=== PATIENT | female | born 1950 | race Caucasian/White ===

== ENCOUNTER 2020-12-19 20:32 | Inpatient (IN) ==
[2020-12-19] MEDS ORDERED: fentaNYL 100 MCG/2 ML VIAL IV PRN (20:38)
[2020-12-19] MEDS ORDERED: ONDANSETRON 4 MG/2 ML VIAL IV ONE (20:38)
--- NOTE | 2020-12-19 20:38 | Emergency Department Note ---
Altered Mental Status HPI General Chief Complaint: Altered Mental Status Stated Complaint: Headache confusion Time Seen by Provider: 12/19/20 20:37 Source: family Mode of arrival: wheelchair Limitations: altered mental status History of Present Illness HPI Narrative: Narrative: The patient is a 70-year-old female brought in by her with a chief complaint of headache and confusion. The patient and the patient's reports she has had a headache off and on for about 10 days now and the reports tonight that she became slightly confused and was complaining of headache. states that she also had her Covid vaccine yesterday.The patient was seen earlier today and was diagnosed with sinusitis and cycling. Related Data Home Medications Medication Instructions Recorded Confirmed albuterol sulfate 90 mcg/actuation See Rx Instructions INHALATION 02/02/20 12/19/20 aerosol inhaler .COMPLEX aspirin 81 mg tablet,delayed See Rx Instructions PO .COMPLEX 02/02/20 12/19/20 release Previous Rx's Medication Instructions Recorded escitalopram oxalate 20 mg tablet 20 mg PO QDAY #90 tab 11/06/19 spironolactone 25 mg tablet See Rx Instructions .ROUTE 11/06/19 .COMPLEX #90 tablet potassium chloride 10 mEq 20 meq PO QDAY #180 tab 05/31/20 tablet,extended release atorvastatin 40 mg tablet 40 mg PO QHS #90 tab 08/05/20 hydrocodone 10 mg-acetaminophen 1 tab PO Q6H PRN #120 tab 12/05/20 325 mg tablet doxycycline hyclate 100 mg capsule 100 mg PO BID 10 Days #20 cap 12/19/20 Allergies Allergy/AdvReac Type Severity Reaction Status Date / Time Penicillins Allergy Severe Rash and Verified 12/19/20 17:47 Psorasis JC Inhibitors Allergy Intermediate Respiratory Verified 12/19/20 17:47 problems, e.g. wheezing olmesartan [From Benicar] Allergy Intermediate Heartburn Verified 12/19/20 17:47 Fentanyl Patch Allergy Intermediate Nausea and Uncoded 02/28/20 09:35 vomiting Review of Systems ROS ROS Narrative: Narrative: Limitations: ROS unobtainable due to patients medical condition [facility] Narrative Patient History Narrative: Narrative: Medical/Surgical/Family History All Active Problems Hyperammonemia (Acute) AMS (altered mental status) (Acute) BLACK (acute kidney injury) (Acute) CHF (congestive heart failure) (Acute) Sinus congestion (Acute) Headache (Acute) Acute ethmoidal sinusitis (Acute) Lymphadenopathy (Acute) Osteoporosis (Acute) Radiculopathy of lumbar region (Chronic) Degenerative joint disease (Chronic) Myofascial pain (Chronic) Chronic, continuous use of opioids (Chronic) Status post replacement of right shoulder joint (Chronic ~2004) History of hysterectomy (Chronic) History of colonoscopy (Chronic 10/01/20) Dizziness (Chronic) Orthostatic hypotension (Chronic) Gouty arthritis of left great toe (Chronic) Psoriatic arthritis (Chronic) Migraines (Chronic) Degeneration of cervical intervertebral disc (Chronic) Hypertriglyceridemia (Chronic) Degenerative disc disease (Chronic) COPD (chronic obstructive pulmonary disease) (Chronic) Depression (Chronic) Abdominal aortic aneurysm (Chronic) Other half-way (current) drug therapy (Chronic) Low back pain syndrome (Chronic) CAD (coronary artery disease) (Chronic) URI (upper respiratory infection) (Chronic) Hypokalemia (Chronic) Intermittent chest pain (Chronic) Hypertension (Chronic) Renal insufficiency (Chronic) Contusion (Chronic) Right wrist sprain (Chronic) Medical History Abdominal aortic aneurysm Acute ethmoidal sinusitis CAD (coronary artery disease) Contusion COPD (chronic obstructive pulmonary disease) Degeneration of cervical intervertebral disc Degenerative disc disease Degenerative joint disease Depression Dizziness Gouty arthritis of left great toe Headache Hypertension Hypertriglyceridemia Hypokalemia Intermittent chest pain Low back pain syndrome Migraines Myofascial pain Orthostatic hypotension 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 Eller History of hysterectomy History of surgery TF JOSE RAUL #1 Lt L2-3 w/o sed 09/21/17 Trigger Point Injection, left Rhomboid w/o sed 07/23/2016 TF JOSE RAUL #1 L2-3, left w/o sed 07/23/2016 TPI\'s Left Rhomboid, Left PSIS 03/24/16 TF JOSE RAUL #2 Left L2-3 w/o sed 03/24/16 TF JOSE RAUL #1 Left L2-3 w/o sed 11/28/15 TF JOSE RAUL #2, Left L2-3 w/o sed 11/12/2014 TF JOSE RAUL #1 Left L2-3 w/o sed 05/29/2014 TF JOSE RAUL #1 L2-3 w/out sed 10-30-13 Lumbar Vertebroplasty L1 w/sed 10/16/2013 TF JOSE RAUL #2 L2-3 right w/out sed. 10-19-12 TF JOSE RAUL #1 Right L2-3 w/o sed 03-29-12 TF JOSE RAUL #2 Right L2-3 w/o sed 08-27-11 TF JOSE RAUL #1 L2-3, Right w/o sed 08-11-11 Status post replacement of right shoulder joint (~2004) Family History Mother Migraines Father Leukemia Heart disease Sister CVA (cerebral vascular accident) Social History Smoking Status: Current every day smoker Alcohol Intake Frequency: does not drink Substance Use: does not use Exam Narrative Narrative: Narrative: General Limitations: altered mental status General appearance: Present alert Head Head: Present atraumatic and normocephalic Eye Eye: Present normal appearance, PERRL and EOMI ENT ENT: Present normal exam, normal oropharynx and mucous membranes moist Neck Neck: Present normal inspection, full ROM and trachea midline Chest Chest: Present normal inspection and symmetric chest wall rise Respiratory Respiratory: Present normal lung sounds bilaterally Cardiovascular Cardiovascular: Present regular rate and normal rhythm Adbominal Abdominal: Present soft and normal bowel sounds; Absent tenderness, guarding, rebound and organomegaly Rectal Rectal: Present deferred Extremities Extremities: Present normal inspection and full ROM; Absent tenderness Back Back: Present normal inspection and full ROM; Absent tenderness Neurological Neurological: Present alert and CN II-XII intact Expanded Neurological Patient oriented to: Present person and place; Absent time Speech: Present fluid speech CRANIAL NERVES: EOM function (II, III, IV, ): Normal, facial sensation (V): Normal, facial palsy (VII): Normal, gag reflex (IX): Normal, spinal accessory function (XI): Normal and tongue deviation (XII): Normal CEREBELLAR FUNCTION: normal gait Motor strength - LUE: 4/5 Motor strength - RUE: 4/5 Motor strength - LLE: 4/5 Motor strength - RLE: 4/5 UPPER MOTOR NEURON EXAM: chase neglect: Normal, pronator drift: Normal, Babinski sign: Normal and sensory extinction: Normal Coma Scale Eye Opening: Spontaneous Coma Scale Motor Response: Obeys Commands Coma Scale Verbal Response: Confused Coma Scale Total: 14 Psychiatric Psychiatric: Present anxious and tearful Skin Skin: Present warm (WNL); Absent rash Course Course Course Narrative: EKG shows no STEMI CT scan of the head shows no acute abnormality. 1 view chest x-ray shows no obvious infiltrate or pneumothorax, final interpretation is per the radiolog ist.Patient's ammonia level is elevated, she was given 1 dose of lactulose, remainder of her LFTs and bilirubin are unremarkable. She does appear to have a mild acute kidney injury her BNP is mildly elevated. She has no chest pain or shortness of breath the patient was treated for her headache, she continues to be mildly confused on repeat reevaluation's. I did speak with the hospitalist, Dr. Bean, who graciously agreed to admit this patient. Vital Signs Vital signs: Vital Signs Temperature 98.1 F 12/19/20 20:33 Pulse Rate 76 12/19/20 20:33 Respiratory Rate 22 12/19/20 20:33 Blood Pressure 201/127 12/19/20 20:33 Pulse Oximetry (%) 96 12/19/20 20:33 Temperature 98.1 F 12/19/20 20:33 Pulse Rate 85 12/19/20 21:30 Respiratory Rate 24 H 12/19/20 21:30 Blood Pressure 208/115 12/19/20 21:30 Pulse Oximetry (%) 93 12/19/20 21:30 [facility] Narrative Medical decision making narrative: Narrative: 70-year-old female with headache and mild confusion negative CT scan of the head, elevated ammonia level, normal LFTs no chest pain or shortness of breath no abdominal pain, afebrile, negative Covid and influenza screening. Patient did receive her first Covid vaccine yesterday which she is experiencing today could possibly be an adverse event from her Covid vaccine. Patient will be admitted for further observation and treatment of her elevated ammonia level and MRI of the brain tomorrow. Lab Data Result diagrams: 12/19/20 20:51 12/19/20 20:51 Labs: Lab Results 12/19/20 12/19/20 12/19/20 Range/Units 20:51 20:51 20:51 WBC 9.3 (4.5-11.0) K/mcL RBC 4.35 (4.00-5.20) M/mcL Hgb 12.4 (12.0-15.0) g/dL Hct 37.6 (36.0-48.0) % MCV 86.4 (80.0-100.0) fL MCH 28.5 (26.0-34.0) pg MCHC 33.0 (31.0-36.0) g/dL RDW 13.8 (11.5-14.5) % Plt Count 266 (140-440) K/mcL MPV 8.8 (7.4-10.4) fL Neut % (Auto) 58.2 (38.0-78.0) % Lymph % (Auto) 31.9 (15.0-49.0) % Frio % (Auto) 5.4 (1.0-12.0) % Eos % (Auto) 3.7 (0.0-7.0) % Baso % (Auto) 0.8 (0.0-2.0) % Lymph # (Auto) 2.97 (1.50-4.80) K/mcL Frio # (Auto) 0.50 (0.10-0.90) K/mcL Eos # (Auto) 0.34 (0.00-0.70) K/mcL Baso # (Auto) 0.07 (0.00-0.20) K/mcL Absolute Neutrophils 5.42 (1.80-8.00) K/mcL VBG Lactic Acid 1.5 (0.5-2.0) mmol/L Sodium 134 (133-145) mmol/L Potassium 3.8 (3.3-5.1) mmol/L Chloride 97 (96-108) mmol/L Carbon Dioxide 20 L (22-30) mmol/L Anion Gap 17.0 H (8.0-16.0) BUN 17 (8-23) mg/dL Creatinine 1.2 H (0.6-1.1) mg/dL GFR Calculation 45 Glucose 133 H (70-105) mg/dL Calcium 9.8 (8.6-10.4) mg/dL Total Bilirubin 0.5 (0.1-1.0) mg/dL AST 19 (<32) U/L ALT 9 (<40) U/L Alkaline Phosphatase 78 (39-117) U/L Ammonia (11-51) umol/L Total Creatine Kinase 49 (24-170) U/L Troponin T (<0.03) ng/mL NT-Pro-B Natriuret Pep (<125.0) pg/mL Total Protein 7.4 (5.9-8.4) gm/dL Albumin 4.4 (3.2-5.2) gm/dL Globulin 3.0 (2.2-3.7) gm/dL Albumin/Globulin Ratio 1.5 (1.0-2.3) Lipase (7-60) U/L Urine Color Urine Appearance (Clear) Urine pH (5.0-9.0) Ur Specific [place] (1.000-1.035) Urine Protein (Negative) mg/dL Urine Glucose (UA) (Negative) mg/dL Urine Ketones (Negative) mg/dL Urine Occult Blood (Negative) mg/dL Urine Nitrate (Negative) Urine Bilirubin (Negative) mg/dL Urine Urobilinogen mg/dL Ur Leukocyte Esterase (Negative) /ug Urine RBC (0-3) /hpf Urine WBC (0-4) /hpf Ur Squamous Epith Cells (0-4) /hpf Urine Bacteria (0) /hpf Ur Culture Indicated? Acetaminophen ug/mL Ethyl Alcohol (<0.010) gm/dL 12/19/20 12/19/20 12/19/20 Range/Units 20:51 20:51 20:51 WBC (4.5-11.0) K/mcL RBC (4.00-5.20) M/mcL Hgb (12.0-15.0) g/dL Hct (36.0-48.0) % MCV (80.0-100.0) fL MCH (26.0-34.0) pg MCHC (31.0-36.0) g/dL RDW (11.5-14.5) % Plt Count (140-440) K/mcL MPV (7.4-10.4) fL Neut % (Auto) (38.0-78.0) % Lymph % (Auto) (15.0-49.0) % Frio % (Auto) (1.0-12.0) % Eos % (Auto) (0.0-7.0) % Baso % (Auto) (0.0-2.0) % Lymph # (Auto) (1.50-4.80) K/mcL Frio # (Auto) (0.10-0.90) K/mcL Eos # (Auto) (0.00-0.70) K/mcL Baso # (Auto) (0.00-0.20) K/mcL Absolute Neutrophils (1.80-8.00) K/mcL VBG Lactic Acid (0.5-2.0) mmol/L Sodium (133-145) mmol/L Potassium (3.3-5.1) mmol/L Chloride (96-108) mmol/L Carbon Dioxide (22-30) mmol/L Anion Gap (8.0-16.0) BUN (8-23) mg/dL Creatinine (0.6-1.1) mg/dL GFR Calculation Glucose (70-105) mg/dL Calcium (8.6-10.4) mg/dL Total Bilirubin (0.1-1.0) mg/dL AST (<32) U/L ALT (<40) U/L Alkaline Phosphatase (39-117) U/L Ammonia 88 H (11-51) umol/L Total Creatine Kinase (24-170) U/L Troponin T < 0.01 (<0.03) ng/mL NT-Pro-B Natriuret Pep (<125.0) pg/mL Total Protein (5.9-8.4) gm/dL Albumin (3.2-5.2) gm/dL Globulin (2.2-3.7) gm/dL Albumin/Globulin Ratio (1.0-2.3) Lipase (7-60) U/L Urine Color Urine Appearance (Clear) Urine pH (5.0-9.0) Ur Specific [place] (1.000-1.035) Urine Protein (Negative) mg/dL Urine Glucose (UA) (Negative) mg/dL Urine Ketones (Negative) mg/dL Urine Occult Blood (Negative) mg/dL Urine Nitrate (Negative) Urine Bilirubin (Negative) mg/dL Urine Urobilinogen mg/dL Ur Leukocyte Esterase (Negative) /ug Urine RBC (0-3) /hpf Urine WBC (0-4) /hpf Ur Squamous Epith Cells (0-4) /hpf Urine Bacteria (0) /hpf Ur Culture Indicated? Acetaminophen 9.3 ug/mL Ethyl Alcohol (<0.010) gm/dL 12/19/20 12/19/20 12/19/20 Range/Units 20:51 20:51 20:51 WBC (4.5-11.0) K/mcL RBC (4.00-5.20) M/mcL Hgb (12.0-15.0) g/dL Hct (36.0-48.0) % MCV (80.0-100.0) fL MCH (26.0-34.0) pg MCHC (31.0-36.0) g/dL RDW (11.5-14.5) % Plt Count (140-440) K/mcL MPV (7.4-10.4) fL Neut % (Auto) (38.0-78.0) % Lymph % (Auto) (15.0-49.0) % Frio % (Auto) (1.0-12.0) % Eos % (Auto) (0.0-7.0) % Baso % (Auto) (0.0-2.0) % Lymph # (Auto) (1.50-4.80) K/mcL Frio # (Auto) (0.10-0.90) K/mcL Eos # (Auto) (0.00-0.70) K/mcL Baso # (Auto) (0.00-0.20) K/mcL Absolute Neutrophils (1.80-8.00) K/mcL VBG Lactic Acid (0.5-2.0) mmol/L Sodium (133-145) mmol/L Potassium (3.3-5.1) mmol/L Chloride (96-108) mmol/L Carbon Dioxide (22-30) mmol/L Anion Gap (8.0-16.0) BUN (8-23) mg/dL Creatinine (0.6-1.1) mg/dL GFR Calculation Glucose (70-105) mg/dL Calcium (8.6-10.4) mg/dL Total Bilirubin (0.1-1.0) mg/dL AST (<32) U/L ALT (<40) U/L Alkaline Phosphatase (39-117) U/L Ammonia (11-51) umol/L Total Creatine Kinase (24-170) U/L Troponin T (<0.03) ng/mL NT-Pro-B Natriuret Pep 361.0 H (<125.0) pg/mL Total Protein (5.9-8.4) gm/dL Albumin (3.2-5.2) gm/dL Globulin (2.2-3.7) gm/dL Albumin/Globulin Ratio (1.0-2.3) Lipase 25 (7-60) U/L Urine Color Urine Appearance (Clear) Urine pH (5.0-9.0) Ur Specific [place] (1.000-1.035) Urine Protein (Negative) mg/dL Urine Glucose (UA) (Negative) mg/dL Urine Ketones (Negative) mg/dL Urine Occult Blood (Negative) mg/dL Urine Nitrate (Negative) Urine Bilirubin (Negative) mg/dL Urine Urobilinogen mg/dL Ur Leukocyte Esterase (Negative) /ug Urine RBC (0-3) /hpf Urine WBC (0-4) /hpf Ur Squamous Epith Cells (0-4) /hpf Urine Bacteria (0) /hpf Ur Culture Indicated? Acetaminophen ug/mL Ethyl Alcohol < 0.010 (<0.010) gm/dL 12/19/20 Range/Units 21:50 WBC (4.5-11.0) K/mcL RBC (4.00-5.20) M/mcL Hgb (12.0-15.0) g/dL Hct (36.0-48.0) % MCV (80.0-100.0) fL MCH (26.0-34.0) pg MCHC (31.0-36.0) g/dL RDW (11.5-14.5) % Plt Count (140-440) K/mcL MPV (7.4-10.4) fL Neut % (Auto) (38.0-78.0) % Lymph % (Auto) (15.0-49.0) % Frio % (Auto) (1.0-12.0) % Eos % (Auto) (0.0-7.0) % Baso % (Auto) (0.0-2.0) % Lymph # (Auto) (1.50-4.80) K/mcL Frio # (Auto) (0.10-0.90) K/mcL Eos # (Auto) (0.00-0.70) K/mcL Baso # (Auto) (0.00-0.20) K/mcL Absolute Neutrophils (1.80-8.00) K/mcL VBG Lactic Acid (0.5-2.0) mmol/L Sodium (133-145) mmol/L Potassium (3.3-5.1) mmol/L Chloride (96-108) mmol/L Carbon Dioxide (22-30) mmol/L Anion Gap (8.0-16.0) BUN (8-23) mg/dL Creatinine (0.6-1.1) mg/dL GFR Calculation Glucose (70-105) mg/dL Calcium (8.6-10.4) mg/dL Total Bilirubin (0.1-1.0) mg/dL AST (<32) U/L ALT (<40) U/L Alkaline Phosphatase (39-117) U/L Ammonia (11-51) umol/L Total Creatine Kinase (24-170) U/L Troponin T (<0.03) ng/mL NT-Pro-B Natriuret Pep (<125.0) pg/mL Total Protein (5.9-8.4) gm/dL Albumin (3.2-5.2) gm/dL Globulin (2.2-3.7) gm/dL Albumin/Globulin Ratio (1.0-2.3) Lipase (7-60) U/L Urine Color Yellow Urine Appearance Hazy A (Clear) Urine pH 6.0 (5.0-9.0) Ur Specific [place] 1.010 (1.000-1.035) Urine Protein Negative (Negative) mg/dL Urine Glucose (UA) Negative (Negative) mg/dL Urine Ketones 5 A (Negative) mg/dL Urine Occult Blood Negative (Negative) mg/dL Urine Nitrate Negative (Negative) Urine Bilirubin Negative (Negative) mg/dL Urine Urobilinogen Negative mg/dL Ur Leukocyte Esterase 25 A (Negative) /ug Urine RBC 1 (0-3) /hpf Urine WBC 4 (0-4) /hpf Ur Squamous Epith Cells 19 H (0-4) /hpf Urine Bacteria None (0) /hpf Ur Culture Indicated? No Acetaminophen ug/mL Ethyl Alcohol (<0.010) gm/dL ED POC Tests ED POC Tests: FITO - Influenza A Negative FITO - Influenza B Negative FITO - SARS Antigen Negative CC TIME Critical Care Time Critical Care Time: Yes Total Critical Care Time: 45 Discharge Plan Patient/Caregiver Discharge Instructions Pt seen by ENTRY LEVEL ACCOUNTING CLERK/PA only: No Clinical Impression: Hyperammonemia, BLACK (acute kidney injury) AMS (altered mental status) Qualifiers: Altered mental status type: unspecified Qualified Code(s): R41.82 - Altered mental status, unspecified CHF (congestive heart failure) Qualifiers: Heart failure type: unspecified Heart failure chronicity: unspecified Qualified Code(s): I50.9 - Heart failure, unspecified Patient Disposition: Xfer As Inpt ([facility]) Condition: Serious
[2020-12-19] MEDS ORDERED: 0.9 % SODIUM CHLORIDE 1,000 ML IV SCH (20:45)
[2020-12-19] MEDS ORDERED: LORazepam 2 MG/ML VIAL IV ONE (21:04)
[2020-12-19] MEDS ORDERED: LORazepam 2 MG/ML VIAL IV PRN (21:07)
[2020-12-19] MEDS ORDERED: LORazepam 2 MG/ML VIAL ONE (21:07)
[2020-12-19] MEDS ORDERED: 0.9 % SODIUM CHLORIDE 1,000 ML IV ONE (21:32)
[2020-12-19 21:47] LABS: Basophils # (Auto) 0.07 K/mcL (0.00-0.20); Basophils % (Auto) 0.8 % (0.0-2.0); Eosinophils # (Auto) 0.34 K/mcL (0.00-0.70); Eosinophils % (Auto) 3.7 % (0.0-7.0); Hematocrit 37.6 % (36.0-48.0); Hemoglobin 12.4 g/dL (12.0-15.0); Lymphocytes # (Auto) 2.97 K/mcL (1.50-4.80); Lymphocytes % (Auto) 31.9 % (15.0-49.0); Mean Cell Volume 86.4 fL (80.0-100.0); Mean Platelet Volume 8.8 fL (7.4-10.4); Monocytes % (Auto) 5.4 % (1.0-12.0); Neutrophils % (Auto) 58.2 % (38.0-78.0); Platelet Count 266 K/mcL (140-440); RBC 4.35 M/mcL (4.00-5.20); Red Cell Distribution Width 13.8 % (11.5-14.5); WBC 9.3 K/mcL (4.5-11.0)
[2020-12-19 22:11] LABS: ALT/SGPT 9 U/L (<40); AST/SGOT 19 U/L (<32); Albumin 4.4 gm/dL (3.2-5.2); Albumin/Globulin Ratio 1.5 (1.0-2.3); Alkaline Phosphatase 78 U/L (39-117); Bilirubin,Total 0.5 mg/dL (0.1-1.0); Blood Urea Nitrogen 17 mg/dL (8-23); Calcium 9.8 mg/dL (8.6-10.4); Carbon Dioxide 20 mmol/L (22-30); Chloride 97 mmol/L (96-108); Creatine Kinase 49 U/L (24-170); Glomerular Filtration Rate 45; Glucose 133 mg/dL (70-105)
[2020-12-19 22:16] LABS: Alcohol, Blood < 10.0 mg/dL; Alcohol,Blood < 0.010 gm/dL (<0.010)
[2020-12-19] MEDS ORDERED: LACTULOSE 20 GM/30 ML ORAL.SOL PO ONE (23:19)
[2020-12-19] MEDS ORDERED: LACTULOSE 20 GM/30 ML ORAL.SOL ONE (23:40)
[2020-12-20 00:17] LABS: Appearance,Urine HAZY (Clear); Bilirubin,Urine Negative (Negative); Color,Urine YELLOW; Culture Indicated,Urine No; Glucose,Urine (UA) Negative (Negative); Ketones,Urine 5 mg/dL (Negative); Leukocyte Esterase,Urine 25 /ug (Negative); Nitrate,Urine Negative (Negative); Protein,Urine Negative (Negative); Urine Blood Negative (Negative); Urine RBC 1 /hpf (0-3); Urine Squamous Epithelial Cell 19 /hpf (0-4); Urine WBC 4 /hpf (0-4); Urobilinogen,Urine Negative
[2020-12-20] MEDS ORDERED: ONDANSETRON 4 MG/2 ML VIAL IV PRN (00:31)
[2020-12-20 01:40] LABS: Amphetamine Screen,Urine None detected; Barbiturate Screen,Urine None detected; Benzodiazepines Screen,Urine None detected; Cannabinoid Screen,Urine Suspect Positive; Cocaine Screen,Urine None detected; Opiate Screen,Urine None detected; Oxycodone, Urine Screen None detected; Phencyclidine Screen,Urine None detected
--- NOTE | 2020-12-20 04:12 | XRay Report ---
CLINICAL INFORMATION: ams COMPARISON: 12/03/2010 FINDINGS: Heart is mildly enlarged accentuated by leftward rotation and portable technique. Mediastinum and pulmonary vessels are normal. Lungs are clear. No effusions. IMPRESSION: No acute disease. Interpreted and Authenticated by: Liam Ambrose 12/20/20
--- NOTE | 2020-12-20 04:17 | Cat Scan Report ---
CLINICAL INFORMATION: Headache and confusion COMPARISON: None. TECHNIQUE: 2.5 mm helical slices were obtained in the skull base to vertex. Following reconstruction, axial reformatted images were reviewed at bone and parenchymal windows. The exam was performed using radiation dose optimization techniques including, but not limited to, automated exposure control, adjustment of the mA and/or kV according to patient size and use of iterative reconstruction technique. FINDINGS: The ventricles, sulci, fissures, and cisterns are symmetrically enlarged compatible with mild age-related atrophy. No extra-axial fluid collections or mass appreciated. A 6 mm infarct in the right thalamus and a 10 mm remote lacunar infarct right frontal white matter are appreciated. Mild patchy chronic ischemic changes seen in the cerebral white matter are expected for age.There is no evidence of hemorrhage, mass effect, or edema. Bone windows show no osseous abnormality. IMPRESSION: Mild atrophy and patchy chronic ischemic changes in deep cerebral white matter. 6 mm remote lacunar infarct right thalamus and 10 mm remote infarct in the right deep frontal white matter. No intracerebral hemorrhage or other acute finding. Interpreted and Authenticated by: Liam Ambrose 12/20/20
[2020-12-20] MEDS ORDERED: ALBUTEROL SULFATE 200 PUFF INHALER INH PRN (07:45)
[2020-12-20] MEDS ORDERED: hydrALAZINE 20 MG/ML VIAL IV PRN (07:46)
[2020-12-20] MEDS ORDERED: SENNOSIDES 1 TABLET PO PRN (07:47)
[2020-12-20] MEDS ORDERED: ACETAMINOPHEN 325 MG TABLET PO PRN (07:47)
--- NOTE | 2020-12-20 08:00 | Internal Med History&Physical ---
HPI History of Present Illness Patient information: Note initiated : 12/20/20 at 7:54 am Service Date, if different from initiated Date: [] Patient: Nazanin Quarles 70 y/o F admitted on 12/20/20 for Headache confusion. Chief Complaint: [Headaches, confusion] History of present illness: Ms. Quarles is a 70 year old F negative past medical history as per family, presenting with altered mental status and headaches. There was no prior similar episode. Over the past 10 days, patient has been committing of intermittent headaches, described as sinus light, moderate in intensity, diffusely located in the whole head. She was also noted to be confused by her last night so she was brought to our ED for evaluation and treatment. CT of the head without contrast noting 6 mm remote lacunar infarct right thalamus and 10 mm remote infarct in the right deep frontal white matter. In addition, serum ammonia level was slightly elevated to 88. Urine drug screen positive for marijuana. Stool occult blood test positive. H&H unremarkable at 12.4 and 37.6. Review of Systems ROS unobtainable: due to mental status PFSH PFSH All Active Problems (Updated 12/20/20 @ 08:07 by Navid Bean MD) Occult blood positive stool (Acute) Acute ischemic stroke (Acute) Hyperammonemia (Acute) AMS (altered mental status) (Acute) BLACK (acute kidney injury) (Acute) CHF (congestive heart failure) (Acute) Sinus congestion (Acute) Headache (Acute) Acute ethmoidal sinusitis (Acute) Lymphadenopathy (Acute) Osteoporosis (Acute) Radiculopathy of lumbar region (Chronic) Degenerative joint disease (Chronic) Myofascial pain (Chronic) Chronic, continuous use of opioids (Chronic) Status post replacement of right shoulder joint (Chronic ~2004) History of hysterectomy (Chronic) History of colonoscopy (Chronic 10/01/20) Dizziness (Chronic) Orthostatic hypotension (Chronic) Gouty arthritis of left great toe (Chronic) Psoriatic arthritis (Chronic) Migraines (Chronic) Degeneration of cervical intervertebral disc (Chronic) Hypertriglyceridemia (Chronic) Degenerative disc disease (Chronic) COPD (chronic obstructive pulmonary disease) (Chronic) Depression (Chronic) Abdominal aortic aneurysm (Chronic) Other pound attendant (current) drug therapy (Chronic) Low back pain syndrome (Chronic) CAD (coronary artery disease) (Chronic) URI (upper respiratory infection) (Chronic) Hypokalemia (Chronic) Intermittent chest pain (Chronic) Hypertension (Chronic) Renal insufficiency (Chronic) Contusion (Chronic) Right wrist sprain (Chronic) Medical History Abdominal aortic aneurysm Acute ethmoidal sinusitis CAD (coronary artery disease) Contusion COPD (chronic obstructive pulmonary disease) Degeneration of cervical intervertebral disc Degenerative disc disease Degenerative joint disease Depression Dizziness Gouty arthritis of left great toe Headache Hypertension Hypertriglyceridemia Hypokalemia Intermittent chest pain Low back pain syndrome Migraines Myofascial pain Orthostatic hypotension Other pound attendant (current) drug therapy Psoriatic arthritis Radiculopathy of lumbar region Renal insufficiency Right wrist sprain Sinus congestion URI (upper respiratory infection) Surgical History History of colonoscopy (10/01/20) 07/04 Dr. Eller History of hysterectomy History of surgery TF JOSE RAUL #1 Lt L2-3 w/o sed 09/21/17 Trigger Point Injection, left Rhomboid w/o sed 07/23/2016 TF JOSE RAUL #1 L2-3, left w/o sed 07/23/2016 TPI\'s Left Rhomboid, Left PSIS 03/24/16 TF JOSE RAUL #2 Left L2-3 w/o sed 03/24/16 TF JOSE RAUL #1 Left L2-3 w/o sed 11/28/15 TF JOSE RAUL #2, Left L2-3 w/o sed 11/12/2014 TF JOSE RAUL #1 Left L2-3 w/o sed 05/29/2014 TF JOSE RAUL #1 L2-3 w/out sed 10-30-13 Lumbar Vertebroplasty L1 w/sed 10/16/2013 TF JOSE RAUL #2 L2-3 right w/out sed. 10-19-12 TF JOSE RAUL #1 Right L2-3 w/o sed 03-29-12 TF JOSE RAUL #2 Right L2-3 w/o sed 08-27-11 TF JOSE RAUL #1 L2-3, Right w/o sed 08-11-11 Status post replacement of right shoulder joint (~2004) Family History Mother Migraines Father Leukemia Heart disease Sister CVA (cerebral vascular accident) Social History marital status: occupational status: retired occupation: works at [email or web address] alcohol intake frequency: does not drink substance use type: does not use MEDS/ALLERGIES Home Medications and Allergies Home Medications Medication Instructions Recorded Confirmed Type escitalopram oxalate 20 mg tablet 20 mg PO QDAY #90 tab 11/06/19 12/20/20 Rx spironolactone 25 mg tablet See Rx Instructions .ROUTE 11/06/19 12/20/20 Rx .COMPLEX #90 tablet albuterol sulfate 90 mcg/actuation See Rx Instructions INHALATION 02/02/20 12/20/20 History aerosol inhaler .COMPLEX aspirin 81 mg tablet,delayed See Rx Instructions PO .COMPLEX 02/02/20 12/20/20 History release potassium chloride 10 mEq 20 meq PO QDAY #180 tab 05/31/20 12/20/20 Rx tablet,extended release atorvastatin 40 mg tablet 40 mg PO QHS #90 tab 08/05/20 12/20/20 Rx hydrocodone 10 mg-acetaminophen 1 tab PO Q6H PRN #120 tab 12/05/20 12/20/20 Rx 325 mg tablet doxycycline hyclate 100 mg capsule 100 mg PO BID 10 Days #20 cap 12/19/20 12/20/20 Rx Allergies Allergy/AdvReac Type Severity Reaction Status Date / Time Penicillins Allergy Severe Rash and Verified 12/19/20 17:47 Psorasis JC Inhibitors Allergy Intermediate Respiratory Verified 12/19/20 17:47 problems, e.g. wheezing olmesartan [From Benicar] Allergy Intermediate Heartburn Verified 12/19/20 17:47 Fentanyl Patch Allergy Intermediate Nausea and Uncoded 02/28/20 09:35 vomiting EXAM Constitutional Vitals: Temp Pulse Resp BP Pulse Ox 37.3 C H 82 14 165/97 96 12/20/20 07:19 12/20/20 07:19 12/20/20 07:19 12/20/20 07:19 12/20/20 07:19 General appearance: cooperative and no acute distress Head Head exam: Present atraumatic and normocephalic Eye Eye exam: Present EOMI and PERRL ENT ENT exam: Present mucous membranes moist, normal exam and normal external ear exam Neck Neck exam: Present normal inspection; Absent lymphadenopathy, tenderness and thyromegaly Respiratory Respiratory exam: Absent accessory muscle use, respiratory distress and wheezes Cardiovascular Cardiovascular exam: Present normal rate and rhythm; Absent JVD GI/Abdominal GI/Abdominal exam: Present normal bowel sounds and soft; Absent organomegaly and tenderness Extremities Exam Extremities exam: Present full ROM, normal capillary refill and normal inspection; Absent tenderness Neurological Exam Neurological exam: Present alert and CN II-XII intact; Absent motor sensory deficit and oriented X3 Additional comments: Alert and oriented x2 to person and time only she cannot recognize her daughter at the bedside Psychiatric Psychiatric exam: Present normal affect and normal mood; Absent anxious and depressed Skin Skin exam: Present dry and intact DATA Data Completed and Pending Labs: Labs from last 24 hours 12/19/20 12/19/20 12/19/20 21:50 21:50 20:51 WBC RBC Hgb Hct MCV MCH MCHC RDW Plt Count MPV Neut % (Auto) Lymph % (Auto) [place] % (Auto) Eos % (Auto) Baso % (Auto) Lymph # (Auto) [place] # (Auto) Eos # (Auto) Baso # (Auto) Absolute Neutrophils VBG Lactic Acid Sodium Potassium Chloride Carbon Dioxide Anion Gap BUN Creatinine GFR Calculation Glucose Calcium Total Bilirubin AST ALT Alkaline Phosphatase Ammonia Total Creatine Kinase Troponin T NT-Pro-B Natriuret Pep Total Protein Albumin Globulin Albumin/Globulin Ratio Lipase Urine Color Yellow Urine Appearance Hazy A Urine pH 6.0 Ur Specific [place] 1.010 Urine Protein Negative Urine Glucose (UA) Negative Urine Ketones 5 A Urine Occult Blood Negative Urine Nitrate Negative Urine Bilirubin Negative Urine Urobilinogen Negative Ur Leukocyte Esterase 25 A Urine RBC 1 Urine WBC 4 Ur Squamous Epith Cells 19 H Urine Bacteria None Ur Culture Indicated? No Salicylates Pending Urine Opiates Screen None detected Ur Opiates Confirm TNP Ur Oxycodone Screen None detected Urine Methadone Screen None detected Ur Methadone Confirm TNP Acetaminophen Ur Barbiturates Screen None detected Ur Barbiturate Confirm TNP Ur Phencyclidine Scrn None detected Urine PCP Confirm TNP Ur Amphetamines Screen None detected U Amphetamines Confirm TNP U Benzodiazepines Scrn None detected U Benzodiazepine Confm TNP Urine Cocaine Screen None detected Urine Cocaine Confirm TNP U Cannabinoids Confirm Pending U Marijuana (THC) Screen Suspect positive A Ethyl Alcohol 12/19/20 12/19/20 12/19/20 20:51 20:51 20:51 WBC RBC Hgb Hct MCV MCH MCHC RDW Plt Count MPV Neut % (Auto) Lymph % (Auto) [place] % (Auto) Eos % (Auto) Baso % (Auto) Lymph # (Auto) [place] # (Auto) Eos # (Auto) Baso # (Auto) Absolute Neutrophils VBG Lactic Acid Sodium Potassium Chloride Carbon Dioxide Anion Gap BUN Creatinine GFR Calculation Glucose Calcium Total Bilirubin AST ALT Alkaline Phosphatase Ammonia Total Creatine Kinase Troponin T NT-Pro-B Natriuret Pep 361.0 H Total Protein Albumin Globulin Albumin/Globulin Ratio Lipase 25 Urine Color Urine Appearance Urine pH Ur Specific [place] Urine Protein Urine Glucose (UA) Urine Ketones Urine Occult Blood Urine Nitrate Urine Bilirubin Urine Urobilinogen Ur Leukocyte Esterase Urine RBC Urine WBC Ur Squamous Epith Cells Urine Bacteria Ur Culture Indicated? Salicylates Urine Opiates Screen Ur Opiates Confirm Ur Oxycodone Screen Urine Methadone Screen Ur Methadone Confirm Acetaminophen Ur Barbiturates Screen Ur Barbiturate Confirm Ur Phencyclidine Scrn Urine PCP Confirm Ur Amphetamines Screen U Amphetamines Confirm U Benzodiazepines Scrn U Benzodiazepine Confm Urine Cocaine Screen Urine Cocaine Confirm U Cannabinoids Confirm U Marijuana (THC) Screen Ethyl Alcohol < 0.010 12/19/20 12/19/20 12/19/20 20:51 20:51 20:51 WBC RBC Hgb Hct MCV MCH MCHC RDW Plt Count MPV Neut % (Auto) Lymph % (Auto) [place] % (Auto) Eos % (Auto) Baso % (Auto) Lymph # (Auto) [place] # (Auto) Eos # (Auto) Baso # (Auto) Absolute Neutrophils VBG Lactic Acid Sodium Potassium Chloride Carbon Dioxide Anion Gap BUN Creatinine GFR Calculation Glucose Calcium Total Bilirubin AST ALT Alkaline Phosphatase Ammonia 88 H Total Creatine Kinase Troponin T < 0.01 NT-Pro-B Natriuret Pep Total Protein Albumin Globulin Albumin/Globulin Ratio Lipase Urine Color Urine Appearance Urine pH Ur Specific [place] Urine Protein Urine Glucose (UA) Urine Ketones Urine Occult Blood Urine Nitrate Urine Bilirubin Urine Urobilinogen Ur Leukocyte Esterase Urine RBC Urine WBC Ur Squamous Epith Cells Urine Bacteria Ur Culture Indicated? Salicylates Urine Opiates Screen Ur Opiates Confirm Ur Oxycodone Screen Urine Methadone Screen Ur Methadone Confirm Acetaminophen 9.3 Ur Barbiturates Screen Ur Barbiturate Confirm Ur Phencyclidine Scrn Urine PCP Confirm Ur Amphetamines Screen U Amphetamines Confirm U Benzodiazepines Scrn U Benzodiazepine Confm Urine Cocaine Screen Urine Cocaine Confirm U Cannabinoids Confirm U Marijuana (THC) Screen Ethyl Alcohol 12/19/20 12/19/20 12/19/20 20:51 20:51 20:51 WBC 9.3 RBC 4.35 Hgb 12.4 Hct 37.6 MCV 86.4 MCH 28.5 MCHC 33.0 RDW 13.8 Plt Count 266 MPV 8.8 Neut % (Auto) 58.2 Lymph % (Auto) 31.9 [place] % (Auto) 5.4 Eos % (Auto) 3.7 Baso % (Auto) 0.8 Lymph # (Auto) 2.97 [place] # (Auto) 0.50 Eos # (Auto) 0.34 Baso # (Auto) 0.07 Absolute Neutrophils 5.42 VBG Lactic Acid 1.5 Sodium 134 Potassium 3.8 Chloride 97 Carbon Dioxide 20 L Anion Gap 17.0 H BUN 17 Creatinine 1.2 H GFR Calculation 45 Glucose 133 H Calcium 9.8 Total Bilirubin 0.5 AST 19 ALT 9 Alkaline Phosphatase 78 Ammonia Total Creatine Kinase 49 Troponin T NT-Pro-B Natriuret Pep Total Protein 7.4 Albumin 4.4 Globulin 3.0 Albumin/Globulin Ratio 1.5 Lipase Urine Color Urine Appearance Urine pH Ur Specific [place] Urine Protein Urine Glucose (UA) Urine Ketones Urine Occult Blood Urine Nitrate Urine Bilirubin Urine Urobilinogen Ur Leukocyte Esterase Urine RBC Urine WBC Ur Squamous Epith Cells Urine Bacteria Ur Culture Indicated? Salicylates Urine Opiates Screen Ur Opiates Confirm Ur Oxycodone Screen Urine Methadone Screen Ur Methadone Confirm Acetaminophen Ur Barbiturates Screen Ur Barbiturate Confirm Ur Phencyclidine Scrn Urine PCP Confirm Ur Amphetamines Screen U Amphetamines Confirm U Benzodiazepines Scrn U Benzodiazepine Confm Urine Cocaine Screen Urine Cocaine Confirm U Cannabinoids Confirm U Marijuana (THC) Screen Ethyl Alcohol A/P Assessment and plan (1) Acute ischemic stroke: Status: Acute Comment: 1. Acute ischemic stroke: Admit to inpatient PCU NPO NS@100cc/hr Physical therapy Occupational therapy Speech therapy for swallowing evaluation for any potential dysphagia Permissive hypertensive for 48 hours; Hold home regimen for oral antihypertensives; Hydralazine 10mg IV q4hr PRN SBP>=220 and/or DBP>=120 CT angio head and neck 2D echocardiogram 2. Elevated ammonia level: No history of cirrhosis, cannot exclude the causal effect between this and a ltered mental status Lactulose PO BID, when cleared by speech therapy 3. Positive stool occult blood screening: Stable H/H. No hematemesis/hematochezia Protonix 40mg PO daily cbc w/ auto diff in the morning to trend H/H, transfuse pRBC if hemoglobin <7.0 or active bleeding 4. Acute kidnye injury vs chronic kidney disease: Unknown baseline serum Cr level, currently at 1.2 NS@100cc/hr Repeat CMP in the AM to trend kidney functions GI ppx: Protonix PO DVT ppx: Heparin Code status: Full Prognosis: guarded Disposition: inpatient PCU (2) Hyperammonemia: Status: Acute (3) Hypertension: Status: Chronic (4) Occult blood positive stool: Status: Acute (5) Renal insufficiency: Status: Chronic (6) BLACK (acute kidney injury): Status: Acute Time Spent With Patient Time: Total time spent is greater than 50% in coordination of care (as documented) at patient's floor/unit and/or counseling patient: QUALITY VTE Deep Vein Thrombosis/Pulmonary Embolism Present on Admission: No
[2020-12-20] MEDS ORDERED: IOPAMIDOL 100 ML BOTTLE IV ONE (08:37)
[2020-12-20] MEDS: 0.9 % SODIUM CHLORIDE 1,000 ML IV SCH ×2 (08:51→18:58)
[2020-12-20] MEDS ORDERED: DOCUSATE SODIUM 100 MG CAPSULE PO SCH (09:00)
[2020-12-20 09:20] LABS: Prothrombin Time 13.6 sec (11.9-14.5)
--- NOTE | 2020-12-20 09:24 | Cat Scan Report ---
CLINICAL INFORMATION: Headache and confusion weakness evaluate for CVA COMPARISON: None. TECHNIQUE: 80 cc of Isovue-370 were injected intravenously, and using SmartPrep to maximize arterial opacification, 0.625 mm helical slices were obtained from the thoracic aortic arch through the [place]. Following reconstruction, 2.5mm sagittal, coronal and axial reformatted images were processed and reviewed at standard and bone algorithm/window. 3-D volume rendered, CPR and MIP images were processed using a [employer] work station.The exam was performed using radiation dose optimization techniques including, but not limited to, automated exposure control, adjustment of the mA and/or kV according to patient size and use of iterative reconstruction technique. FINDINGS: .The thoracic aorta is normal diameter. There is extremely heavy fibrofatty atherosclerotic plaque. A 1.2 cm penetrating atherosclerotic ulcer is seen in the posterior wall the proximal descending thoracic aorta. Aortic branching is conventional. There is mild fibrofatty and calcific atherosclerotic plaque in both carotid bifurcations, but no stenosis. Both common, internal and external carotid, both vertebral brachiocephalic and both subclavian arteries contain plaque but no stenoses. No soft tissue abnormalities. Lung apices show mild centrilobular emphysema. IMPRESSION: 1. Mild fibrofatty calcific plaque in both carotid bifurcations, but no stenoses. All carotid, vertebral, brachiocephalic and subclavian arteries are widely patent 2. Heavy fibrofatty calcific plaque in the thoracic arch with a 1.2 cm broad-based atherosclerotic ulcer in the proximal descending thoracic aorta. This may serve as a nidus for thrombus which can undergo distal embolization. 3. Centrilobular emphysema Interpreted and Authenticated by: Liam Ambrose 12/20/20
--- NOTE | 2020-12-20 09:25 | Cat Scan Report ---
CLINICAL INFORMATION: Confusion weakness. Question CVA COMPARISON: None. TECHNIQUE: 80 cc of Isovue-370 were injected intravenously , and using SmartPrep to maximize cerebral arterial opacification, 0.625 mm helical slices were obtained from the skull base through the cerebral vertex. Following reconstruction , sagittal, coronal and axial reformatted images were processed and reviewed at multiple windows and levels. 3D volume rendered and MIP images were acquired at a independent workstation. The exam was performed using radiation dose optimization techniques including, but not limited to, automated exposure control, adjustment of the mA and/or kV according to patient size and use of iterative reconstruction technique. FINDINGS: The intracranial internal carotid, vertebral, basilar, anterior middle and posterior cerebral arteries contain scattered atherosclerotic plaque, but no significant stenosis or occlusion. The superficial and deep cerebral veins and deep venous sinuses are widely patent. IMPRESSION: Negative Interpreted and Authenticated by: Liam Ambrose 12/20/20
[2020-12-20 09:32] LABS: HDL Cholesterol 46 mg/dL (>40); LDL Cholesterol,Calculated 145 mg/dL (<100); Non-HDL Cholesterol 170 mg/dL (<130); Triglycerides 130 mg/dL (<150)
[2020-12-20 09:43] LABS: ALT/SGPT 7 U/L (<40); AST/SGOT 17 U/L (<32); Albumin 4.3 gm/dL (3.2-5.2); Albumin/Globulin Ratio 1.7 (1.0-2.3); Alkaline Phosphatase 74 U/L (39-117); Bilirubin,Total 0.4 mg/dL (0.1-1.0); Blood Urea Nitrogen 15 mg/dL (8-23); Calcium 9.5 mg/dL (8.6-10.4); Carbon Dioxide 22 mmol/L (22-30); Chloride 98 mmol/L (96-108); Globulin 2.5 gm/dL (2.2-3.7); Glomerular Filtration Rate 56; Glucose 100 mg/dL (70-105)
[2020-12-20 09:44] LABS: Estimated Average Glucose(eAG) 120 mg/dL; Hemoglobin A1C 5.8 % Hgb (4.0-6.0)
[2020-12-20] MEDS: 0.9 % SODIUM CHLORIDE 10 ML SYRINGE IV SCH ×5 (10:01→21:37)
[2020-12-20] MEDS: DOCUSATE SODIUM 100 MG CAPSULE PO SCH ×2 (10:08→21:30)
[2020-12-20] MEDS: ESCITALOPRAM 20 MG TABLET PO SCH (10:09)
[2020-12-20] MEDS: HEPARIN 5,000 UNIT/ML VIAL SQ SCH ×2 (10:36→21:30)
[2020-12-20] MEDS ORDERED: LACTULOSE 20 GM/30 ML ORAL.SOL PR ONE (10:44)
[2020-12-20] MEDS: LACTULOSE 20 GM/30 ML ORAL.SOL PO SCH ×2 (11:43→21:29)
[2020-12-20] MEDS: ONDANSETRON 4 MG/2 ML VIAL IV PRN ×2 (14:32→19:21)
[2020-12-20] MEDS: HYDROcodone/APAP 10/325MG TABLET PO PRN (18:50)
[2020-12-20] MEDS: NICOTINE 21 MG PATCH TOPICAL SCH (20:56)
[2020-12-20] MEDS ORDERED: ATORVASTATIN 40 MG TABLET PO SCH (21:00)
[2020-12-20] MEDS ORDERED: PANTOPRAZOLE 40 MG TABLET PO SCH (21:00)
[2020-12-20] MEDS ORDERED: SENNOSIDES 1 TABLET PO SCH (21:00)
[2020-12-21] MEDS: 0.9 % SODIUM CHLORIDE 1,000 ML IV SCH (05:03)
[2020-12-21] MEDS: HYDROcodone/APAP 10/325MG TABLET PO PRN (05:18)
[2020-12-21] MEDS: 0.9 % SODIUM CHLORIDE 10 ML SYRINGE IV SCH (05:45)
[2020-12-21 07:30] LABS: Basophils # (Auto) 0.07 K/mcL (0.00-0.20); Basophils % (Auto) 0.7 % (0.0-2.0); Eosinophils # (Auto) 0.23 K/mcL (0.00-0.70); Eosinophils % (Auto) 2.3 % (0.0-7.0); Hematocrit 36.2 % (36.0-48.0); Hemoglobin 11.6 g/dL (12.0-15.0); Lymphocytes # (Auto) 2.93 K/mcL (1.50-4.80); Lymphocytes % (Auto) 29.4 % (15.0-49.0); Mean Cell Volume 88.3 fL (80.0-100.0); Mean Platelet Volume 9.1 fL (7.4-10.4); Monocytes # (Auto) 0.63 K/mcL (0.10-0.90); Monocytes % (Auto) 6.3 % (1.0-12.0); Neutrophils % (Auto) 61.3 % (38.0-78.0); Platelet Count 270 K/mcL (140-440); Red Cell Distribution Width 13.7 % (11.5-14.5)
[2020-12-21 08:09] LABS: ALT/SGPT 7 U/L (<40); AST/SGOT 16 U/L (<32); Albumin 3.7 gm/dL (3.2-5.2); Albumin/Globulin Ratio 1.3 (1.0-2.3); Alkaline Phosphatase 64 U/L (39-117); Bilirubin,Total 0.5 mg/dL (0.1-1.0); Blood Urea Nitrogen 12 mg/dL (8-23); Carbon Dioxide 22 mmol/L (22-30); Chloride 103 mmol/L (96-108); Globulin 2.8 gm/dL (2.2-3.7); Glomerular Filtration Rate 64; Glucose 80 mg/dL (70-105)
[2020-12-21 08:40] LABS: ALT/SGPT 7 U/L (<40); AST/SGOT 17 U/L (<32); Albumin 3.7 gm/dL (3.2-5.2); Albumin/Globulin Ratio 1.4 (1.0-2.3); Alkaline Phosphatase 64 U/L (39-117); Bilirubin,Direct < 0.2 mg/dL (0-0.3); Bilirubin,Total 0.5 mg/dL (0.1-1.0); Blood Urea Nitrogen 12 mg/dL (8-23); Carbon Dioxide 22 mmol/L (22-30); Chloride 101 mmol/L (96-108); Globulin 2.7 gm/dL (2.2-3.7); Glomerular Filtration Rate 56; Glucose 80 mg/dL (70-105); Lactate Dehydrogenase 222 U/L (135-225); Phosphorous 2.5 mg/dL (2.5-4.5); Triglycerides 116 mg/dL (<150); Uric Acid 5.4 mg/dL (2.5-8.0)
[2020-12-21] MEDS: LACTULOSE 20 GM/30 ML ORAL.SOL PO SCH (08:50)
[2020-12-21] MEDS: ESCITALOPRAM 20 MG TABLET PO SCH (08:50)
[2020-12-21] MEDS: NICOTINE 21 MG PATCH TOPICAL SCH (08:51)
[2020-12-21] MEDS: HEPARIN 5,000 UNIT/ML VIAL SQ SCH (08:51)
[2020-12-21] MEDS: DOCUSATE SODIUM 100 MG CAPSULE PO SCH (08:51)
[2020-12-21] MEDS ORDERED: ASPIRIN 81 MG TAB.CHEW PO SCH (09:00)
--- NOTE | 2020-12-21 09:00 | Discharge Summary ---
Discharge Provider Provider Patient information: Note initiated : 12/21/20 at 8:55 am Service Date, if different from initiated Date: [] Patient: Nazanin Quarles 70 y/o F admitted on 12/20/20 for Headache confusion. Chief Complaint: [] Date of admission: 12/20/20 00:12 Discharge date: 12/21/20 Primary care physician: Ju Silva Consults: 12/20/20 07:58 Consult to Physician [CONS] Routine Comment: Consulting Provider: Navid Bean Reason For Exam: Physician to Consult Discharge Meds Discharge Medications Home Medications escitalopram oxalate 20 mg tablet 20 mg PO QDAY #90 tab 11/06/19 [Rx Confirmed 12/20/20 Last Taken Unknown] spironolactone 25 mg tablet See Rx Instructions .ROUTE .COMPLEX #90 tablet 11/06/19 [Rx Confirmed 12/20/20 Last Taken Unknown] albuterol sulfate 90 mcg/actuation aerosol inhaler See Rx Instructions INHALATION .COMPLEX 02/02/20 [History Confirmed 12/20/20 Last Taken Unknown] aspirin 81 mg tablet,delayed release See Rx Instructions PO .COMPLEX 02/02/20 [History Confirmed 12/20/20 Last Taken Unknown] atorvastatin 40 mg tablet 40 mg PO QHS #90 tab 08/05/20 [Rx Confirmed 12/20/20 Last Taken Unknown] hydrocodone 10 mg-acetaminophen 325 mg tablet 1 tab PO Q6H PRN #120 tab 12/05/20 [Rx Confirmed 12/20/20 Last Taken Unknown] lactulose 10 gm PO BID 14 Days ml 12/21/20 [Rx Last Taken Unknown] COURSE Hospital Course Hospital course: Ischemic stroke seen by CT head without contrast. 2D echocardiogram did not show any thrombus in the heart or any wall motion deficit. CT angiogram of head and neck also performed and no vascular abnormalities found. Aspirin and statin started. She was also found to have elevated serum ammonia level and lactulose was started. Physical therapy, occupational therapy, and speech therapy were consulted and evaluated patient. Patient's mental status and neurological status went back to baseline by second day hospitalization. As such, the decision was made to discharge her home with Rx Lactulose given. Aspirin and statin continued. Instruction to follow up with PCP in 2 week given to patient. Discharge diagnosis: Ischemic stroke Time Spent with Patient Time attestation: Total time spent providing and/or coordinating discharge services: Time spent: Less than 30 minutes EXAM Constitutional Vitals: Temp Pulse Resp BP Pulse Ox 37.6 C H 73 24 H 174/100 95 12/21/20 08:01 12/21/20 08:01 12/21/20 08:01 12/21/20 08:01 12/21/20 08:01 General appearance: cooperative and no acute distress Head Head exam: Present atraumatic and normocephalic Eye Eye exam: Present EOMI and PERRL ENT ENT exam: Present mucous membranes moist, normal exam and normal external ear exam Neck Neck exam: Present normal inspection; Absent lymphadenopathy, tenderness and thyromegaly Respiratory Respiratory exam: Absent accessory muscle use, respiratory distress and wheezes Cardiovascular Cardiovascular exam: Present normal rate and rhythm; Absent JVD GI/Abdominal GI/Abdominal exam: Present normal bowel sounds and soft; Absent organomegaly and tenderness Extremities Exam Extremities exam: Present full ROM, normal capillary refill and normal inspection; Absent tenderness Neurological Exam Neurological exam: Present alert, CN II-XII intact and oriented X3; Absent motor sensory deficit Psychiatric Psychiatric exam: Present normal affect and normal mood; Absent anxious and depressed Skin Skin exam: Present dry and intact Discharge Data Data Completed and Pending Labs on day of discharge: Labs from last 24 hours 12/21/20 12/21/20 12/21/20 05:30 05:30 05:30 WBC 10.0 RBC 4.10 Hgb 11.6 L Hct 36.2 MCV 88.3 MCH 28.3 MCHC 32.0 RDW 13.7 Plt Count 270 MPV 9.1 Neut % (Auto) 61.3 Lymph % (Auto) 29.4 [place] % (Auto) 6.3 Eos % (Auto) 2.3 Baso % (Auto) 0.7 Lymph # (Auto) 2.93 [place] # (Auto) 0.63 Eos # (Auto) 0.23 Baso # (Auto) 0.07 Absolute Neutrophils 6.09 PT INR Sodium 134 136 Potassium 3.5 3.4 Chloride 101 103 Carbon Dioxide 22 22 Anion Gap 11.0 11.0 BUN 12 12 Creatinine 1.0 0.9 GFR Calculation 56 64 Glucose 80 80 Hemoglobin A1c Estim Average Glucose Uric Acid 5.4 Calcium 9.0 9.0 Phosphorus 2.5 Magnesium 1.8 Total Bilirubin 0.5 0.5 Direct Bilirubin < 0.2 GGT 18 AST 17 16 ALT 7 7 Alkaline Phosphatase 64 64 Lactate Dehydrogenase 222 Total Protein 6.4 6.5 Albumin 3.7 3.7 Globulin 2.7 2.8 Albumin/Globulin Ratio 1.4 1.3 Triglycerides 116 Cholesterol LDL Cholesterol, Calc Non-HDL Cholesterol HDL Cholesterol Salicylates 12/20/20 12/20/20 12/20/20 08:07 08:07 08:06 WBC RBC Hgb Hct MCV MCH MCHC RDW Plt Count MPV Neut % (Auto) Lymph % (Auto) [place] % (Auto) Eos % (Auto) Baso % (Auto) Lymph # (Auto) [place] # (Auto) Eos # (Auto) Baso # (Auto) Absolute Neutrophils PT 13.6 INR 1.0 Sodium 133 Potassium 4.1 Chloride 98 Carbon Dioxide 22 Anion Gap 13.0 BUN 15 Creatinine 1.0 GFR Calculation 56 Glucose 100 Hemoglobin A1c 5.8 Estim Average Glucose 120 Uric Acid Calcium 9.5 Phosphorus Magnesium Total Bilirubin 0.4 Direct Bilirubin GGT AST 17 ALT 7 Alkaline Phosphatase 74 Lactate Dehydrogenase Total Protein 6.8 Albumin 4.3 Globulin 2.5 Albumin/Globulin Ratio 1.7 Triglycerides 130 Cholesterol 216 H LDL Cholesterol, Calc 145 H Non-HDL Cholesterol 170 H HDL Cholesterol 46 Salicylates 12/19/20 20:51 WBC RBC Hgb Hct MCV MCH MCHC RDW Plt Count MPV Neut % (Auto) Lymph % (Auto) [place] % (Auto) Eos % (Auto) Baso % (Auto) Lymph # (Auto) [place] # (Auto) Eos # (Auto) Baso # (Auto) Absolute Neutrophils PT INR Sodium Potassium Chloride Carbon Dioxide Anion Gap BUN Creatinine GFR Calculation Glucose Hemoglobin A1c Estim Average Glucose Uric Acid Calcium Phosphorus Magnesium Total Bilirubin Direct Bilirubin GGT AST ALT Alkaline Phosphatase Lactate Dehydrogenase Total Protein Albumin Globulin Albumin/Globulin Ratio Triglycerides Cholesterol LDL Cholesterol, Calc Non-HDL Cholesterol HDL Cholesterol Salicylates < 0.3 Preliminary micro results at discharge 12/19/20 22:45 Blood Culture - Preliminary Blood 12/19/20 22:17 Blood Culture - Preliminary Blood Discharge Plan Patient/Caregiver Discharge Instructions Activity: increase activity as tolerated Diet: Regular Diet Activity Restrictions/Additional Instructions: 2 week PCP follow up appointment Prescriptions: New lactulose 20 gram/30 mL Solution 10 gm PO BID 14 Days RF: 1 Continued escitalopram oxalate [Lexapro] 20 mg tablet 20 mg PO QDAY Qty: 90 RF: 4 spironolactone 25 mg tablet See Rx Instructions .ROUTE .COMPLEX Qty: 90 RF: 4 atorvastatin 40 mg tablet 40 mg PO QHS Qty: 90 RF: 1 hydrocodone-acetaminophen 10-325 mg tablet 1 tab PO Q6H PRN (Reason: Pain) Qty: 120 RF: 0 albuterol sulfate 90 mcg/actuation HFA aerosol inhaler See Rx Instructions INHALATION .COMPLEX RF: 0 aspirin 81 mg tablet,delayed release (DR/EC) See Rx Instructions PO .COMPLEX RF: 0 Discontinued potassium chloride 10 mEq tablet extended release 20 meq PO QDAY Qty: 180 RF: 4 doxycycline hyclate 100 mg capsule 100 mg PO BID 10 Days Qty: 20 RF: 0 Follow Up Plan Follow up with: Ju Silva ARNP [Primary Care Provider] - 12/20/20 Patient Disposition: Home, Self-Care Prognosis: Serious Rehab Potential: Good Overall status at discharge: patient is back to baseline Discharge Orders: Discharge Order (Routine); Ordered 12/21/20 Ordered By: Navid SPENCER VTE Deep Vein Thrombosis/Pulmonary Embolism Present on Admission: No
[2020-12-27 17:32] LABS: Cannabinoid Confirmation Positive
== END 2020-12-21 12:01 | disposition home or self-care (01) | DRG 65 ==
LOC: ICU 20:32 → ED 20:32 → ICU 12-20 00:10 → OBSVTOIN 12-20 00:12 → ICU 12-20 08:30
PROVIDERS: ADMIT Internal Medicine; ATTEND Internal Medicine

== ENCOUNTER 2020-12-23 10:44 | Inpatient (IN) ==
[2020-12-23] MEDS ORDERED: diphenhydrAMINE 50 MG/ML VIAL IV ONE (10:52)
[2020-12-23] MEDS ORDERED: ONDANSETRON 4 MG/2 ML VIAL IV ONE (10:52)
[2020-12-23] MEDS ORDERED: morphine 10 MG/ML VIAL IV PRN (10:52)
[2020-12-23] MEDS ORDERED: LORazepam 2 MG/ML VIAL IV ONE (10:54)
[2020-12-23] MEDS ORDERED: morphine 2 MG/ML VIAL ONE (10:59)
[2020-12-23 11:54] LABS: Basophils # (Auto) 0.06 K/mcL (0.00-0.20); Basophils % (Auto) 0.7 % (0.0-2.0); Eosinophils # (Auto) 0.06 K/mcL (0.00-0.70); Eosinophils % (Auto) 0.7 % (0.0-7.0); Hematocrit 37.5 % (36.0-48.0); Hemoglobin 12.8 g/dL (12.0-15.0); Lymphocytes # (Auto) 1.51 K/mcL (1.50-4.80); Lymphocytes % (Auto) 16.8 % (15.0-49.0); Mean Cell Volume 84.3 fL (80.0-100.0); Mean Corpuscular HGB Conc 34.1 g/dL (31.0-36.0); Mean Platelet Volume 9.1 fL (7.4-10.4); Monocytes # (Auto) 0.35 K/mcL (0.10-0.90); Monocytes % (Auto) 3.9 % (1.0-12.0); Neutrophils % (Auto) 77.9 % (38.0-78.0); Platelet Count 328 K/mcL (140-440); RBC 4.45 M/mcL (4.00-5.20); Red Cell Distribution Width 13.4 % (11.5-14.5)
--- NOTE | 2020-12-23 11:55 | Cat Scan Report ---
CLINICAL INFORMATION: Altered mental status COMPARISON: 12/19/2020 TECHNIQUE: 2.5 mm helical slices were obtained in the skull base to vertex. Following reconstruction, axial reformatted images were reviewed at bone and parenchymal windows. The exam was performed using radiation dose optimization techniques including, but not limited to, automated exposure control, adjustment of the mA and/or kV according to patient size and use of iterative reconstruction technique. FINDINGS: The ventricles, sulci, fissures, and cisterns are symmetrically enlarged compatible with mild age-related atrophy. No extra-axial fluid collections or mass appreciated. A 6 mm infarct in the right thalamus and a 10 mm remote lacunar infarct right frontal white matter are appreciated. Mild patchy chronic ischemic changes seen in the cerebral white matter are expected for age.There is no evidence of hemorrhage, mass effect, or edema. Bone windows show no osseous abnormality. IMPRESSION: Mild atrophy and patchy chronic ischemic changes in deep cerebral white matter-no change. 6 mm remote lacunar infarct right thalamus and 10 mm remote infarct in the right deep frontal white matter-no change. No intracerebral hemorrhage or other acute finding. Interpreted and Authenticated by: Liam Ambrose 12/23/20
--- NOTE | 2020-12-23 12:02 | XRay Report ---
CLINICAL INFORMATION: AMS COMPARISON: 12/19/2020 portable film two-view chest x-ray 12/03/2010 FINDINGS: Probable 6.7 cm fusiform aneurysm of the ascending thoracic aorta is seen to better advantage on today's exam. The remaining the cardiomediastinal silhouette and pulmonary vasculature are normal. COPD changes appreciated. No effusions. IMPRESSION: 6.7 cm fusiform aneurysm of the ascending thoracic aorta or, less likely, a soft tissue mass. Suggest chest CT including precontrast images Interpreted and Authenticated by: Liam Ambrose 12/23/20
[2020-12-23 12:14] LABS: ALT/SGPT 11 U/L (<40); AST/SGOT 24 U/L (<32); Albumin 4.4 gm/dL (3.2-5.2); Albumin/Globulin Ratio 1.5 (1.0-2.3); Alkaline Phosphatase 78 U/L (39-117); Bilirubin,Total 0.5 mg/dL (0.1-1.0); Blood Urea Nitrogen 13 mg/dL (8-23); Calcium 10.3 mg/dL (8.6-10.4); Carbon Dioxide 24 mmol/L (22-30); Chloride 96 mmol/L (96-108); Glomerular Filtration Rate 50; Glucose 159 mg/dL (70-105)
[2020-12-23] MEDS ORDERED: hydrALAZINE 20 MG/ML VIAL IV ONE (12:21)
--- NOTE | 2020-12-23 13:36 | Internal Med History&Physical ---
HPI History of Present Illness Patient information: Note initiated : 12/23/20 at 1:36 pm Service Date, if different from initiated Date: [] Patient: Nazanin Quarles a 70 y/o F admitted on for Headache, High Blood Pressure. Chief Complaint: Headache weakness confusion History of present illness: Ms. Quarles is a 70 year old F who was discharged 2 days ago following acute CVA on aspirin/statin. Shortly after discharge patient started experiencing throbbing headache. She became increasingly weak and this morning experienced blurred vision along with persistent frontotemporal headache. She became increasing confusion was brought into the ER for evaluation. Initial work-up was consistent with systolics over 200. Patient was started on hydralazine. With improvement in blood pressure around 170s. Subsequently hospitalist service was consulted. At the time of my evaluation patient is doing better. Able to answer most the questions. She lives with her at [facility]. She denies thunderclap headache/tearing neck pain or diaphoresis. She further denies diarrhea, dysuria but feels weak and lethargic. Reviewed CT angiogram head neck from 12/21/CT head from today. No acute process. Remote lacunar right thalamic and deep frontal white matter CVA noted. Review of systems 10 point review system was performed and is negative except for ones discussed above PFSH PFSH All Active Problems Occult blood positive stool (Acute) Acute ischemic stroke (Acute) Hyperammonemia (Acute) AMS (altered mental status) (Acute) BLACK (acute kidney injury) (Acute) CHF (congestive heart failure) (Acute) Sinus congestion (Acute) Headache (Acute) Acute ethmoidal sinusitis (Acute) Lymphadenopathy (Acute) Osteoporosis (Acute) Radiculopathy of lumbar region (Chronic) Degenerative joint disease (Chronic) Myofascial pain (Chronic) Chronic, continuous use of opioids (Chronic) Status post replacement of right shoulder joint (Chronic ~2004) History of hysterectomy (Chronic) History of colonoscopy (Chronic 10/01/20) Dizziness (Chronic) Orthostatic hypotension (Chronic) Gouty arthritis of left great toe (Chronic) Psoriatic arthritis (Chronic) Migraines (Chronic) Degeneration of cervical intervertebral disc (Chronic) Hypertriglyceridemia (Chronic) Degenerative disc disease (Chronic) COPD (chronic obstructive pulmonary disease) (Chronic) Depression (Chronic) Abdominal aortic aneurysm (Chronic) Other assisted (current) drug therapy (Chronic) Low back pain syndrome (Chronic) CAD (coronary artery disease) (Chronic) URI (upper respiratory infection) (Chronic) Hypokalemia (Chronic) Intermittent chest pain (Chronic) Hypertension (Chronic) Renal insufficiency (Chronic) Contusion (Chronic) Right wrist sprain (Chronic) Medical History Abdominal aortic aneurysm Acute ethmoidal sinusitis CAD (coronary artery disease) Contusion COPD (chronic obstructive pulmonary disease) Degeneration of cervical intervertebral disc Degenerative disc disease Degenerative joint disease Depression Dizziness Gouty arthritis of left great toe Headache Hypertension Hypertriglyceridemia Hypokalemia Intermittent chest pain Low back pain syndrome Migraines Myofascial pain Orthostatic hypotension 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 Eller History of hysterectomy History of surgery TF JOSE RAUL #1 Lt L2-3 w/o sed 09/21/17 Trigger Point Injection, left Rhomboid w/o sed 07/23/2016 TF JOSE RAUL #1 L2-3, left w/o sed 07/23/2016 TPI\'s Left Rhomboid, Left PSIS 03/24/16 TF JOSE RAUL #2 Left L2-3 w/o sed 03/24/16 TF JOSE RAUL #1 Left L2-3 w/o sed 11/28/15 TF JOSE RAUL #2, Left L2-3 w/o sed 11/12/2014 TF JOSE RAUL #1 Left L2-3 w/o sed 05/29/2014 TF JOSE RAUL #1 L2-3 w/out sed 10-30-13 Lumbar Vertebroplasty L1 w/sed 10/16/2013 TF JOSE RAUL #2 L2-3 right w/out sed. 10-19-12 TF JOSE RAUL #1 Right L2-3 w/o sed 03-29-12 TF JOSE RAUL #2 Right L2-3 w/o sed 08-27-11 TF JOSE RAUL #1 L2-3, Right w/o sed 08-11-11 Status post replacement of right shoulder joint (~2004) Family History Mother Migraines Father Leukemia Heart disease Sister CVA (cerebral vascular accident) Social History marital status: occupational status: retired occupation: works at [employer] alcohol intake frequency: does not drink substance use type: does not use MEDS/ALLERGIES Home Medications and Allergies Home Medications Medication Instructions Recorded Confirmed Type escitalopram oxalate 20 mg tablet 20 mg PO QDAY #90 tab 11/06/19 12/23/20 Rx spironolactone 25 mg tablet See Rx Instructions .ROUTE 11/06/19 12/23/20 Rx .COMPLEX #90 tablet albuterol sulfate 90 mcg/actuation See Rx Instructions INHALATION 02/02/20 12/23/20 History aerosol inhaler .COMPLEX aspirin 81 mg tablet,delayed 81 mg PO QDAY 02/02/20 12/23/20 History release atorvastatin 40 mg tablet 40 mg PO QHS #90 tab 08/05/20 12/23/20 Rx hydrocodone 10 mg-acetaminophen 1 tab PO Q6H PRN #120 tab 12/05/20 12/23/20 Rx 325 mg tablet lactulose 10 gm PO BID 14 Days ml 12/21/20 12/23/20 Rx doxycycline hyclate 100 mg PO BID 12/23/20 12/23/20 History potassium chloride 20 meq PO QAM 12/23/20 12/23/20 History Allergies Allergy/AdvReac Type Severity Reaction Status Date / Time JC Inhibitors Allergy Intermediate Respiratory Verified 12/23/20 10:49 problems, e.g. wheezing Penicillins Allergy Intermediate Rash and Verified 12/24/20 06:55 Psorasis fentanyl [From Duragesic] AdvReac Mild Nausea Verified 12/24/20 06:55 olmesartan [From Benicar] AdvReac Mild Heartburn Verified 12/24/20 06:55 EXAM Constitutional Vitals: Temp Pulse Resp BP Pulse Ox 98.2 F 90 21 158/95 96 12/23/20 10:45 12/23/20 13:17 12/23/20 13:17 12/23/20 13:10 12/23/20 13:17 Lethargic but able to open eyes to verbal commands Head normocephalic Oral cavity dry mucous membrane No ear nose discharge Eye movement symmetrical Neck supple no lymphadenopathy S1-S2 occasionally irregular Nonlabored breathing Nondistended nontender abdomen Lower extremity no cyanosis clubbing or joint swelling Dry skin no suspicious lesion Psych anxious but alert cooperative Neuro respond to commands, subtle weakness right side DATA Data Completed and Pending Labs: Labs from last 24 hours 12/23/20 12/23/20 12/23/20 11:11 11:11 11:11 WBC RBC Hgb Hct MCV MCH MCHC RDW Plt Count MPV Neut % (Auto) Lymph % (Auto) [place] % (Auto) Eos % (Auto) Baso % (Auto) Lymph # (Auto) [place] # (Auto) Eos # (Auto) Baso # (Auto) Absolute Neutrophils VBG Lactic Acid 2.2 H Sodium Potassium Chloride Carbon Dioxide Anion Gap BUN Creatinine GFR Calculation Glucose Calcium Total Bilirubin AST ALT Alkaline Phosphatase Ammonia 13 Troponin T < 0.01 Total Protein Albumin Globulin Albumin/Globulin Ratio 12/23/20 12/23/20 11:11 11:11 WBC 9.0 RBC 4.45 Hgb 12.8 Hct 37.5 MCV 84.3 MCH 28.8 MCHC 34.1 RDW 13.4 Plt Count 328 MPV 9.1 Neut % (Auto) 77.9 Lymph % (Auto) 16.8 [place] % (Auto) 3.9 Eos % (Auto) 0.7 Baso % (Auto) 0.7 Lymph # (Auto) 1.51 [place] # (Auto) 0.35 Eos # (Auto) 0.06 Baso # (Auto) 0.06 Absolute Neutrophils 7.03 VBG Lactic Acid Sodium 135 Potassium 3.9 Chloride 96 Carbon Dioxide 24 Anion Gap 15.0 BUN 13 Creatinine 1.1 GFR Calculation 50 Glucose 159 H Calcium 10.3 Total Bilirubin 0.5 AST 24 ALT 11 Alkaline Phosphatase 78 Ammonia Troponin T Total Protein 7.4 Albumin 4.4 Globulin 3.0 Albumin/Globulin Ratio 1.5 A/P Narrative A/P Narrative: * Hypertensive crisis with headache/encephalopathy-start nicardipine drip/PCU monitoring. Start spironolactone/metoprolol * Recent ischemic CVA-MRI brain today to rule out acute CVA. Echocardiogram. Continue full dose aspirin/statin * Anxiety disorder continue escitalopram * Degenerative disease continue hydrocodone * Full code * Prophylaxis Heparin Plan * Inpatient admission * MRI/echo * Nicardipine drip/metoprolol * PT OT nutrition support * Discharge planning Time Spent With Patient Time: Total time spent is greater than 50% in coordination of care (as documented) at patient's floor/unit and/or counseling patient: QUALITY Stroke Symptom Onset Unknown: Yes
--- NOTE | 2020-12-23 13:53 | Emergency Department Note ---
Neuro HPI General Chief Complaint: Stroke Symptoms Stated Complaint: headache, high blood pressure Time Seen by Provider: 12/23/20 10:50 Source: patient, family, RN notes reviewed, old records reviewed and other (Discharge summary from 12/21/2020) Mode of arrival: ambulatory Limitations: no limitations History of Present Illness HPI Narrative: Narrative: 70-year-old female brought in by complaining of altered mental. Patient complains of severe headache and difficulty managing hypertension. Patient has positive nausea no vomiting no stiff neck no chest pain positive shortness of breath positive weakness. Patient was discharged on 12/21/2020 for similar presentation. Onset (ago): day(s) Timing confirmed by: spouse Location: speech, ataxia and altered Severity: moderate Quality: weak and constant Improves with: none Worsens with: time Context: gradual onset and change in medication On Anticoagulants: No Associated symptoms: Reports confusion, headaches, loss of appetite, malaise, nausea/vomiting, shortness of breath and weakness; Denies chest pain, cough, fever/chills, vertigo, seizures and syncope Treatments Prior to Arrival: none Related Data Home Medications Medication Instructions Recorded Confirmed albuterol sulfate 90 mcg/actuation See Rx Instructions INHALATION 02/02/20 12/23/20 aerosol inhaler .COMPLEX aspirin 81 mg tablet,delayed 81 mg PO QDAY 02/02/20 12/23/20 release doxycycline hyclate 100 mg PO BID 12/23/20 12/23/20 potassium chloride 20 meq PO QAM 12/23/20 12/23/20 Previous Rx's Medication Instructions Recorded escitalopram oxalate 20 mg tablet 20 mg PO QDAY #90 tab 11/06/19 spironolactone 25 mg tablet See Rx Instructions .ROUTE 11/06/19 .COMPLEX #90 tablet atorvastatin 40 mg tablet 40 mg PO QHS #90 tab 08/05/20 hydrocodone 10 mg-acetaminophen 1 tab PO Q6H PRN #120 tab 12/05/20 325 mg tablet lactulose 10 gm PO BID 14 Days ml 12/21/20 Allergies Allergy/AdvReac Type Severity Reaction Status Date / Time Penicillins Allergy Severe Rash and Verified 12/23/20 10:49 Psorasis JC Inhibitors Allergy Intermediate Respiratory Verified 12/23/20 10:49 problems, e.g. wheezing olmesartan [From Benicar] Allergy Intermediate Heartburn Verified 12/23/20 10:49 Fentanyl Patch Allergy Intermediate Nausea and Uncoded 02/28/20 09:35 vomiting Review of Systems ROS ROS Narrative: Narrative: All systems ED: reviewed and negative except as stated. [facility] Narrative Patient History Narrative: Narrative: Medical/Surgical/Family History All Active Problems Occult blood positive stool (Acute) Acute ischemic stroke (Acute) Hyperammonemia (Acute) AMS (altered mental status) (Acute) BLACK (acute kidney injury) (Acute) CHF (congestive heart failure) (Acute) Sinus congestion (Acute) Headache (Acute) Acute ethmoidal sinusitis (Acute) Lymphadenopathy (Acute) Osteoporosis (Acute) Radiculopathy of lumbar region (Chronic) Degenerative joint disease (Chronic) Myofascial pain (Chronic) Chronic, continuous use of opioids (Chronic) Status post replacement of right shoulder joint (Chronic ~2004) History of hysterectomy (Chronic) History of colonoscopy (Chronic 10/01/20) Dizziness (Chronic) Orthostatic hypotension (Chronic) Gouty arthritis of left great toe (Chronic) Psoriatic arthritis (Chronic) Migraines (Chronic) Degeneration of cervical intervertebral disc (Chronic) Hypertriglyceridemia (Chronic) Degenerative disc disease (Chronic) COPD (chronic obstructive pulmonary disease) (Chronic) Depression (Chronic) Abdominal aortic aneurysm (Chronic) Other custodial (current) drug therapy (Chronic) Low back pain syndrome (Chronic) CAD (coronary artery disease) (Chronic) URI (upper respiratory infection) (Chronic) Hypokalemia (Chronic) Intermittent chest pain (Chronic) Hypertension (Chronic) Renal insufficiency (Chronic) Contusion (Chronic) Right wrist sprain (Chronic) Medical History Abdominal aortic aneurysm Acute ethmoidal sinusitis CAD (coronary artery disease) Contusion COPD (chronic obstructive pulmonary disease) Degeneration of cervical intervertebral disc Degenerative disc disease Degenerative joint disease Depression Dizziness Gouty arthritis of left great toe Headache Hypertension Hypertriglyceridemia Hypokalemia Intermittent chest pain Low back pain syndrome Migraines Myofascial pain Orthostatic hypotension 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 Eller History of hysterectomy History of surgery TF JOSE RAUL #1 Lt L2-3 w/o sed 09/21/17 Trigger Point Injection, left Rhomboid w/o sed 07/23/2016 TF JOSE RAUL #1 L2-3, left w/o sed 07/23/2016 TPI\'s Left Rhomboid, Left PSIS 03/24/16 TF JOSE RAUL #2 Left L2-3 w/o sed 03/24/16 TF JOSE RAUL #1 Left L2-3 w/o sed 11/28/15 TF JOSE RAUL #2, Left L2-3 w/o sed 11/12/2014 TF JOSE RAUL #1 Left L2-3 w/o sed 05/29/2014 TF JOSE RAUL #1 L2-3 w/out sed 10-30-13 Lumbar Vertebroplasty L1 w/sed 10/16/2013 TF JOSE RAUL #2 L2-3 right w/out sed. 10-19-12 TF JOSE RAUL #1 Right L2-3 w/o sed 03-29-12 TF JOSE RAUL #2 Right L2-3 w/o sed 08-27-11 TF JOSE RAUL #1 L2-3, Right w/o sed 08-11-11 Status post replacement of right shoulder joint (~2004) Family History Mother Migraines Father Leukemia Heart disease Sister CVA (cerebral vascular accident) Social History Smoking Status: Current every day smoker Alcohol Intake Frequency: does not drink Substance Use: does not use Exam Narrative Narrative: Narrative: General Limitations: no limitations General appearance: Present alert, anxious and in distress Head Head: Present atraumatic and normocephalic Eye Eye: Present normal appearance, PERRL and EOMI ENT ENT: Present normal exam and mucous membranes dry Neck Neck: Present normal inspection and full ROM Chest Chest: Present normal inspection; Absent tenderness Respiratory Respiratory: Present normal lung sounds bilaterally; Absent respiratory distress Cardiovascular Cardiovascular: Present regular rate, normal rhythm and systolic murmur Adbominal Abdominal: Present soft; Absent distention, tenderness, guarding and rebound Extremities Extremities: Present normal inspection and full ROM; Absent tenderness, pedal edema and pretibial edema Back Back: Present normal inspection; Absent CVA tenderness (R) and CVA tenderness (L) Neurological Neurological: Present alert, oriented X3, CN II-XII intact, normal gait and reflexes normal; Absent motor sensory deficit Psychiatric Psychiatric: Present depressed and anxious Skin Skin: Present warm (WNL); Absent rash Course Vital Signs Vital signs: Vital Signs Temperature 98.2 F 12/23/20 10:45 Pulse Rate 86 12/23/20 10:45 Respiratory Rate 18 12/23/20 10:45 Blood Pressure 213/165 12/23/20 10:45 Pulse Oximetry (%) 99 12/23/20 10:45 Temperature 98.2 F 12/23/20 10:45 Pulse Rate 90 12/23/20 13:17 Respiratory Rate 21 12/23/20 13:17 Blood Pressure 158/95 12/23/20 13:10 Pulse Oximetry (%) 96 12/23/20 13:17 MDM MDM Narrative Medical decision making narrative: Narrative: 70-year-old female brought in for altered mental status confusion headache and hypertension. Patient had similar presentation last week and was discharged on 12/21/2020. Patient complains of headache confusion is worried she is having another stroke. Head CT without contrast is without acute changes CBC is within normal limits and the CMP is essentially unchanged. Patient received IV fluids IV morphine and hydralazine for hypertension. Discussed patient Dr. Kam barboza who graciously agreed to admit patient for observation and blood pressure management. Diagnosis 1 is hypertensive emergency 2 is altered mental status 3 is headache Lab Data Lab results reviewed: Yes I reviewed the patient's lab results. Result diagrams: 12/23/20 11:11 12/23/20 11:11 Labs: Lab Results 12/23/20 12/23/20 12/23/20 Range/Units 11:11 11:11 11:11 WBC 9.0 (4.5-11.0) K/mcL RBC 4.45 (4.00-5.20) M/mcL Hgb 12.8 (12.0-15.0) g/dL Hct 37.5 (36.0-48.0) % MCV 84.3 (80.0-100.0) fL MCH 28.8 (26.0-34.0) pg MCHC 34.1 (31.0-36.0) g/dL RDW 13.4 (11.5-14.5) % Plt Count 328 (140-440) K/mcL MPV 9.1 (7.4-10.4) fL Neut % (Auto) 77.9 (38.0-78.0) % Lymph % (Auto) 16.8 (15.0-49.0) % [place] % (Auto) 3.9 (1.0-12.0) % Eos % (Auto) 0.7 (0.0-7.0) % Baso % (Auto) 0.7 (0.0-2.0) % Lymph # (Auto) 1.51 (1.50-4.80) K/mcL [place] # (Auto) 0.35 (0.10-0.90) K/mcL Eos # (Auto) 0.06 (0.00-0.70) K/mcL Baso # (Auto) 0.06 (0.00-0.20) K/mcL Absolute Neutrophils 7.03 (1.80-8.00) K/mcL VBG Lactic Acid 2.2 H (0.5-2.0) mmol/L Sodium 135 (133-145) mmol/L Potassium 3.9 (3.3-5.1) mmol/L Chloride 96 (96-108) mmol/L Carbon Dioxide 24 (22-30) mmol/L Anion Gap 15.0 (8.0-16.0) BUN 13 (8-23) mg/dL Creatinine 1.1 (0.6-1.1) mg/dL GFR Calculation 50 Glucose 159 H (70-105) mg/dL Calcium 10.3 (8.6-10.4) mg/dL Total Bilirubin 0.5 (0.1-1.0) mg/dL AST 24 (<32) U/L ALT 11 (<40) U/L Alkaline Phosphatase 78 (39-117) U/L Ammonia (11-51) umol/L Troponin T (<0.03) ng/mL Total Protein 7.4 (5.9-8.4) gm/dL Albumin 4.4 (3.2-5.2) gm/dL Globulin 3.0 (2.2-3.7) gm/dL Albumin/Globulin Ratio 1.5 (1.0-2.3) 12/23/20 12/23/20 Range/Units 11:11 11:11 WBC (4.5-11.0) K/mcL RBC (4.00-5.20) M/mcL Hgb (12.0-15.0) g/dL Hct (36.0-48.0) % MCV (80.0-100.0) fL MCH (26.0-34.0) pg MCHC (31.0-36.0) g/dL RDW (11.5-14.5) % Plt Count (140-440) K/mcL MPV (7.4-10.4) fL Neut % (Auto) (38.0-78.0) % Lymph % (Auto) (15.0-49.0) % [place] % (Auto) (1.0-12.0) % Eos % (Auto) (0.0-7.0) % Baso % (Auto) (0.0-2.0) % Lymph # (Auto) (1.50-4.80) K/mcL [place] # (Auto) (0.10-0.90) K/mcL Eos # (Auto) (0.00-0.70) K/mcL Baso # (Auto) (0.00-0.20) K/mcL Absolute Neutrophils (1.80-8.00) K/mcL VBG Lactic Acid (0.5-2.0) mmol/L Sodium (133-145) mmol/L Potassium (3.3-5.1) mmol/L Chloride (96-108) mmol/L Carbon Dioxide (22-30) mmol/L Anion Gap (8.0-16.0) BUN (8-23) mg/dL Creatinine (0.6-1.1) mg/dL GFR Calculation Glucose (70-105) mg/dL Calcium (8.6-10.4) mg/dL Total Bilirubin (0.1-1.0) mg/dL AST (<32) U/L ALT (<40) U/L Alkaline Phosphatase (39-117) U/L Ammonia 13 (11-51) umol/L Troponin T < 0.01 (<0.03) ng/mL Total Protein (5.9-8.4) gm/dL Albumin (3.2-5.2) gm/dL Globulin (2.2-3.7) gm/dL Albumin/Globulin Ratio (1.0-2.3) Radiology Data Radiology results reviewed: Yes I reviewed the patient's radiology results. EKG Data EKG #1: EKG attestation: Yes I reviewed and interpreted this EKG. EKG shows normal: sinus rhythm Rate: normal (76) Rhythm: NSR [place]/QRS: normal Ectopy: PVC Interpretation: nonspecific ST-T wave changes Pulse Oximetry Data Pulse Ox %: 96 Interpretation: 96% on room air within normal limits. Discharge Plan Patient/Caregiver Discharge Instructions Pt seen by NUCLEAR SUPERVISING OPERATOR/PA only: No Clinical Impression: Headache Qualifiers: Headache type: unspecified Headache chronicity pattern: unspecified pattern Intractability: not intractable Qualified Code(s): R51.9 - Headache, unspecified Hypertension Qualifiers: Hypertension type: unspecified Qualified Code(s): I10 - Essential (primary) hypertension AMS (altered mental status) Qualifiers: Altered mental status type: disorientation Qualified Code(s): R41.0 - Disorientation, unspecified Patient Disposition: Xfer As Inpt (TS) Condition: Fair Follow up with: Ju Silva ARNP [Primary Care Provider] - Prescriptions: No Action escitalopram oxalate [Lexapro] 20 mg tablet 20 mg PO QDAY Qty: 90 RF: 4 spironolactone 25 mg tablet See Rx Instructions .ROUTE .COMPLEX Qty: 90 RF: 4 atorvastatin 40 mg tablet 40 mg PO QHS Qty: 90 RF: 1 hydrocodone-acetaminophen 10-325 mg tablet 1 tab PO Q6H PRN (Reason: Pain) Qty: 120 RF: 0 albuterol sulfate 90 mcg/actuation HFA aerosol inhaler See Rx Instructions INHALATION .COMPLEX RF: 0 aspirin 81 mg tablet,delayed release (DR/EC) 81 mg PO QDAY RF: 0 lactulose 20 gram/30 mL Solution 10 gm PO BID 14 Days RF: 1 doxycycline hyclate 100 mg capsule 100 mg PO BID RF: 0 potassium chloride 10 mEq tablet extended release 20 meq PO QAM RF: 0
[2020-12-23] MEDS ORDERED: ACETAMINOPHEN 650 MG/65 ML BAG IV PRN (15:15)
[2020-12-23] MEDS ORDERED: niCARdipine 25 MG in 0.9 % SODIUM CHLORIDE 240 ML IV PRN (15:15)
[2020-12-23] MEDS ORDERED: MAGNESIUM SULFATE 2 GM/50 ML BAG IV PRN (15:15)
[2020-12-23] MEDS ORDERED: ONDANSETRON 4 MG/2 ML VIAL IV PRN (15:15)
[2020-12-23] MEDS ORDERED: ALBUTEROL SULFATE 200 PUFF INHALER INH PRN (15:15)
[2020-12-23] MEDS ORDERED: ONDANSETRON 4 MG ODT TABLET SL PRN (15:15)
[2020-12-23] MEDS ORDERED: ACETAMINOPHEN 325 MG TABLET PO PRN (15:15)
[2020-12-23] MEDS ORDERED: POLYETHYLENE GLYCOL 3350 17 GM PACKET PO PRN (15:15)
[2020-12-23] MEDS ORDERED: BISACODYL 10 MG SUPP.RECT PR PRN (15:15)
[2020-12-23] MEDS ORDERED: hydrALAZINE 20 MG/ML VIAL IV PRN (15:15)
[2020-12-23] MEDS ORDERED: NEUTRA PHOS 1 PACKET PO PRN (15:15)
[2020-12-23] MEDS ORDERED: guaiFENesin/CODEINE 10 ML UDC PO PRN (15:15)
[2020-12-23] MEDS ORDERED: POTASSIUM CHLORIDE 40 MEQ in DEXTROSE 5% IN WATER 500 ML IV PRN (15:15)
[2020-12-23] MEDS: THIAMINE 100 MG in 0.9 % SODIUM CHLORIDE 50 ML IV SCH (15:59)
[2020-12-23] MEDS: METOPROLOL TARTRATE 25 MG TABLET PO SCH ×2 (15:59→20:20)
[2020-12-23] MEDS: HYDROcodone/APAP 10/325MG TABLET PO PRN ×2 (16:04→21:42)
[2020-12-23] MEDS: 0.9 % SODIUM CHLORIDE 10 ML SYRINGE IV SCH ×2 (16:08→20:21)
--- NOTE | 2020-12-23 18:25 | Magnetic Resonance Report ---
CLINICAL INFORMATION: Confusion and headache. Hypertensive emergency COMPARISON: Head CT 12/23/2020 TECHNIQUE:Sagittal T1 FLAIR, axial T1 FLAIR, T2 FLAIR propeller, T2 propeller, gradient, diffusion, ADC and coronal T2 weighted images were acquired. FINDINGS: The ventricles, sulci, fissures and cisterns are symmetrically enlarged compatible with mild age-related. There are no extra axial fluid likely or masses appreciated. Mild chronic ischemic changes in the deep periventricular white matter typical for age. Two remote lacunar infarcts in the deep right frontal white matter are both less than 3 mm. There are no regions of restricted diffusion to suggest acute infarct. No acute hemorrhage. There are, however, scattered regions of magnetic susceptibility in subcortical white matter of the occipital and superior parietal lobe which typically indicating old hemorrhage. Signal void in intracerebral arteries is unremarkable. Opacification of the lateral recess of the right sphenoid sinus appreciated. There is also moderate opacification right posterior ethmoid air cell. IMPRESSION: 1. No acute disease 2. Scattered (8-9) small foci of magnetic susceptibility artifact in the subcortical white matter of the posterior parietal-occipital region. This represents hemosiderin indicating remote hemorrhage. Precise etiology unknown. 3. Severe right sphenoid and posterior right ethmoid sinusitis. Interpreted and Authenticated by: Liam Ambrose 12/23/20
[2020-12-23] MEDS: LACTULOSE 20 GM/30 ML ORAL.SOL PO SCH (20:20)
[2020-12-23] MEDS: DOCUSATE SODIUM 100 MG CAPSULE PO SCH (20:20)
[2020-12-23] MEDS: CYANOCOBALAMIN (VITAMIN B-12) 500 MCG TABLET PO SCH (20:20)
[2020-12-23] MEDS: HEPARIN 5,000 UNIT/ML VIAL SQ SCH (20:20)
[2020-12-23] MEDS ORDERED: SENNOSIDES/DOCUSATE SODIUM 1 TAB TABLET PO SCH (21:00)
[2020-12-23] MEDS ORDERED: MELATONIN 3 MG TABLET PO PRN (21:00)
[2020-12-23] MEDS ORDERED: ATORVASTATIN 40 MG TABLET PO SCH (21:00)
[2020-12-24] MEDS: HYDROcodone/APAP 10/325MG TABLET PO PRN ×2 (04:55→13:02)
[2020-12-24] MEDS: 0.9 % SODIUM CHLORIDE 10 ML SYRINGE IV SCH ×3 (04:56→20:44)
[2020-12-24 07:10] LABS: Basophils # (Auto) 0.08 K/mcL (0.00-0.20); Basophils % (Auto) 0.8 % (0.0-2.0); Eosinophils # (Auto) 0.34 K/mcL (0.00-0.70); Eosinophils % (Auto) 3.6 % (0.0-7.0); Hematocrit 37.7 % (36.0-48.0); Hemoglobin 12.3 g/dL (12.0-15.0); Lymphocytes # (Auto) 3.45 K/mcL (1.50-4.80); Lymphocytes % (Auto) 36.3 % (15.0-49.0); Mean Cell Volume 86.1 fL (80.0-100.0); Mean Corpuscular HGB Conc 32.6 g/dL (31.0-36.0); Monocytes # (Auto) 0.61 K/mcL (0.10-0.90); Monocytes % (Auto) 6.4 % (1.0-12.0); Neutrophils % (Auto) 52.9 % (38.0-78.0); Platelet Count 323 K/mcL (140-440); RBC 4.38 M/mcL (4.00-5.20); Red Cell Distribution Width 13.8 % (11.5-14.5); WBC 9.5 K/mcL (4.5-11.0)
[2020-12-24] MEDS: METOPROLOL TARTRATE 25 MG TABLET PO SCH ×2 (07:38→20:39)
[2020-12-24] MEDS: HEPARIN 5,000 UNIT/ML VIAL SQ SCH ×2 (07:38→20:43)
[2020-12-24] MEDS: THIAMINE 100 MG in 0.9 % SODIUM CHLORIDE 50 ML IV SCH (07:38)
[2020-12-24] MEDS: DOCUSATE SODIUM 100 MG CAPSULE PO SCH ×2 (07:38→20:38)
[2020-12-24] MEDS: CYANOCOBALAMIN (VITAMIN B-12) 500 MCG TABLET PO SCH ×2 (07:38→20:37)
[2020-12-24] MEDS: LACTULOSE 20 GM/30 ML ORAL.SOL PO SCH ×2 (07:39→20:37)
[2020-12-24] MEDS ORDERED: POTASSIUM CHLORIDE 20 MEQ TABLET PO SCH (08:00)
[2020-12-24 08:02] LABS: ALT/SGPT 19 U/L (<40); AST/SGOT 37 U/L (<32); Albumin 3.9 gm/dL (3.2-5.2); Albumin/Globulin Ratio 1.4 (1.0-2.3); Alkaline Phosphatase 67 U/L (39-117); Bilirubin,Direct < 0.2 mg/dL (0-0.3); Bilirubin,Total 0.5 mg/dL (0.1-1.0); Blood Urea Nitrogen 20 mg/dL (8-23); Calcium 9.9 mg/dL (8.6-10.4); Carbon Dioxide 25 mmol/L (22-30); Chloride 98 mmol/L (96-108); Globulin 2.8 gm/dL (2.2-3.7); Glomerular Filtration Rate 50; Glucose 94 mg/dL (70-105); Lactate Dehydrogenase 281 U/L (135-225); Phosphorous 3.3 mg/dL (2.5-4.5); Triglycerides 136 mg/dL (<150); Uric Acid 5.9 mg/dL (2.5-8.0)
[2020-12-24] MEDS ORDERED: ASPIRIN 325 MG ENTERIC COATED TABLET PO SCH (09:00)
[2020-12-24] MEDS ORDERED: SPIRONOLACTONE 25 MG TABLET PO SCH (09:00)
[2020-12-24] MEDS ORDERED: MULTIVIT,THER IRON,CA,FA & MIN 1 TABLET PO SCH (09:00)
[2020-12-24] MEDS ORDERED: ESCITALOPRAM 20 MG TABLET PO SCH (09:00)
--- NOTE | 2020-12-24 12:29 | Internal Med Progress Note ---
SUBJECTIVE Subjective Patient information: Note initiated : 12/24/20 at 12:26 pm Service Date, if different from initiated Date: [] Patient: Nazanin Quarles a 70 y/o F admitted on 12/23/20 for Headache, High Blood Pressure. Chief Complaint: [] Interval history: Ms. Quarles is a 70 year old F who was discharged 2 days ago following acute CVA on aspirin/statin. Shortly after discharge patient started experiencing throbbing headache. She became increasingly weak and this morning experienced blurred vision along with persistent frontotemporal headache. She became increasing confusion was brought into the ER for evaluation. Initial work-up was consistent with systolics over 200. Patient was started on hydralazine. With improvement in blood pressure around 170s. Subsequently hospitalist service was consulted. At the time of my evaluation patient is doing better. Able to answer most the questions. She lives with her at [place]. She denies thunderclap headache/tearing neck pain or diaphoresis. She further denies diarrhea, dysuria but feels weak and lethargic. Reviewed CT angiogram head neck from 12/21/CT head from today. No acute process. Remote lacunar right thalamic and deep frontal white matter CVA noted. 12/24-dramatic response to initiation of metoprolol with blood pressures around 120. Headache intermittent MRI shows severe sphenoid and ethmoidal sinusitis. Start antibiotic coverage. Overnight fever chills. Echocardiogram reviewed from 11/3054% EF with pulmonary pressure 35-40 Constitutional Vitals: Vital Signs Temp Pulse Resp BP Pulse Ox 97.9 F 95 H 18 124/89 91 12/24/20 08:00 12/23/20 14:51 12/24/20 08:13 12/24/20 08:09 12/24/20 08:13 Period Temp Pulse Resp BP Sys/Benson Pulse Ox Last 24 Hr 97.1 F-99.3 F 73-96 8-29 109-188/64-131 91-98 Intake and Output 12/23/20 12/24/20 12/24/20 21:59 05:59 13:59 Intake Total 411 100 251 Output Total 450 125 Balance -39 -25 251 Weight 45.813 kg 45.813 kg Patient Weight 12/25/20 05:59 Weight 45.813 kg alert and oriented Nonlabored breathing No anxiety Nondistended abdomen Intake & Output: Intake & Output 12/23/20 12/24/20 12/24/20 21:59 05:59 13:59 Intake Total 411 100 251 Output Total 450 125 Balance -39 -25 251 Weight 45.813 kg 45.813 kg Intake: IV 51 51 Vitamin B1 100 mg In Sodium 51 51 Chloride 0.9% 50 ml @ 50 mls/hr IV DAILY [facility] Rx#:[id number] Oral 360 100 200 Output: Void Amount 450 125 Other: Meal SNACK Breakfast Percent of Meal Consumed 50% 75% Urine Appearance Clear Urine Color Light Laura Urine Odor Strong OBJ DATA Labs CBC & Chem 7: 12/24/20 05:17 12/24/20 05:17 Labs: Abnormal Lab Results 12/24/20 12/23/20 12/23/20 05:17 11:11 11:11 VBG Lactic Acid 2.2 H Glucose 159 H AST 37 H Lactate Dehydrogenase 281 H Meds: Medications Acetaminophen (Acetaminophen 325 Mg Tablet) 650 mg PO Q4-6HP PRN; Protocol PRN Reason: Per Pain Protocol/Fever > 101 Last Admin: 12/24/20 07:37 Dose: 650 mg Documented by: Hydrocodone Bitart/Acetaminophen (Hydrocodone/Apap 10/325mg Tablet) 1 tab PO Q6HP PRN; Protocol PRN Reason: Pain Last Admin: 12/24/20 04:55 Dose: 1 tab Documented by: Albuterol Sulfate (Albuterol Sulfate 200 Puff Inhaler) 1 puff INH Q6HP PRN PRN Reason: Shortness Of Breath Aspirin (Aspirin 325 Mg Enteric Coated Tablet) 325 mg PO DAILY [facility] Last Admin: 12/24/20 07:38 Dose: 325 mg Documented by: Atorvastatin Calcium (Atorvastatin 40 Mg Tablet) 40 mg PO QHS [facility] Last Admin: 12/23/20 20:20 Dose: 40 mg Documented by: Bisacodyl (Bisacodyl 10 Mg Supp.Rect) 10 mg KS Q2-3DAYS PRN PRN Reason: Constipation Cyanocobalamin (Cyanocobalamin (Vitamin B-12) 500 Mcg Tablet) 1,000 mcg PO BID [facility] Stop: 12/28/20 09:01 Last Admin: 12/24/20 07:38 Dose: 1,000 mcg Documented by: Docusate Sodium (Docusate Sodium 100 Mg Capsule) 100 mg PO BID [facility] Last Admin: 12/24/20 07:38 Dose: 100 mg Documented by: Escitalopram Oxalate (Escitalopram 20 Mg Tablet) 20 mg PO QDAY [facility] Last Admin: 12/24/20 08:08 Dose: 20 mg Documented by: Guaifenesin/Codeine Phosphate (Guaifenesin/Codeine 10 Ml Udc) 10 ml PO Q4HP PRN PRN Reason: Cough Heparin Sodium (Porcine) (Heparin 5,000 Unit/Ml Vial) 5,000 unit SQ Q12 [facility] Last Admin: 12/24/20 07:38 Dose: 5,000 unit Documented by: Hydralazine HCl (Hydralazine 20 Mg/Ml Vial) 10 mg IV Q4-6HP PRN PRN Reason: Hypertension Last Admin: 12/23/20 17:15 Dose: 10 mg Documented by: Potassium Chloride 40 meq/ (Dextrose) 520 mls @ 130 mls/hr IV UD PRN PRN Reason: K+ = or < 3.5 Magnesium Sulfate (Magnesium Sulfate) 2 gm in 50 mls @ 50 mls/hr IV UD PRN PRN Reason: MG = or < 1.7 Acetaminophen (Ofirmev) 650 mg in 65 mls @ 130 mls/hr IV Q6HP PRN; Protocol PRN Reason: Per Pain Protocol/Fever > 101 Thiamine HCl 100 mg/ Sodium (Chloride) 51 mls @ 50 mls/hr IV DAILY [facility] Stop: 12/25/20 10:02 Last Infusion: 12/24/20 10:51 Dose: Infused Documented by: Nicardipine HCl 25 mg/ Sodium (Chloride) 250 mls @ 50 mls/hr IV Q5HP PRN; Protocol PRN Reason: PER PROTOCOL Iron Carb/Multivit/[place]/Folic Acid (Multivit,Ther Iron,Ca,Fa & Min 1 Tablet) 1 tab PO DAILY [facility] Last Admin: 12/24/20 07:38 Dose: 1 tab Documented by: Lactulose (Lactulose 20 Gm/30 Ml Oral.Sravanthi) 10 gm PO BID [facility] Last Admin: 12/24/20 07:39 Dose: 10 gm Documented by: Melatonin (Melatonin 3 Mg Tablet) 3 mg PO HSP PRN PRN Reason: Insomnia Metoprolol Tartrate (Metoprolol Tartrate 25 Mg Tablet) 12.5 mg PO BID [facility] Last Admin: 12/24/20 07:38 Dose: 12.5 mg Documented by: Ondansetron HCl (Ondansetron 4 Mg Odt Tablet) 4 mg SL Q4-6HP PRN; Protocol PRN Reason: Nausea And Vomiting Ondansetron HCl (Ondansetron 4 Mg/2 Ml Vial) 4 mg IV Q4-6HP PRN; Protocol PRN Reason: Nausea And Vomiting Polyethylene Glycol (Polyethylene Glycol 3350 17 Gm Packet) 17 gm PO DAILYP PRN PRN Reason: Constipation Potassium Chloride (Potassium Chloride 20 Meq Tablet) 20 meq PO QAMCC [facility] Last Admin: 12/24/20 07:38 Dose: 20 meq Documented by: Potassium/Phosphorus/Sodium (Neutra Phos 1 Packet) 2 packet PO DAILY PRN PRN Reason: PHOS <2.5 Senna/Docusate Sodium (Sennosides/Docusate Sodium 1 Tab Tablet) 1 tab PO HS [facility] Last Admin: 12/23/20 20:20 Dose: 1 tab Documented by: Sodium Chloride (0.9 % Sodium Chloride 10 Ml Syringe) 10 ml IV Q8 [facility] Last Admin: 12/24/20 04:56 Dose: 10 ml Documented by: Spironolactone (Spironolactone 25 Mg Tablet) 25 mg PO DAILY [facility] Last Admin: 12/24/20 07:38 Dose: 25 mg Documented by: A/P Narrative A/P Narrative: * Hypertensive crisis with headache/encephalopathy-clinical resolution noted. Started on metoprolol. 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 Echocardiogram EF 45 to 50%. Continue full dose aspirin/statin * Anxiety disorder continue escitalopram * Degenerative disease continue hydrocodone * Full code * Prophylaxis Heparin Plan * Continue beta-raji * Transition to medical floor * PT OT nutrition support * Discharge likely in 24 hours Time Spent With Patient Time: Total time spent is greater than 50% in coordination of care (as documented) at patient's floor/unit and/or counseling patient: QUALITY Stroke Symptom Onset Unknown: Yes
[2020-12-24] MEDS ORDERED: hydrALAZINE 20 MG/ML VIAL IV PRN (12:36)
[2020-12-24] MEDS ORDERED: NEUTRA PHOS 1 PACKET PO PRN (12:36)
[2020-12-24] MEDS ORDERED: ACETAMINOPHEN 650 MG/65 ML BAG IV PRN (12:36)
[2020-12-24] MEDS ORDERED: ACETAMINOPHEN 325 MG TABLET PO PRN (12:36)
[2020-12-24] MEDS ORDERED: MELATONIN 3 MG TABLET PO PRN (12:36)
[2020-12-24] MEDS ORDERED: ONDANSETRON 4 MG/2 ML VIAL IV PRN (12:36)
[2020-12-24] MEDS ORDERED: POLYETHYLENE GLYCOL 3350 17 GM PACKET PO PRN (12:36)
[2020-12-24] MEDS ORDERED: MAGNESIUM SULFATE 2 GM/50 ML BAG IV PRN (12:36)
[2020-12-24] MEDS ORDERED: BISACODYL 10 MG SUPP.RECT PR PRN (12:36)
[2020-12-24] MEDS ORDERED: ALBUTEROL SULFATE 200 PUFF INHALER INH PRN (12:36)
[2020-12-24] MEDS ORDERED: POTASSIUM CHLORIDE 40 MEQ in DEXTROSE 5% IN WATER 500 ML IV PRN (12:36)
[2020-12-24] MEDS ORDERED: guaiFENesin/CODEINE 10 ML UDC PO PRN (12:36)
[2020-12-24] MEDS ORDERED: ONDANSETRON 4 MG ODT TABLET SL PRN (12:36)
[2020-12-24] MEDS ORDERED: HYDROcodone/APAP 10/325MG TABLET PO ONE (13:01)
[2020-12-24] MEDS ORDERED: ONDANSETRON 4 MG/2 ML VIAL ONE (13:09)
[2020-12-24] MEDS: BUTALB/ACETAMINOPHEN/CAFFEINE 1 TABLET PO PRN (13:55)
[2020-12-24] MEDS ORDERED: PROMETHAZINE 25 MG/ML VIAL IV PRN (14:07)
[2020-12-24] MEDS ORDERED: PROMETHAZINE 25 MG/ML VIAL ONE (14:13)
[2020-12-24] MEDS: ATORVASTATIN 40 MG TABLET PO SCH (20:38)
[2020-12-24] MEDS: SENNOSIDES/DOCUSATE SODIUM 1 TAB TABLET PO SCH (20:43)
[2020-12-25] MEDS: HYDROcodone/APAP 10/325MG TABLET PO PRN (01:20)
[2020-12-25] MEDS: BUTALB/ACETAMINOPHEN/CAFFEINE 1 TABLET PO PRN ×2 (02:49→15:48)
[2020-12-25 07:11] LABS: Basophils # (Auto) 0.08 K/mcL (0.00-0.20); Basophils % (Auto) 0.7 % (0.0-2.0); Eosinophils # (Auto) 0.27 K/mcL (0.00-0.70); Eosinophils % (Auto) 2.5 % (0.0-7.0); Hematocrit 37.1 % (36.0-48.0); Hemoglobin 12.1 g/dL (12.0-15.0); Lymphocytes # (Auto) 3.16 K/mcL (1.50-4.80); Lymphocytes % (Auto) 29.3 % (15.0-49.0); Mean Cell Volume 86.5 fL (80.0-100.0); Mean Corpuscular HGB Conc 32.6 g/dL (31.0-36.0); Monocytes # (Auto) 0.66 K/mcL (0.10-0.90); Monocytes % (Auto) 6.1 % (1.0-12.0); Neutrophils % (Auto) 61.4 % (38.0-78.0); Platelet Count 348 K/mcL (140-440); RBC 4.29 M/mcL (4.00-5.20); Red Cell Distribution Width 14.1 % (11.5-14.5); WBC 10.8 K/mcL (4.5-11.0)
[2020-12-25 07:38] LABS: ALT/SGPT 29 U/L (<40); AST/SGOT 46 U/L (<32); Albumin 3.8 gm/dL (3.2-5.2); Albumin/Globulin Ratio 1.3 (1.0-2.3); Alkaline Phosphatase 65 U/L (39-117); Bilirubin,Direct < 0.2 mg/dL (0-0.3); Bilirubin,Total 0.3 mg/dL (0.1-1.0); Blood Urea Nitrogen 27 mg/dL (8-23); Calcium 9.7 mg/dL (8.6-10.4); Carbon Dioxide 25 mmol/L (22-30); Chloride 99 mmol/L (96-108); Glomerular Filtration Rate 56; Glucose 101 mg/dL (70-105); Lactate Dehydrogenase 247 U/L (135-225); Phosphorous 3.7 mg/dL (2.5-4.5); Triglycerides 129 mg/dL (<150); Uric Acid 6.5 mg/dL (2.5-8.0)
[2020-12-25] MEDS ORDERED: THIAMINE 100 MG in 0.9 % SODIUM CHLORIDE 50 ML IV SCH (09:00)
[2020-12-25] MEDS: ESCITALOPRAM 20 MG TABLET PO SCH (10:00)
[2020-12-25] MEDS: DOCUSATE SODIUM 100 MG CAPSULE PO SCH ×2 (10:00→21:52)
[2020-12-25] MEDS: CYANOCOBALAMIN (VITAMIN B-12) 500 MCG TABLET PO SCH ×2 (10:01→21:56)
[2020-12-25] MEDS: SPIRONOLACTONE 25 MG TABLET PO SCH (10:01)
[2020-12-25] MEDS: ASPIRIN 325 MG ENTERIC COATED TABLET PO SCH (10:01)
[2020-12-25] MEDS: MULTIVIT,THER IRON,CA,FA & MIN 1 TABLET PO SCH (10:01)
[2020-12-25] MEDS: 0.9 % SODIUM CHLORIDE 10 ML SYRINGE IV SCH ×3 (10:02→22:04)
[2020-12-25] MEDS: LACTULOSE 20 GM/30 ML ORAL.SOL PO SCH ×2 (10:02→21:58)
[2020-12-25] MEDS: POTASSIUM CHLORIDE 20 MEQ TABLET PO SCH (10:02)
[2020-12-25] MEDS: METOPROLOL TARTRATE 25 MG TABLET PO SCH ×2 (10:03→21:53)
[2020-12-25] MEDS: HEPARIN 5,000 UNIT/ML VIAL SQ SCH ×2 (10:03→22:01)
[2020-12-25] MEDS ORDERED: SUMAtriptan SUCCINATE 50 MG TABLET PO PRN (10:42)
--- NOTE | 2020-12-25 12:57 | Internal Med Progress Note ---
SUBJECTIVE Subjective Patient information: Note initiated : 12/25/20 at 12:55 pm Service Date, if different from initiated Date: [] Patient: Nazanin Quarles a 70 y/o F admitted on 12/23/20 for Headache, High Blood Pressure. Chief Complaint: [] Interval history: Ms. Quarles is a 70 year old F who was discharged 2 days ago following acute CVA on aspirin/statin. Shortly after discharge patient started experiencing throbbing headache. She became increasingly weak and this morning experienced blurred vision along with persistent frontotemporal headache. She became increasing confusion was brought into the ER for evaluation. Initial work-up was consistent with systolics over 200. Patient was started on hydralazine. With improvement in blood pressure around 170s. Subsequently hospitalist service was consulted. At the time of my evaluation patient is doing better. Able to answer most the questions. She lives with her at [place]. She denies thunderclap headache/tearing neck pain or diaphoresis. She further denies diarrhea, dysuria but feels weak and lethargic. Reviewed CT angiogram head neck from 12/21/CT head from today. No acute process. Remote lacunar right thalamic and deep frontal white matter CVA noted. 12/24-dramatic response to initiation of metoprolol with blood pressures around 120. Headache intermittent MRI shows severe sphenoid and ethmoidal sinusitis. Start antibiotic coverage. Overnight fever chills. Echocardiogram reviewed from 11/3054% EF with pulmonary pressure 35-40 12/25-patient doing well. Improved systolics however persistent headache with aura/photophobia and nausea. Responding well to Fioricet. Start sumatriptan likely migrainous. Stable hemodynamics. Constitutional Vitals: Vital Signs Temp Pulse Resp BP Pulse Ox 98.0 F 66 20 109/69 94 12/25/20 12:00 12/25/20 12:00 12/25/20 12:00 12/25/20 12:00 12/25/20 12:00 Period Temp Pulse Resp BP Sys/Benson Pulse Ox Last 24 Hr 98.0 F-99.2 F 58-67 14-24 109-157/69-97 94-97 Intake and Output 12/24/20 12/25/20 12/25/20 21:59 05:59 13:59 Intake Total 240 150 Output Total 250 250 100 Balance -10 -100 -100 Weight 46.539 kg alert oriented Nonlabored breathing Minimal anxiety No neuro deficits Intake & Output: Intake & Output 12/24/20 12/25/20 12/25/20 21:59 05:59 13:59 Intake Total 240 150 Output Total 250 250 100 Balance - -100 Weight 46.539 kg Intake: Oral 240 150 Output: Void Amount 250 250 100 Other: Meal Ensure Percent of Meal Consumed 100% Feeding Ability Independent Urine Appearance Clear Clear Urine Color Bright Yellow Bright Yellow Straw Urine Odor Normal # Voids 1 OBJ DATA Labs CBC & Chem 7: 12/25/20 05:22 12/25/20 05:22 Labs: Abnormal Lab Results 12/25/20 12/24/20 12/23/20 05:22 05:17 11:11 VBG Lactic Acid 2.2 H BUN 27 H Glucose AST 46 H 37 H Lactate Dehydrogenase 247 H 281 H 12/23/20 11:11 VBG Lactic Acid BUN Glucose 159 H AST Lactate Dehydrogenase Meds: Medications Acetaminophen (Acetaminophen 325 Mg Tablet) 650 mg PO Q4-6HP PRN; Protocol PRN Reason: Per Pain Protocol/Fever > 101 Last Admin: 12/25/20 10:00 Dose: 650 mg Documented by: Acetaminophen/Butalbital/Caffeine (Butalb/Acetaminophen/Caffeine 1 Tablet) 1 tab PO Q4HP PRN PRN Reason: Headache Last Admin: 12/25/20 02:49 Dose: 1 tab Documented by: Hydrocodone Bitart/Acetaminophen (Hydrocodone/Apap 10/325mg Tablet) 1 tab PO Q6HP PRN; Protocol PRN Reason: Pain Last Admin: 12/25/20 01:20 Dose: 1 tab Documented by: Albuterol Sulfate (Albuterol Sulfate 200 Puff Inhaler) 1 puff INH Q6HP PRN PRN Reason: Shortness Of Breath Aspirin (Aspirin 325 Mg Enteric Coated Tablet) 325 mg PO DAILY [facility] Last Admin: 12/25/20 10:01 Dose: 325 mg Documented by: Atorvastatin Calcium (Atorvastatin 40 Mg Tablet) 40 mg PO QHS [facility] Last Admin: 12/24/20 20:38 Dose: 40 mg Documented by: Bisacodyl (Bisacodyl 10 Mg Supp.Rect) 10 mg AL Q2-3DAYS PRN PRN Reason: Constipation Cyanocobalamin (Cyanocobalamin (Vitamin B-12) 500 Mcg Tablet) 1,000 mcg PO BID [facility] Stop: 12/28/20 09:01 Last Admin: 12/25/20 10:01 Dose: 1,000 mcg Documented by: Docusate Sodium (Docusate Sodium 100 Mg Capsule) 100 mg PO BID [facility] Last Admin: 12/25/20 10:00 Dose: 100 mg Documented by: Escitalopram Oxalate (Escitalopram 20 Mg Tablet) 20 mg PO QDAY [facility] Last Admin: 12/25/20 10:00 Dose: 20 mg Documented by: Guaifenesin/Codeine Phosphate (Guaifenesin/Codeine 10 Ml Udc) 10 ml PO Q4HP PRN PRN Reason: Cough Heparin Sodium (Porcine) (Heparin 5,000 Unit/Ml Vial) 5,000 unit SQ Q12 [facility] Last Admin: 12/25/20 10:03 Dose: 5,000 unit Documented by: Hydralazine HCl (Hydralazine 20 Mg/Ml Vial) 10 mg IV Q4-6HP PRN PRN Reason: Hypertension Acetaminophen (Ofirmev) 650 mg in 65 mls @ 130 mls/hr IV Q6HP PRN; Protocol PRN Reason: Per Pain Protocol/Fever > 101 Magnesium Sulfate (Magnesium Sulfate) 2 gm in 50 mls @ 50 mls/hr IV UD PRN PRN Reason: MG = or < 1.7 Potassium Chloride 40 meq/ (Dextrose) 520 mls @ 130 mls/hr IV UD PRN PRN Reason: K+ = or < 3.5 Iron Carb/Multivit/[employer]/Folic Acid (Multivit,Ther Iron,Ca,Fa & Min 1 Tablet) 1 tab PO DAILY [facility] Last Admin: 12/25/20 10:01 Dose: 1 tab Documented by: Lactulose (Lactulose 20 Gm/30 Ml Oral.Sravanthi) 10 gm PO BID [facility] Last Admin: 12/25/20 10:02 Dose: 10 gm Documented by: Melatonin (Melatonin 3 Mg Tablet) 3 mg PO HSP PRN PRN Reason: Insomnia Metoprolol Tartrate (Metoprolol Tartrate 25 Mg Tablet) 12.5 mg PO BID [facility] Last Admin: 12/25/20 10:03 Dose: 12.5 mg Documented by: Ondansetron HCl (Ondansetron 4 Mg Odt Tablet) 4 mg SL Q4-6HP PRN; Protocol PRN Reason: Nausea And Vomiting Ondansetron HCl (Ondansetron 4 Mg/2 Ml Vial) 4 mg IV Q4-6HP PRN; Protocol PRN Reason: Nausea And Vomiting Last Admin: 12/24/20 13:10 Dose: 4 mg Documented by: Polyethylene Glycol (Polyethylene Glycol 3350 17 Gm Packet) 17 gm PO DAILYP PRN PRN Reason: Constipation Potassium Chloride (Potassium Chloride 20 Meq Tablet) 20 meq PO QAC [facility] Last Admin: 12/25/20 10:02 Dose: 20 meq Documented by: Potassium/Phosphorus/Sodium (Neutra Phos 1 Packet) 2 packet PO DAILY PRN PRN Reason: PHOS <2.5 Promethazine HCl (Promethazine 25 Mg/Ml Vial) 0 mg IV Q4HP PRN PRN Reason: Nausea And Vomiting Senna/Docusate Sodium (Sennosides/Docusate Sodium 1 Tab Tablet) 1 tab PO HS [facility] Last Admin: 12/24/20 20:43 Dose: Not Given Documented by: Sodium Chloride (0.9 % Sodium Chloride 10 Ml Syringe) 10 ml IV Q8 [facility] Last Admin: 12/25/20 10:02 Dose: 10 ml Documented by: Spironolactone (Spironolactone 25 Mg Tablet) 25 mg PO DAILY [facility] Last Admin: 12/25/20 10:01 Dose: 25 mg Documented by: Sumatriptan Succinate (Sumatriptan Succinate 50 Mg Tablet) 50 mg PO DAILYP PRN PRN Reason: Migraine Headache Last Admin: 12/25/20 11:51 Dose: 50 mg Documented by: A/P Narrative A/P Narrative: * Hypertensive crisis with headache/encephalopathy-clinical resolution noted. Now on metoprolol with systolics at goal * Migrainous headache-continue Fioricet/sumatriptan * Recent ischemic CVA-MRI brain no evidence of acute process. Echocardiogram EF 45 to 50%. On aspirin 325/statin * Anxiety disorder continue escitalopram * Degenerative disease continue hydrocodone * Full code * Prophylaxis Heparin Plan * Continue beta-raji * Antimigraine treatment * PT OT nutrition support * Discharge once clinically stable Time Spent With Patient Time: Total time spent is greater than 50% in coordination of care (as documented) at patient's floor/unit and/or counseling patient: QUALITY Stroke Symptom Onset Unknown: Yes
[2020-12-25] MEDS: SENNOSIDES/DOCUSATE SODIUM 1 TAB TABLET PO SCH (21:52)
[2020-12-25] MEDS: ATORVASTATIN 40 MG TABLET PO SCH (21:55)
[2020-12-26] MEDS: BUTALB/ACETAMINOPHEN/CAFFEINE 1 TABLET PO PRN ×2 (01:02→08:36)
[2020-12-26 07:45] LABS: Eosinophils # (Auto) 0.41 K/mcL (0.00-0.70); Eosinophils % (Auto) 3.9 % (0.0-7.0); Hematocrit 37.3 % (36.0-48.0); Hemoglobin 12.1 g/dL (12.0-15.0); Lymphocytes # (Auto) 3.59 K/mcL (1.50-4.80); Lymphocytes % (Auto) 34.5 % (15.0-49.0); Mean Cell Volume 86.5 fL (80.0-100.0); Mean Corpuscular HGB Conc 32.4 g/dL (31.0-36.0); Monocytes # (Auto) 0.61 K/mcL (0.10-0.90); Monocytes % (Auto) 5.9 % (1.0-12.0); Neutrophils % (Auto) 54.7 % (38.0-78.0); Platelet Count 379 K/mcL (140-440); RBC 4.31 M/mcL (4.00-5.20); Red Cell Distribution Width 14.2 % (11.5-14.5); WBC 10.4 K/mcL (4.5-11.0)
[2020-12-26] MEDS: CYANOCOBALAMIN (VITAMIN B-12) 500 MCG TABLET PO SCH (08:36)
[2020-12-26] MEDS: MULTIVIT,THER IRON,CA,FA & MIN 1 TABLET PO SCH (08:38)
[2020-12-26] MEDS: SPIRONOLACTONE 25 MG TABLET PO SCH (08:38)
[2020-12-26] MEDS: ASPIRIN 325 MG ENTERIC COATED TABLET PO SCH (08:38)
[2020-12-26] MEDS: ESCITALOPRAM 20 MG TABLET PO SCH (08:39)
[2020-12-26] MEDS: POTASSIUM CHLORIDE 20 MEQ TABLET PO SCH (08:39)
[2020-12-26] MEDS ORDERED: cefTRIAXone 2 GM in DEXTROSE 5% IN WATER 50 ML IV SCH (09:00)
[2020-12-26 10:14] LABS: ALT/SGPT 35 U/L (<40); AST/SGOT 51 U/L (<32); Albumin/Globulin Ratio 1.5 (1.0-2.3); Alkaline Phosphatase 69 U/L (39-117); Bilirubin,Direct < 0.2 mg/dL (0-0.3); Bilirubin,Total 0.3 mg/dL (0.1-1.0); Blood Urea Nitrogen 27 mg/dL (8-23); Calcium 9.8 mg/dL (8.6-10.4); Carbon Dioxide 24 mmol/L (22-30); Chloride 100 mmol/L (96-108); Globulin 2.6 gm/dL (2.2-3.7); Glomerular Filtration Rate 50; Glucose 94 mg/dL (70-105); Lactate Dehydrogenase 278 U/L (135-225); Phosphorous 3.2 mg/dL (2.5-4.5); Triglycerides 153 mg/dL (<150); Uric Acid 6.8 mg/dL (2.5-8.0)
[2020-12-26] MEDS: LACTULOSE 20 GM/30 ML ORAL.SOL PO SCH (10:14)
[2020-12-26] MEDS: METOPROLOL TARTRATE 25 MG TABLET PO SCH (10:15)
[2020-12-26] MEDS: HEPARIN 5,000 UNIT/ML VIAL SQ SCH (10:16)
[2020-12-26] MEDS: DOCUSATE SODIUM 100 MG CAPSULE PO SCH (10:16)
[2020-12-26] MEDS: 0.9 % SODIUM CHLORIDE 10 ML SYRINGE IV SCH (12:55)
--- NOTE | 2020-12-26 13:11 | Discharge Summary ---
Discharge Provider Provider Patient information: Note initiated : 12/26/20 at 1:09 pm Service Date, if different from initiated Date: [] Patient: Nazanin Quarles 70 y/o F admitted on 12/23/20 for Headache, High Blood Pressure. Discharge diagnosis * Hypertensive crisis with headache/encephalopathy-clinical resolution noted. Now on metoprolol with systolics at goal * Migrainous headache-continue Fioricet/sumatriptan * Severe ethmoid and sphenoid sinusitis on CT. 7-day oral antibiotic * Recent ischemic CVA-MRI brain no evidence of acute process. Echocardiogram EF 45 to 50%. On aspirin 325/statin * Anxiety disorder continue escitalopram * Degenerative disease continue hydrocodone Brief hospital course Ms. Quarles is a 70 year old F who was discharged 2 days ago following acute CVA on aspirin/statin. Shortly after discharge patient started experiencing throbbing headache. She became increasingly weak and this morning experienced blurred vision along with persistent frontotemporal headache. She became increasing confusion was brought into the ER for evaluation. Initial work-up was consistent with systolics over 200. Patient was started on hydralazine. With improvement in blood pressure around 170s. Subsequently hospitalist service was consulted. At the time of my evaluation patient is doing better. Able to answer most the questions. She lives with her at [place]. She denies thunderclap headache/tearing neck pain or diaphoresis. She further denies diarrhea, dysuria but feels weak and lethargic. Reviewed CT angiogram head neck from 12/21/CT head from today. No acute process. Remote lacunar right thalamic and deep frontal white matter CVA noted. 12/24-dramatic response to initiation of metoprolol with blood pressures around 120. Headache intermittent MRI shows severe sphenoid and ethmoidal sinusitis. Start antibiotic coverage. Overnight fever chills. Echocardiogram reviewed from 11/3054% EF with pulmonary pressure 35-40 12/25-patient doing well. Improved systolics however persistent headache with aura/photophobia and nausea. Responding well to Fioricet. Start sumatriptan likely migrainous. Stable hemodynamics. 12/26-started on antibiotic coverage for severe ethmoidal and sphenoid sinusitis. Headache much improved on Fioricet. Discharging with advised to continue additional 7 days oral antibiotic and follow-up PCP. Blood pressure improved on addition of beta-raji. Date of admission: 12/23/20 14:59 Discharge date: 12/26/20 Primary care physician: Ju Silva Consults: 12/23/20 13:24 Consult to Physician [CONS] Stat Comment: Consulting Provider: Silvino Abdalla Reason For Exam: Physician to Consult Discharge Meds Discharge Medications Home Medications escitalopram oxalate 20 mg tablet 20 mg PO QDAY #90 tab 11/06/19 [Rx Confirmed 12/23/20 Last Taken Unknown] spironolactone 25 mg tablet See Rx Instructions .ROUTE .COMPLEX #90 tablet 11/06/19 [Rx Confirmed 12/23/20 Last Taken Unknown] albuterol sulfate 90 mcg/actuation aerosol inhaler See Rx Instructions INHALATION .COMPLEX 02/02/20 [History Confirmed 12/23/20 Last Taken Unknown] atorvastatin 40 mg tablet 40 mg PO QHS #90 tab 08/05/20 [Rx Confirmed 12/23/20 Last Taken Unknown] hydrocodone 10 mg-acetaminophen 325 mg tablet 1 tab PO Q6H PRN #120 tab 12/05/20 [Rx Confirmed 12/23/20 Last Taken Unknown] lactulose 10 gm PO BID 14 Days ml 12/21/20 [Rx Confirmed 12/23/20 Last Taken Unknown] potassium chloride 20 meq PO QAM 12/23/20 [History Confirmed 12/23/20 Last Taken Unknown] aspirin 325 mg PO DAILY #30 tab 12/26/20 [Rx Last Taken Unknown] [id number]-pjsxgjybnqzmw-tgfa 1 tab PO Q4HP PRN #20 tab 12/26/20 [Rx Last Taken Unknown] cefixime 400 mg PO QDAY 7 Days #7 cap 12/26/20 [Rx Last Taken Unknown] metoprolol tartrate 12.5 mg PO BID #60 tab 12/26/20 [Rx Last Taken Unknown] COURSE Hospital Course Hospital course: . Discharge diagnosis: Hypertensive crisis Time Spent with Patient Time attestation: Total time spent providing and/or coordinating discharge services: EXAM Constitutional Vitals: Temp Pulse Resp BP Pulse Ox 98.2 F 69 16 128/83 95 12/26/20 11:40 12/26/20 11:40 12/26/20 11:40 12/26/20 11:40 12/26/20 11:40 Discharge Data Data Completed and Pending Labs on day of discharge: Labs from last 24 hours 12/26/20 12/26/20 05:36 05:36 WBC 10.4 RBC 4.31 Hgb 12.1 Hct 37.3 MCV 86.5 MCH 28.1 MCHC 32.4 RDW 14.2 Plt Count 379 MPV 9.0 Neut % (Auto) 54.7 Lymph % (Auto) 34.5 Cameron % (Auto) 5.9 Eos % (Auto) 3.9 Baso % (Auto) 1.0 Lymph # (Auto) 3.59 Cameron # (Auto) 0.61 Eos # (Auto) 0.41 Baso # (Auto) 0.10 Absolute Neutrophils 5.69 Sodium 135 Potassium 4.3 Chloride 100 Carbon Dioxide 24 Anion Gap 11.0 BUN 27 H Creatinine 1.1 GFR Calculation 50 Glucose 94 Uric Acid 6.8 Calcium 9.8 Phosphorus 3.2 Magnesium 1.8 Total Bilirubin 0.3 Direct Bilirubin < 0.2 GGT 28 AST 51 H ALT 35 Alkaline Phosphatase 69 Lactate Dehydrogenase 278 H Total Protein 6.6 Albumin 4.0 Globulin 2.6 Albumin/Globulin Ratio 1.5 Triglycerides 153 H Discharge Plan Patient/Caregiver Discharge Instructions Activity: increase activity as tolerated Diet: Regular Diet Activity Restrictions/Additional Instructions: Continue oral antibiotic for 7 days Continue beta-raji Return to ER if weakness headache nausea vomiting or bleeding noted Prescriptions: New qlfcuxerqb-lrcihnznlrngr-araf 50-325-40 mg Tablet 1 tab PO Q4HP PRN (Reason: Headache) Qty: 20 RF: 0 aspirin 325 mg Tablet,Delayed Release (Dr/Ec) 325 mg PO DAILY Qty: 30 RF: 0 metoprolol tartrate 25 mg Tablet 12.5 mg PO BID Qty: 60 RF: 0 cefixime 400 mg capsule 400 mg PO QDAY 7 Days Qty: 7 RF: 0 Continued escitalopram oxalate [Lexapro] 20 mg tablet 20 mg PO QDAY Qty: 90 RF: 4 spironolactone 25 mg tablet See Rx Instructions .ROUTE .COMPLEX Qty: 90 RF: 4 atorvastatin 40 mg tablet 40 mg PO QHS Qty: 90 RF: 1 hydrocodone-acetaminophen 10-325 mg tablet 1 tab PO Q6H PRN (Reason: Pain) Qty: 120 RF: 0 albuterol sulfate 90 mcg/actuation HFA aerosol inhaler See Rx Instructions INHALATION .COMPLEX RF: 0 lactulose 20 gram/30 mL Solution 10 gm PO BID 14 Days RF: 1 potassium chloride 10 mEq tablet extended release 20 meq PO QAM RF: 0 Discontinued aspirin 81 mg tablet,delayed release (DR/EC) 81 mg PO QDAY RF: 0 doxycycline hyclate 100 mg capsule 100 mg PO BID RF: 0 Follow Up Plan Follow up with: Ju Silva ARNP [Primary Care Provider] - Patient Disposition: Home, Self-Care Prognosis: Fair Rehab Potential: Fair I certify that the patient requires SNF services: No Overall status at discharge: patient is progressing back to baseline Discharge Orders: Discharge Order (Routine); Ordered 12/26/20 Ordered By: Silvino Abdalla
== END 2020-12-26 15:00 | disposition home or self-care (01) | DRG 305 ==
LOC: ED 10:44 → ICU 14:05 → MEDSUR 12-24 18:00
PROVIDERS: ADMIT Internal Medicine; ATTEND Internal Medicine

== ENCOUNTER 2021-05-05 10:58 | Observation (INO) ==
[2021-05-05] MEDS ORDERED: IOPAMIDOL 100 ML BOTTLE IV ONE (10:59)
[2021-05-05] MEDS ORDERED: ONDANSETRON 4 MG/2 ML VIAL IV ONE (12:43)
[2021-05-05] MEDS ORDERED: ACETAMINOPHEN 1,000 MG/100 ML BAG IV ONE (13:31)
[2021-05-05 13:55] LABS: Hematocrit 39.2 % (34.1-44.9); Hemoglobin 13.1 g/dL (11.2-15.7); Mean Cell Volume 84.3 fL (80.0-100.0); Mean Corpuscular HGB Conc 33.4 g/dL (31.0-36.0); Mean Platelet Volume 8.9 fL (7.4-10.4); Platelet Count 336 K/mcL (140-440); RBC 4.65 M/mcL (3.59-5.38); Red Cell Distribution Width 13.3 % (11.5-14.5); WBC 18.3 K/mcL (4.5-11.0)
[2021-05-05 14:06] LABS: POC Creatinine 1.1 mg/dL (0.6-1.2)
[2021-05-05 14:18] LABS: ALT/SGPT 6 U/L (<40); AST/SGOT 17 U/L (<32); Albumin 4.5 gm/dL (3.2-5.2); Albumin/Globulin Ratio 1.3 (1.0-2.3); Alkaline Phosphatase 96 U/L (39-117); Bilirubin,Total 0.5 mg/dL (0.1-1.0); Blood Urea Nitrogen 14 mg/dL (8-23); Calcium 10.1 mg/dL (8.6-10.4); Carbon Dioxide 19 mmol/L (22-30); Chloride 97 mmol/L (96-108); Globulin 3.6 gm/dL (2.2-3.7); Glomerular Filtration Rate 41; Glucose 256 mg/dL (70-105)
[2021-05-05 14:23] LABS: Band Neutrophils % 8 % (0-10); Lymphocytes % 6 % (15-49); Monocytes % (Manual) 5 % (1-12); Platelet Estimate NORMAL (Normal); RBC Morphology NORMAL (Normal); Segmented Neutrophils % 81 % (38-78)
[2021-05-05] MEDS ORDERED: ESMOLOL 100 MG/10 ML VIAL IV ONE (14:44)
[2021-05-05] MEDS ORDERED: 0.9 % SODIUM CHLORIDE 250 ML IV SCH (14:45)
[2021-05-05] MEDS ORDERED: ESMOLOL 2,500 MG in PREMIX 1 BAG IV SCH (14:45)
[2021-05-05 14:54] LABS: Appearance,Urine CLEAR (Clear); Bilirubin,Urine Negative (Negative); Color,Urine STRAW; Culture Indicated,Urine No; Glucose,Urine (UA) 150 mg/dL (Negative); Ketones,Urine 5 mg/dL (Negative); Leukocyte Esterase,Urine Negative /ug (Negative); Nitrate,Urine Negative (Negative); Protein,Urine Negative (Negative); Specific Gravity,Urine 1.008 (1.000-1.035); Urine Blood Negative (Negative); Urobilinogen,Urine Negative
--- NOTE | 2021-05-05 15:22 | Cat Scan Report ---
History: Nausea, vomiting, diarrhea, chills, prior abdominal aorta aneurysm repair TECHNIQUE: The abdomen was first imaged without contrast at 2.5 mm intervals from the diaphragm to the acetabular roofs. Intravenous nonionic contrast was injected. Arterial phase images were acquired from the thoracic inlet to the symphysis pubis. Sagittal and coronal reformats were created. The radiation exposure was limited using dose reduction technology. 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 It measures 6.4 x 6.7 cm in transverse dimension and approximately 13 cm in length. There is no narrowing of the lumen. There is a large amount of organized thrombus along the wall of the aneurysm. There is no rupture or dissection. This is compressing the left mainstem bronchus. A small saccular aneurysm is present along the posterior wall of the distal aspect of the aortic arch. It measures 2.3 cm. Large amount calcified plaque is present along the wall of the aorta. Ascending aorta is normal in caliber. Great vessels arising from the aorta are normal except for scattered plaques. Descending aorta is ectatic as it crosses through the diaphragm where it measures 3.5 cm. Moderate emphysema is present throughout both lungs. There is no evidence of pneumonia or pulmonary mass. No pleural effusion is present. Heart size is normal. Moderate amount calcified plaque is present in the left anterior descending coronary and there is a small amount of plaque in the circumflex and right main coronary. There is a metal right shoulder prosthesis causing beam hardening artifact. ABDOMEN: There is an endograft in the abdominal aorta extending from the level of the renal arteries into the common iliac arteries. The graft is patent. There is no evidence of an endoleak. No retroperitoneal hemorrhage is present. The fusiform aneurysm of the distal abdominal aorta measures 4 cm in transverse dimension. The liver and spleen are normal in size. The gallbladder is normal. There is atrophy of the pancreas. Adrenals are normal. There is mild atrophy of both kidneys. No mass, abscess, adenopathy or ascites are present in the abdomen or pelvis. The bowel gas pattern is normal, except for noninflamed diverticula in the sigmoid colon. Urinary bladder is normally distended. Uterus has been removed. Neither ovary is seen. There is cement within the L1 vertebra following prior kyphoplasty. IMPRESSION: Giant aneurysm of the descending thoracic aorta measuring 6.7 cm in greatest transverse dimension and 13 cm in length Well-positioned patent endograft within the abdominal aorta aneurysm Moderate emphysema Genie Castillo was called with the report Interpreted and Authenticated by: Richmond Bowling 05/05/21
[2021-05-05] MEDS ORDERED: VANCOMYCIN 1,000 MG in 0.9 % SODIUM CHLORIDE 250 ML IV ONE (16:09)
[2021-05-05] MEDS ORDERED: cefTRIAXone 1 GM VIAL IV ONE (16:09)
[2021-05-05] MEDS ORDERED: PROCHLORPERAZINE 10 MG/2 ML VIAL IV ONE (16:14)
--- NOTE | 2021-05-05 16:19 | EKG ---
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
--- NOTE | 2021-05-05 17:27 | Emergency Department Note ---
Nausea/Vomiting/Diarrhea HPI General Chief complaint: Nausea/Vomiting/Diarrhea Stated complaint: N/V/D Time Seen by Provider: 05/05/21 12:43 Source: patient Mode of arrival: ambulatory Limitations: no limitations History of Present Illness HPI Narrative: This is a 71-year-old female patient who presents with less than 24 hours of severe nausea with intermittent vomiting. She reports this started at 10:30 PM last night. Prior to that she was in her usual state of health. She does have a history of an endograft AAA repair in 2012. Other abdominal surgeries include an appendectomy and hysterectomy. She denies fever, but does complain of rigors and is chilled on presentation today. She denies dysuria or hematuria. Denies diarrhea. Denies melena or hematochezia. Denies hematemesis. Patient has a history of hypertension and states she was recently placed on a new blood pressure medication last month. She takes this at night, and did take her blood pressure medications last night. She is quite hypertensive on exam here with manual blood pressures 180/115 mmHg on the LUE and 184/120 mmHg on the RUE. She denies chest pain or shortness of breath. She denies lightheadedness or dizziness. She denies headache. Related Data Home Medications Medication Instructions Recorded Confirmed albuterol sulfate 90 mcg/actuation See Rx Instructions INHALATION 02/02/20 05/05/21 aerosol inhaler .COMPLEX PRN potassium chloride 20 meq PO QAM 12/23/20 05/05/21 aspirin 81 mg PO QDAY 05/05/21 05/05/21 methocarbamol 500 mg PO BID PRN 05/05/21 05/05/21 Previous Rx's Medication Instructions Recorded lactulose 10 gm PO BID 14 Days ml 12/21/20 omonotoxnx-mbnbkhuqdszjz-vdes 1 tab PO Q4HP PRN #20 tab 12/26/20 amlodipine 2.5 mg tablet 2.5 mg PO QDAY #90 tab 02/03/21 spironolactone 25 mg tablet See Rx Instructions .ROUTE 02/12/21 .COMPLEX #90 tablet escitalopram oxalate 20 mg tablet See Rx Instructions .ROUTE 02/15/21 .COMPLEX #90 tab atorvastatin 40 mg tablet See Rx Instructions .ROUTE 03/14/21 .COMPLEX #90 tab hydrocodone 10 mg-acetaminophen 1 tab PO Q6H PRN #120 tab 05/01/21 325 mg tablet Allergies Allergy/AdvReac Type Severity Reaction Status Date / Time JC Inhibitors Allergy Intermediate Respiratory Verified 01/30/21 11:11 problems, e.g. wheezing Penicillins Allergy Intermediate Rash and Verified 05/05/21 11:55 Psorasis fentanyl [From Duragesic] AdvReac Mild Nausea Verified 01/30/21 11:11 olmesartan [From Benicar] AdvReac Mild Heartburn Verified 01/30/21 11:11 Review of Systems ROS ROS Narrative: Narrative: All systems ED: reviewed and negative except as stated. [facility] Narrative Patient History Narrative: Narrative: Medical/Surgical/Family History All Active Problems Weakness (Acute) Smoker (Acute) Sinusitis (Acute) Occult blood positive stool (Acute) Acute ischemic stroke (Acute) Hyperammonemia (Acute) AMS (altered mental status) (Acute) LBACK (acute kidney injury) (Acute) CHF (congestive heart failure) (Acute) Sinus congestion (Acute) Headache (Acute) Acute ethmoidal sinusitis (Acute) Lymphadenopathy (Acute) Osteoporosis (Acute) Radiculopathy of lumbar region (Chronic) Degenerative joint disease (Chronic) Myofascial pain (Chronic) Chronic, continuous use of opioids (Chronic) Status post replacement of right shoulder joint (Chronic ~2004) History of hysterectomy (Chronic) History of colonoscopy (Chronic 10/01/20) Dizziness (Chronic) Orthostatic hypotension (Chronic) Gouty arthritis of left great toe (Chronic) Psoriatic arthritis (Chronic) Migraines (Chronic) Degeneration of cervical intervertebral disc (Chronic) Hypertriglyceridemia (Chronic) Degenerative disc disease (Chronic) COPD (chronic obstructive pulmonary disease) (Chronic) Depression (Chronic) Abdominal aortic aneurysm (Chronic) Other group home (current) drug therapy (Chronic) Low back pain syndrome (Chronic) CAD (coronary artery disease) (Chronic) URI (upper respiratory infection) (Chronic) Hypokalemia (Chronic) Intermittent chest pain (Chronic) Hypertension (Chronic) Renal insufficiency (Chronic) Contusion (Chronic) Right wrist sprain (Chronic) Medical History Abdominal aortic aneurysm Acute ethmoidal sinusitis CAD (coronary artery disease) Contusion COPD (chronic obstructive pulmonary disease) Degeneration of cervical intervertebral disc Degenerative disc disease Degenerative joint disease Depression Dizziness Gouty arthritis of left great toe Headache Hypertension Hypertriglyceridemia Hypokalemia Intermittent chest pain Low back pain syndrome Migraines Myofascial pain Orthostatic hypotension 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 Eller History of hysterectomy History of surgery TF JOSE RAUL #1 Lt L2-3 w/o sed 09/21/17 Trigger Point Injection, left Rhomboid w/o sed 07/23/2016 TF JOSE RAUL #1 L2-3, left w/o sed 07/23/2016 TPI\'s Left Rhomboid, Left PSIS 03/24/16 TF JOSE RAUL #2 Left L2-3 w/o sed 03/24/16 TF JOSE RAUL #1 Left L2-3 w/o sed 11/28/15 TF JOSE RAUL #2, Left L2-3 w/o sed 11/12/2014 TF JOSE RAUL #1 Left L2-3 w/o sed 05/29/2014 TF JOSE RAUL #1 L2-3 w/out sed 10-30-13 Lumbar Vertebroplasty L1 w/sed 10/16/2013 TF JOSE RAUL #2 L2-3 right w/out sed. 10-19-12 TF JOSE RAUL #1 Right L2-3 w/o sed 03-29-12 TF JOSE RAUL #2 Right L2-3 w/o sed 08-27-11 TF OJSE RAUL #1 L2-3, Right w/o sed 08-11-11 Status post replacement of right shoulder joint (~2004) Family History Mother Migraines Father Leukemia Heart disease Sister CVA (cerebral vascular accident) Social History Smoking Status: Former smoker Alcohol Intake Frequency: does not drink Substance Use: does not use Exam Narrative Narrative: General: AOx3, NAD, ill appearing. Complaining of nausea. HEENT: PERRLA, EOMI, normocephalic. Moist mucous membranes. Normal facies Chest: Symmetric, no pain to palpation Respiratory: Lungs clear to auscultation bilaterally. No respiratory distress. Unlabored breathing. Heart: Regular rate and rhythm, no murmurs/clicks/rubs. Abdomen: Non-tender, Non distended, normal bowel tones. Palpable abdominal aorta. No bruits. No organomegaly. Bilateral femoral pulses are palpable and robust. Extremities: Warm and well perfused. No edema. DP 2+ bilaterally. No venous stasis. Neuro: No focal deficits. Cranial nerves II-XII normal. Skin: Warm dry, no rashes or lesions, no cyanosis. Psych: Normal mood and affect Heme/Lymph: No bruising General Limitations: no limitations Course Course Course Narrative: 71-year-old female presents with acute nausea and vomiting and abdominal pain Reevaluation(s) Reevaluation #1: Obtain CBC, CMP, UA, EKG Give IV fluids and antiemetics Reevaluation #2: EKG shows normal sinus rhythm with no evidence of ST elevation PR or abnormal ST changes.. QTC is 491. CBC with an elevated WBC of 18,300. We will check a lactic acid and obtain blood cultures, start broad-spectrum antibiotics with vancomycin and ceftriaxone (patient has an allergy to penicillins) Obtain CT of the abdomen pelvis with contrast to rule out intra-abdominal infection Reevaluation #3: Urinalysis without findings of infection CT of the abdomen pelvis shows a large 6.7 cm x 13 cm aneurysm of the descending thoracic aorta. This is compressing the esophagus. There is also a large amount of fluid in the stomach but no clear evidence of obstruction. No intraperitoneal abscesses free fluid, air, or other evidence of infection. Lactic acid is mildly elevated at 2.6. In discussion with Dr. Benoit he believes that there is likely gastric outlet obstruction given the size of the stomach and distention with fluid. He recommends NG tube placement. I have circled back with the radiologist who is willing to place the NG tube under fluoroscopy. Additional Reevaluation(s): Patient is markedly improved after NG tube placement successfully. She had immediate 300 mL of NG output on low intermittent continuous suction. I spoke with Dr. Benoit as well as Dr. Mead, vascular surgeon at [facility] who both feel that this her current symptoms are unlikely to be related to her thoracic aneurysm. Dr. Benoit feels that the stomach is compressed by the endovascular graft, which is ultimately causing a mechanical outlet obstruction. I reached out to [facility] for a medical bed and they are not available. I have reached out to [facility] as well and they are currently not available. I have spoken with Jeniffer and the patient would likely need a monitored bed given that she remains on esmolol drip. The esmolol drip has been attempted to be titrated down with limited success and her blood pressures are currently 150 mcg/min with blood pressures 160/[address] I spoke with [address] Benoit who agrees that her blood pressures need to be in better control but if they can be done off the esmolol drip that would be acceptable. He would like to see her blood pressures below 160 mmHg. We will get her off esmolol drip and start her on metoprolol tartrate 25 mg. Once she is off the esmolol drip she will be appropriate for [facility] bed. Vital Signs Vital signs: Vital Signs Temperature 98.0 F 05/05/21 11:52 Pulse Rate 86 05/05/21 11:52 Respiratory Rate 20 05/05/21 11:52 Blood Pressure 192/105 05/05/21 11:52 Pulse Oximetry (%) 98 05/05/21 11:52 Temperature 98.0 F 05/05/21 11:52 Pulse Rate 99 H 05/05/21 22:34 Respiratory Rate 26 H 05/05/21 22:34 Blood Pressure 150/98 05/05/21 22:31 Pulse Oximetry (%) 95 05/05/21 22:34 [facility] Narrative Medical decision making narrative: Intractable nausea and vomiting Gastric outlet obstruction Massive descending thoracic abdominal aneurysm Hypertension Leukocytosis Possible sepsis Patient has been stabilized off her esmolol drip with current blood pressure of 114/77 mmHg. She has been started 25 mg metoprolol tartrate x1 dose. She has received ceftriaxone and vancomycin for her lactic acidosis and leukocytosis. She will need further work-up and evaluation of her blood pressures and gastric outlet obstruction. I have discussed her with the hospitalist, Dr. Dumont, who has agreed for admission. Patient's disposition will be admission here at [facility] to a medical surgical bed. Lab Data Result diagrams: 05/05/21 13:09 05/05/21 13:09 Labs: Lab Results 05/05/21 05/05/21 05/05/21 Range/Units 13:09 13:09 13:45 WBC 18.3 H (4.5-11.0) K/mcL RBC 4.65 (3.59-5.38) M/mcL Hgb 13.1 (11.2-15.7) g/dL Hct 39.2 (34.1-44.9) % MCV 84.3 (80.0-100.0) fL MCH 28.2 (26.0-34.0) pg MCHC 33.4 (31.0-36.0) g/dL RDW 13.3 (11.5-14.5) % Plt Count 336 (140-440) K/mcL MPV 8.9 (7.4-10.4) fL Seg Neutrophils % 81 H (38-78) % Band Neutrophils % 8 (0-10) % Lymphocytes % 6 L (15-49) % Monocytes % (Manual) 5 (1-12) % Platelet Estimate Normal (Normal) RBC Morphology Normal (Normal) VBG Lactic Acid (0.5-2.0) mmol/L Sodium 136 (133-145) mmol/L Potassium 3.8 (3.3-5.1) mmol/L Chloride 97 (96-108) mmol/L Carbon Dioxide 19 L (22-30) mmol/L Anion Gap 20.0 H (8.0-16.0) BUN 14 (8-23) mg/dL Creatinine 1.3 H (0.6-1.1) mg/dL POC Creatinine (0.6-1.2) mg/dL GFR Calculation 41 Glucose 256 H (70-105) mg/dL Calcium 10.1 (8.6-10.4) mg/dL Total Bilirubin 0.5 (0.1-1.0) mg/dL AST 17 (<32) U/L ALT 6 (<40) U/L Alkaline Phosphatase 96 (39-117) U/L Total Protein 8.1 (5.9-8.4) gm/dL Albumin 4.5 (3.2-5.2) gm/dL Globulin 3.6 (2.2-3.7) gm/dL Albumin/Globulin Ratio 1.3 (1.0-2.3) Urine Color Straw Urine Appearance Clear (Clear) Urine pH 7.0 (5.0-9.0) Ur Specific [place] 1.008 (1.000-1.035) Urine Protein Negative (Negative) mg/dL Urine Glucose (UA) 150 A (Negative) mg/dL Urine Ketones 5 A (Negative) mg/dL Urine Occult Blood Negative (Negative) mg/dL Urine Nitrate Negative (Negative) Urine Bilirubin Negative (Negative) mg/dL Urine Urobilinogen Negative mg/dL Ur Leukocyte Esterase Negative (Negative) /ug Ur Culture Indicated? No 05/05/21 05/05/21 Range/Units 13:49 14:25 WBC (4.5-11.0) K/mcL RBC (3.59-5.38) M/mcL Hgb (11.2-15.7) g/dL Hct (34.1-44.9) % MCV (80.0-100.0) fL MCH (26.0-34.0) pg MCHC (31.0-36.0) g/dL RDW (11.5-14.5) % Plt Count (140-440) K/mcL MPV (7.4-10.4) fL Seg Neutrophils % (38-78) % Band Neutrophils % (0-10) % Lymphocytes % (15-49) % Monocytes % (Manual) (1-12) % Platelet Estimate (Normal) RBC Morphology (Normal) VBG Lactic Acid 2.6 H (0.5-2.0) mmol/L Sodium (133-145) mmol/L Potassium (3.3-5.1) mmol/L Chloride (96-108) mmol/L Carbon Dioxide (22-30) mmol/L Anion Gap (8.0-16.0) BUN (8-23) mg/dL Creatinine (0.6-1.1) mg/dL POC Creatinine 1.1 (0.6-1.2) mg/dL GFR Calculation Glucose (70-105) mg/dL Calcium (8.6-10.4) mg/dL Total Bilirubin (0.1-1.0) mg/dL AST (<32) U/L ALT (<40) U/L Alkaline Phosphatase (39-117) U/L Total Protein (5.9-8.4) gm/dL Albumin (3.2-5.2) gm/dL Globulin (2.2-3.7) gm/dL Albumin/Globulin Ratio (1.0-2.3) Urine Color Urine Appearance (Clear) Urine pH (5.0-9.0) Ur Specific [place] (1.000-1.035) Urine Protein (Negative) mg/dL Urine Glucose (UA) (Negative) mg/dL Urine Ketones (Negative) mg/dL Urine Occult Blood (Negative) mg/dL Urine Nitrate (Negative) Urine Bilirubin (Negative) mg/dL Urine Urobilinogen mg/dL Ur Leukocyte Esterase (Negative) /ug Ur Culture Indicated? ED POC Tests ED POC Tests: FITO - SARS Antigen Negative CC TIME Critical Care Time Critical Care Time: Yes Total Critical Care Time: 75 Attestation: I personally spent a total of 75 minutes of critical care time in obtaining history, performing a physical exam, bedside monitoring of interventions, collecting interpreting tests and discussions with consultants but excluding time spent performing procedures, treating other patients and t eaching time. Clinical concern: at risk for thoracic abdominal aneurysm dissection due to uncontrolled hypertension and increased intrathoracic pressure due to nausea and vomiting and gastric outlet obstruction. Intervention: placement of NG tube and initiation of esmolol drip. Extensive discussion with specialists including vascular surgery and interventional radiology to determine etiology of her gastric outlet obstruction. Eventual admission for intractable nausea and vomiting, and management of her gastric outlet obstruction and hypertension. 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
[2021-05-05] MEDS ORDERED: LIDOCAINE JEL 2% 1 TUBE 5ML TOPICAL ONE (18:09)
--- NOTE | 2021-05-05 18:45 | XRay Report ---
Procedure: Nasogastric tube insertion under fluoroscopic guidance HISTORY: Abdominal aorta aneurysm causing gastric outlet obstruction and abdominal pain Technique: The procedure and risks were explained and the patient consented. The throat was sprayed with Cetacaine spray and the left nostril anesthetized with Xylocaine jelly. Using fluoroscopic guidance a nasogastric tube was inserted through the left nostril and through the esophagus. There was relative resistance in the midthoracic esophagus due to extrinsic compression of the esophagus by the adjacent large thoracic aorta aneurysm. The catheter passed beyond this narrowed segment into the body of the stomach. Air was injected confirming placement of the tube within the lumen of the stomach. Fluid was then aspirated. The catheter was secured to the nose with an adhesive bandage. One minute eight seconds of fluoroscopy time was used. IMPRESSION: Successful placement of a nasogastric tube into the body of the stomach Interpreted and Authenticated by: Richmond Bowling 05/05/21
[2021-05-05] MEDS ORDERED: METOPROLOL TARTRATE 25 MG TABLET PO ONE (21:28)
--- NOTE | 2021-05-05 22:25 | Internal Med History&Physical ---
HPI History of Present Illness Patient information: Note initiated : 05/05/21 at 10:21 pm Service Date, if different from initiated Date: [] Patient: Nazanin Quarles 71 y/o F admitted on for N/V/D. Chief Complaint: [] History of present illness: Ms. Quarles is a 71 year old female with a history of aortic aneurysm s/p abomintal aorta endograph who presented to the ED with intractable nausea and vomiting. Workup included a CT chest abdomen pelvis which showed a larger thoracic aortic aneurysm. The patient had a NG tube placed in the ED and felt much better after suction suggesting a possible gastric outlet obstruction vs gastroparesis. Hospital medicine was asked to admit the patient. Review of systems Constitutional: positive for chills and fatigue Eyes: no vision changes or pain Cardiovascular: no chest pain, no palpitations Respiratory: no cough or dyspnea Gastrointestinal: positive for nausea and vomiting Genitourinary: no dysuria or difficulty voiding Musculoskeletal: no arthralgia or myalgia Integumentary: no skin lesion or wound Neurological: no focal weakness or numbness Psychiatric: no anxiety or depression Physical exam Head: Atraumatic, normal inspection. Eyes: normal appearance, no scleral icterus. Neck: full ROM Respiratory: no respiratory distress. Cardiovascular: normal rate and rhythm, systolic murmur GI/Abdominal: soft, nontender, no guarding. Extremities: full range of motion, nontender. Neurological: CN II-XII intact, intact motor, intact sensation. Psychiatric: normal mood. Skin: warm, normal color PFSH PFSH All Active Problems Weakness (Acute) Smoker (Acute) Sinusitis (Acute) Occult blood positive stool (Acute) Acute ischemic stroke (Acute) Hyperammonemia (Acute) AMS (altered mental status) (Acute) BLACK (acute kidney injury) (Acute) CHF (congestive heart failure) (Acute) Sinus congestion (Acute) Headache (Acute) Acute ethmoidal sinusitis (Acute) Lymphadenopathy (Acute) Osteoporosis (Acute) Radiculopathy of lumbar region (Chronic) Degenerative joint disease (Chronic) Myofascial pain (Chronic) Chronic, continuous use of opioids (Chronic) Status post replacement of right shoulder joint (Chronic ~2004) History of hysterectomy (Chronic) History of colonoscopy (Chronic 10/01/20) Dizziness (Chronic) Orthostatic hypotension (Chronic) Gouty arthritis of left great toe (Chronic) Psoriatic arthritis (Chronic) Migraines (Chronic) Degeneration of cervical intervertebral disc (Chronic) Hypertriglyceridemia (Chronic) Degenerative disc disease (Chronic) COPD (chronic obstructive pulmonary disease) (Chronic) Depression (Chronic) Abdominal aortic aneurysm (Chronic) Other correction (current) drug therapy (Chronic) Low back pain syndrome (Chronic) CAD (coronary artery disease) (Chronic) URI (upper respiratory infection) (Chronic) Hypokalemia (Chronic) Intermittent chest pain (Chronic) Hypertension (Chronic) Renal insufficiency (Chronic) Contusion (Chronic) Right wrist sprain (Chronic) Medical History Abdominal aortic aneurysm Acute ethmoidal sinusitis CAD (coronary artery disease) Contusion COPD (chronic obstructive pulmonary disease) Degeneration of cervical intervertebral disc Degenerative disc disease Degenerative joint disease Depression Dizziness Gouty arthritis of left great toe Headache Hypertension Hypertriglyceridemia Hypokalemia Intermittent chest pain Low back pain syndrome Migraines Myofascial pain Orthostatic hypotension Other long term care pharmacist (current) drug therapy Psoriatic arthritis Radiculopathy of lumbar region Renal insufficiency Right wrist sprain Sinus congestion URI (upper respiratory infection) Surgical History History of colonoscopy (10/01/20) 07/04 Dr. Eller History of hysterectomy History of surgery TF JOSE RAUL #1 Lt L2-3 w/o sed 09/21/17 Trigger Point Injection, left Rhomboid w/o sed 07/23/2016 TF JOSE RAUL #1 L2-3, left w/o sed 07/23/2016 TPI\'s Left Rhomboid, Left PSIS 03/24/16 TF JOSE RAUL #2 Left L2-3 w/o sed 03/24/16 TF JOSE RAUL #1 Left L2-3 w/o sed 11/28/15 TF JOSE RAUL #2, Left L2-3 w/o sed 11/12/2014 TF JOSE RAUL #1 Left L2-3 w/o sed 05/29/2014 TF JOSE RAUL #1 L2-3 w/out sed 10-30-13 Lumbar Vertebroplasty L1 w/sed 10/16/2013 TF JOSE RAUL #2 L2-3 right w/out sed. 2-27-13 TF JOSE RAUL #1 Right L2-3 w/o sed 03-29-12 TF JOSE RAUL #2 Right L2-3 w/o sed 08-27-11 TF JOSE RAUL #1 L2-3, Right w/o sed 08-11-11 Status post replacement of right shoulder joint (~2004) Family History Mother Migraines Father Leukemia Heart disease Sister CVA (cerebral vascular accident) Social History marital status: occupational status: retired occupation: works at [employer] alcohol intake frequency: does not drink substance use type: does not use MEDS/ALLERGIES Home Medications and Allergies Home Medications Medication Instructions Recorded Confirmed Type albuterol sulfate 90 mcg/actuation See Rx Instructions INHALATION 02/02/20 05/05/21 History aerosol inhaler .COMPLEX PRN potassium chloride 20 meq PO HS 12/23/20 05/05/21 History hydrocodone 10 mg-acetaminophen 1 tab PO Q6H PRN #120 tab 05/01/21 05/05/21 Rx 325 mg tablet amlodipine 2.5 mg PO HS 05/05/21 05/05/21 History aspirin 81 mg PO HS 05/05/21 05/05/21 History atorvastatin 40 mg HS 05/05/21 05/05/21 History escitalopram oxalate 20 mg HS 05/05/21 05/05/21 History methocarbamol 500 mg PO BID PRN 05/05/21 05/05/21 History spironolactone 25 mg HS 05/05/21 05/05/21 History Allergies Allergy/AdvReac Type Severity Reaction Status Date / Time JC Inhibitors Allergy Intermediate Respiratory Verified 05/05/21 23:16 problems, e.g. wheezing Penicillins Allergy Intermediate Rash and Verified 05/05/21 23:16 Psorasis fentanyl [From Duragesic] AdvReac Mild Nausea Verified 05/05/21 23:16 olmesartan [From Benicar] AdvReac Mild Heartburn Verified 05/05/21 23:16 EXAM Constitutional Vitals: Temp Pulse Resp BP Pulse Ox 98.0 F 86 19 164/102 97 05/05/21 11:52 05/05/21 22:10 05/05/21 22:10 05/05/21 22:06 05/05/21 22:10 DATA Data Completed and Pending Labs: Labs from last 24 hours 05/05/21 05/05/21 05/05/21 14:25 13:49 13:45 WBC RBC Hgb Hct MCV MCH MCHC RDW Plt Count MPV Seg Neutrophils % Band Neutrophils % Lymphocytes % Monocytes % (Manual) Platelet Estimate RBC Morphology VBG Lactic Acid 2.6 H Sodium Potassium Chloride Carbon Dioxide Anion Gap BUN Creatinine POC Creatinine 1.1 GFR Calculation Glucose Calcium Total Bilirubin AST ALT Alkaline Phosphatase Total Protein Albumin Globulin Albumin/Globulin Ratio Urine Color Straw Urine Appearance Clear Urine pH 7.0 Ur Specific Masterson 1.008 Urine Protein Negative Urine Glucose (UA) 150 A Urine Ketones 5 A Urine Occult Blood Negative Urine Nitrate Negative Urine Bilirubin Negative Urine Urobilinogen Negative Ur Leukocyte Esterase Negative Ur Culture Indicated? No 05/05/21 05/05/21 13:09 13:09 WBC 18.3 H RBC 4.65 Hgb 13.1 Hct 39.2 MCV 84.3 MCH 28.2 MCHC 33.4 RDW 13.3 Plt Count 336 MPV 8.9 Seg Neutrophils % 81 H Band Neutrophils % 8 Lymphocytes % 6 L Monocytes % (Manual) 5 Platelet Estimate Normal RBC Morphology Normal VBG Lactic Acid Sodium 136 Potassium 3.8 Chloride 97 Carbon Dioxide 19 L Anion Gap 20.0 H BUN 14 Creatinine 1.3 H POC Creatinine GFR Calculation 41 Glucose 256 H Calcium 10.1 Total Bilirubin 0.5 AST 17 ALT 6 Alkaline Phosphatase 96 Total Protein 8.1 Albumin 4.5 Globulin 3.6 Albumin/Globulin Ratio 1.3 Urine Color Urine Appearance Urine pH Ur Specific Masterson Urine Protein Urine Glucose (UA) Urine Ketones Urine Occult Blood Urine Nitrate Urine Bilirubin Urine Urobilinogen Ur Leukocyte Esterase Ur Culture Indicated? A/P Narrative A/P Narrative: Assessment: #Intractable nausea and vomiting -Gastroenteritis vs possible gastric outlet obstruction vs gastroparesis #Leukocytosis -Suspect stress leukocytosis #Thoracic aortic aneurysm #Abdominal aortic aneurysm s/p endograft #Hypertension Plan -NG to low intermittent suction -Antiemetic prn -IV fluid -BP meds -Monitor electrolytes Time Spent With Patient Time: Total time spent is greater than 50% in coordination of care (as documented) at patient's floor/unit and/or counseling patient:
[2021-05-05] MEDS ORDERED: LABETALOL 5 MG/ML ML IV PRN (23:41)
[2021-05-06] MEDS: 0.9 % SODIUM CHLORIDE 1,000 ML IV SCH ×3 (00:16→21:26)
[2021-05-06] MEDS ORDERED: ONDANSETRON 4 MG/2 ML VIAL ONE (02:24)
[2021-05-06] MEDS: 0.9 % SODIUM CHLORIDE 10 ML SYRINGE IV SCH ×3 (07:01→21:26)
[2021-05-06 08:08] LABS: Hematocrit 36.9 % (34.1-44.9); Hemoglobin 12.1 g/dL (11.2-15.7); Mean Cell Volume 83.3 fL (80.0-100.0); Mean Corpuscular HGB Conc 32.8 g/dL (31.0-36.0); Platelet Count 301 K/mcL (140-440); RBC 4.43 M/mcL (3.59-5.38); Red Cell Distribution Width 13.5 % (11.5-14.5); WBC 12.3 K/mcL (4.5-11.0)
[2021-05-06 08:31] LABS: ALT/SGPT 6 U/L (<40); AST/SGOT 17 U/L (<32); Albumin 4.3 gm/dL (3.2-5.2); Albumin/Globulin Ratio 1.4 (1.0-2.3); Alkaline Phosphatase 86 U/L (39-117); Bilirubin,Direct < 0.2 mg/dL (0-0.3); Bilirubin,Total 0.4 mg/dL (0.1-1.0); Blood Urea Nitrogen 17 mg/dL (8-23); Calcium 9.2 mg/dL (8.6-10.4); Carbon Dioxide 22 mmol/L (22-30); Chloride 97 mmol/L (96-108); Globulin 3.1 gm/dL (2.2-3.7); Glomerular Filtration Rate 50; Glucose 135 mg/dL (70-105); Lactate Dehydrogenase 301 U/L (135-225); Phosphorous 3.1 mg/dL (2.5-4.5); Triglycerides 112 mg/dL (<150); Uric Acid 6.4 mg/dL (2.5-8.0)
[2021-05-06] MEDS: amLODIPine 5 MG TABLET PO SCH (08:48)
[2021-05-06] MEDS ORDERED: LABETALOL 5 MG/ML ML IV PRN (08:51)
[2021-05-06] MEDS: CARVEDILOL 6.25 MG TABLET PO SCH ×2 (08:56→17:37)
[2021-05-06] MEDS: DOCUSATE SODIUM 100 MG CAPSULE PO SCH ×2 (08:56→21:25)
[2021-05-06 12:22] LABS: Lymphocytes % 15 % (15-49); Monocytes % (Manual) 3 % (1-12); Platelet Estimate NORMAL (Normal); RBC Morphology NORMAL (Normal); Segmented Neutrophils % 82 % (38-78)
[2021-05-06] MEDS: ONDANSETRON 4 MG/2 ML VIAL IV PRN (16:10)
[2021-05-06] MEDS ORDERED: MELATONIN 3 MG TABLET PO PRN (20:16)
[2021-05-06] MEDS: SENNOSIDES 1 TABLET PO SCH (21:25)
[2021-05-07] MEDS: 0.9 % SODIUM CHLORIDE 10 ML SYRINGE IV SCH ×3 (05:14→20:59)
[2021-05-07] MEDS: DOCUSATE SODIUM 100 MG CAPSULE PO SCH ×2 (07:24→19:22)
[2021-05-07] MEDS: 0.9 % SODIUM CHLORIDE 1,000 ML IV SCH ×3 (07:24→16:49)
[2021-05-07] MEDS: amLODIPine 5 MG TABLET PO SCH (07:24)
[2021-05-07] MEDS: CARVEDILOL 6.25 MG TABLET PO SCH ×2 (07:24→16:48)
[2021-05-07] MEDS: ONDANSETRON 4 MG/2 ML VIAL IV PRN ×2 (11:55→19:25)
[2021-05-07] MEDS ORDERED: amLODIPine 5 MG TABLET PO ONE (13:12)
--- NOTE | 2021-05-07 18:38 | Internal Med Progress Note ---
SUBJECTIVE Subjective Patient information: Note initiated : 05/07/21 at 6:38 pm Service Date, if different from initiated Date: [] Patient: Nazanin Quarles 71 y/o F admitted on 05/05/21 for N/V/D. Chief Complaint: [] Interval history: Ms. Quarles is a 71 year old female with a history of aortic aneurysm s/p abomintal aorta endograph who presented to the ED with intractable nausea and vomiting. Workup included a CT chest abdomen pelvis which showed a larger thoracic aortic aneurysm. The patient had a NG tube placed in the ED and felt much better after suction suggesting a possible gastric outlet obstruction vs gastroparesis. Hospital medicine was asked to admit the patient. 05/07: feels better today, clamped NG and started clears then advanced to GI soft which the patient did not tolerated. Physical exam Head: Atraumatic, normal inspection. Eyes: normal appearance, no scleral icterus. Neck: full ROM Respiratory: no respiratory distress. Cardiovascular: normal rate and rhythm, systolic murmur GI/Abdominal: soft, nontender, no guarding. Extremities: full range of motion, nontender. Neurological: CN II-XII intact, intact motor, intact sensation. Psychiatric: normal mood. Skin: warm, normal color Constitutional Vitals: Vital Signs Temp Pulse Resp BP Pulse Ox 97.5 F 70 16 163/91 94 05/07/21 16:00 05/07/21 16:00 05/07/21 16:00 05/07/21 16:00 05/07/21 16:00 Period Temp Pulse Resp BP Sys/Benson Pulse Ox Last 24 Hr 97.2 F-98.5 F 65-80 16-16 128-175/79-101 94-96 Intake and Output 05/07/21 05/07/21 05/07/21 05:59 13:59 21:59 Intake Total 50 997 942 Output Total 300 900 Balance -250 997 42 Intake & Output: Intake & Output 05/07/21 05/07/21 05/07/21 05:59 13:59 21:59 Intake Total 50 997 942 Output Total 300 900 Balance -250 997 42 Intake: IV 997 942 Sodium Chloride 0.9% 1,000 ml @ 997 942 100 mls/hr IV .Q10H [facility] Rx#: [id number] Oral 50 Output: Void Amount 300 900 Other: Urine Appearance Clear Urine Color Bright Yellow OBJ DATA Labs CBC & Chem 7: 05/06/21 06:50 05/06/21 06:50 Labs: Abnormal Lab Results 05/06/21 05/06/21 05/05/21 06:50 06:50 14:25 WBC 12.3 H Seg Neutrophils % 82 H Lymphocytes % VBG Lactic Acid 2.6 H Carbon Dioxide Anion Gap 18.0 H Creatinine Glucose 135 H Lactate Dehydrogenase 301 H Urine Glucose (UA) Urine Ketones 05/05/21 05/05/21 05/05/21 13:45 13:09 13:09 WBC 18.3 H Seg Neutrophils % 81 H Lymphocytes % 6 L VBG Lactic Acid Carbon Dioxide 19 L Anion Gap 20.0 H Creatinine 1.3 H Glucose 256 H Lactate Dehydrogenase Urine Glucose (UA) 150 A Urine Ketones 5 A Meds: Medications Amlodipine Besylate (Amlodipine 5 Mg Tablet) 10 mg PO QDAY [facility] Carvedilol ([facility]il[facility] 6.25 Mg [facility] Last Admin: 05/07/21 16:48 Dose: 12.5 mg Documented by: Docusate Sodium (Docusate Sodium 100 Mg Capsule) 100 mg PO BID [facility] Last Admin: 05/07/21 07:24 Dose: 100 mg Documented by: Sodium Chloride (Sodium Chloride 0.9%) 1,000 mls @ 100 mls/hr IV .Q10H [facility] Last Admin: 05/07/21 16:49 Dose: 100 mls/hr Documented by: Labetalol HCl (Labetalol 5 Mg/Ml Ml) 10 mg IV Q10M PRN PRN Reason: Blood Pressure Melatonin (Melatonin 3 Mg Tablet) 3 mg PO HSP PRN PRN Reason: Insomnia Ondansetron HCl (Ondansetron 4 Mg/2 Ml Vial) 4 mg IV Q6HP PRN PRN Reason: Nausea And Vomiting Last Admin: 05/07/21 11:55 Dose: 4 mg Documented by: Senna (Sennosides 1 Tablet) 2 tab PO HS [facility] Last Admin: 05/06/21 21:25 Dose: 2 tab Documented by: Sodium Chloride (0.9 % Sodium Chloride 10 Ml Syringe) 10 ml IV Q8 [facility] Last Admin: 05/07/21 11:59 Dose: Not Given Documented by: A/P Narrative A/P Narrative: Assessment: #Intractable nausea and vomiting -Gastroenteritis vs possible gastric outlet obstruction vs gastroparesis #Leukocytosis -Suspect stress leukocytosis #Thoracic aortic aneurysm #Abdominal aortic aneurysm s/p endograft #Hypertension Plan -Clamped NG tube -Antiemetic prn -IV fluid -BP meds -Monitor electrolytes -GI soft diet Time Spent With Patient Time: Total time spent is greater than 50% in coordination of care (as documented) at patient's floor/unit and/or counseling patient: QUALITY VTE Deep Vein Thrombosis/Pulmonary Embolism Present on Admission: No
[2021-05-07] MEDS: SENNOSIDES 1 TABLET PO SCH (19:22)
[2021-05-08] MEDS: 0.9 % SODIUM CHLORIDE 1,000 ML IV SCH ×2 (02:09→11:40)
[2021-05-08] MEDS: 0.9 % SODIUM CHLORIDE 10 ML SYRINGE IV SCH ×2 (04:19→14:00)
--- NOTE | 2021-05-08 08:43 | XRay Report ---
HISTORY: Nausea vomiting diarrhea, evaluate for distended stomach FINDINGS: The stomach is nondistended. The bowel pattern is normal without evidence of ileus or obstruction. No gross free intra-abdominal air is seen on this supine study. There is cement in the L1 vertebra following a prior kyphoplasty. There is an endograft in the aorta and a stent in the left common iliac artery. Severe atherosclerotic disease is present in the abdomen and pelvis. IMPRESSION: No acute abnormality Interpreted and Authenticated by: Richmond Bowling 05/08/21
[2021-05-08 08:53] LABS: Basophils # (Auto) 0.09 K/mcL (0.00-0.30); Basophils % (Auto) 0.7 % (0.0-2.0); Eosinophils # (Auto) 0.25 K/mcL (0.00-0.70); Eosinophils % (Auto) 2.1 % (0.0-7.0); Hematocrit 33.8 % (34.1-44.9); Lymphocytes # (Auto) 1.98 K/mcL (1.50-4.80); Lymphocytes % (Auto) 16.4 % (15.5-49.0); Mean Cell Volume 85.1 fL (80.0-100.0); Mean Corpuscular HGB Conc 32.5 g/dL (31.0-36.0); Mean Platelet Volume 8.9 fL (7.4-10.4); Monocytes # (Auto) 0.76 K/mcL (0.10-0.90); Monocytes % (Auto) 6.3 % (1.0-12.0); Neutrophils % (Auto) 74.5 % (38.0-78.0); Platelet Count 236 K/mcL (140-440); RBC 3.97 M/mcL (3.59-5.38)
[2021-05-08] MEDS ORDERED: amLODIPine 5 MG TABLET PO SCH (09:00)
[2021-05-08 09:16] LABS: ALT/SGPT 9 U/L (<40); AST/SGOT 30 U/L (<32); Albumin 3.5 gm/dL (3.2-5.2); Albumin/Globulin Ratio 1.3 (1.0-2.3); Alkaline Phosphatase 67 U/L (39-117); Bilirubin,Direct < 0.2 mg/dL (0-0.3); Bilirubin,Total 0.6 mg/dL (0.1-1.0); Blood Urea Nitrogen 16 mg/dL (8-23); Calcium 8.5 mg/dL (8.6-10.4); Carbon Dioxide 19 mmol/L (22-30); Chloride 101 mmol/L (96-108); Globulin 2.6 gm/dL (2.2-3.7); Glomerular Filtration Rate 73; Glucose 81 mg/dL (70-105); Lactate Dehydrogenase 307 U/L (135-225); Phosphorous 2.1 mg/dL (2.5-4.5); Triglycerides 170 mg/dL (<150); Uric Acid 5.4 mg/dL (2.5-8.0)
[2021-05-08] MEDS: CARVEDILOL 6.25 MG TABLET PO SCH ×2 (10:21→17:43)
[2021-05-08] MEDS: DOCUSATE SODIUM 100 MG CAPSULE PO SCH (10:21)
--- NOTE | 2021-05-08 15:54 | Discharge Summary ---
Discharge Provider Provider Patient information: Note initiated : 05/08/21 at 3:49 pm Service Date, if different from initiated Date: [] Patient: Nazanin Quarles 71 y/o F admitted on 05/05/21 for N/V/D. Chief Complaint: [] Date of admission: 05/05/21 22:40 Discharge date: 05/08/21 Primary care physician: Ju Silva Consults: 05/05/21 Consult to Physician [CONS] Stat Comment: Consulting Provider: Taran Dumont Reason For Exam: Physician to Consult Discharge Meds Discharge Medications Home Medications albuterol sulfate 90 mcg/actuation aerosol inhaler See Rx Instructions INHALATION .COMPLEX PRN 02/02/20 [History Confirmed 05/05/21 Last Taken Unknown] potassium chloride 20 meq PO HS 12/23/20 [History Confirmed 05/05/21 Last Taken 05/04/21] hydrocodone 10 mg-acetaminophen 325 mg tablet 1 tab PO Q6H PRN #120 tab 05/01/21 [Rx Confirmed 05/05/21 Last Taken Unknown] aspirin 81 mg PO HS 05/05/21 [History Confirmed 05/05/21 Last Taken 05/04/21] atorvastatin 40 mg HS 05/05/21 [History Confirmed 05/05/21 Last Taken 05/04/21] escitalopram oxalate 20 mg HS 05/05/21 [History Confirmed 05/05/21 Last Taken 05/04/21] methocarbamol 500 mg PO BID PRN 05/05/21 [History Confirmed 05/05/21 Last Taken Unknown] spironolactone 25 mg HS 05/05/21 [History Confirmed 05/05/21 Last Taken 05/04/21] amlodipine [Norvasc] 5 mg PO QDAY #60 tab 05/08/21 [Rx Last Taken Unknown] carvedilol [Coreg] 12.5 mg PO BID #60 tab 05/08/21 [Rx Last Taken Unknown] COURSE Hospital Course Hospital course: Ms. Quarles is a 71 year old female with a history of aortic aneurysm s/p abomintal aorta endograph who presented to the ED with intractable nausea and vomiting. Workup included a CT chest abdomen pelvis which showed a larger thoracic aortic aneurysm. The patient had a NG tube placed in the ED and felt much better after suction suggesting a possible gastric outlet obstruction vs gastroparesis. Hospital medicine was asked to admit the patient. 05/07: feels better today, clamped NG and started clears then advanced to GI soft which the patient did not tolerated. 05/08: removed NG tube after tolerating diet. Follow up abdominal xray does not show any gastric distention or evidence of ileous, discharged to home on higher dose of Norvasc 5 mg daily, new prescription for Carvedilol 12.5 mg daily as the patient has a large thoracic aortic aneurysm, continued spironolactone as before admission. All other prior medications continued. Follow up with vascular surgery in [place] for thoracic aneurysm. Physical exam Head: Atraumatic, normal inspection. Eyes: normal appearance, no scleral icterus. Neck: full ROM Respiratory: no respiratory distress. Cardiovascular: normal rate and rhythm, systolic murmur GI/Abdominal: soft, nontender, no guarding. Extremities: full range of motion, nontender. Neurological: CN II-XII intact, intact motor, intact sensation. Psychiatric: normal mood. Skin: warm, normal color Discharge diagnosis: Intractable nausea and vomiting Secondary discharge diagnosis: #Thoracic aortic aneurysm #Abdominal aortic aneurysm s/p endograft #Hypertension Time Spent with Patient Time attestation: Total time spent providing and/or coordinating discharge services: EXAM Constitutional Vitals: Temp Pulse Resp BP Pulse Ox 97.2 F 62 18 113/73 96 05/08/21 12:00 05/08/21 12:00 05/08/21 12:00 05/08/21 12:00 05/08/21 12:00 Discharge Data Data Completed and Pending Labs on day of discharge: Labs from last 24 hours 05/08/21 05/08/21 05:30 05:30 WBC 12.0 H RBC 3.97 Hgb 11.0 L Hct 33.8 L MCV 85.1 MCH 27.7 MCHC 32.5 RDW 13.0 Plt Count 236 MPV 8.9 Neut % (Auto) 74.5 Lymph % (Auto) 16.4 Dare % (Auto) 6.3 Eos % (Auto) 2.1 Baso % (Auto) 0.7 Lymph # (Auto) 1.98 Dare # (Auto) 0.76 Eos # (Auto) 0.25 Baso # (Auto) 0.09 Absolute Neutrophils 8.96 H Sodium 136 Potassium 3.3 Chloride 101 Carbon Dioxide 19 L Anion Gap 16.0 BUN 16 Creatinine 0.8 GFR Calculation 73 Glucose 81 Uric Acid 5.4 Calcium 8.5 L Phosphorus 2.1 L Magnesium 1.7 Total Bilirubin 0.6 Direct Bilirubin < 0.2 GGT 14 AST 30 ALT 9 Alkaline Phosphatase 67 Lactate Dehydrogenase 307 H Total Protein 6.1 Albumin 3.5 Globulin 2.6 Albumin/Globulin Ratio 1.3 Triglycerides 170 H Preliminary micro results at discharge 05/05/21 16:25 Blood Culture - Preliminary Blood 05/05/21 16:20 Blood Culture - Preliminary Blood Discharge Plan Patient/Caregiver Discharge Instructions Activity: increase activity as tolerated Diet: Regular Diet Prescriptions: New amlodipine [Norvasc] 5 mg tablet 5 mg PO QDAY Qty: 60 RF: 4 carvedilol [Coreg] 12.5 mg tablet 12.5 mg PO BID Qty: 60 RF: 4 Continued hydrocodone-acetaminophen 10-325 mg tablet 1 tab PO Q6H PRN (Reason: pain) Qty: 120 RF: 0 albuterol sulfate 90 mcg/actuation HFA aerosol inhaler See Rx Instructions INHALATION .COMPLEX PRN (Reason: Shortness Of Breath) RF: 0 potassium chloride 10 mEq tablet extended release 20 meq PO HS RF: 0 aspirin 81 mg Capsule 81 mg PO HS RF: 0 methocarbamol 500 mg Tablet 500 mg PO BID PRN (Reason: Pain) RF: 0 atorvastatin 40 mg tablet 40 mg HS RF: 0 spironolactone 25 mg tablet 25 mg HS RF: 0 escitalopram oxalate 20 mg tablet 20 mg HS RF: 0 Discontinued amlodipine 2.5 mg tablet 2.5 mg PO HS RF: 0 Follow Up Plan Follow up with: Ju Silva ARNP [Primary Care Provider] - Patient Disposition: Home, Self-Care Discharge Orders: Discharge Order (Routine); Ordered 05/08/21 Ordered By: Taran SPENCER VTE Deep Vein Thrombosis/Pulmonary Embolism Present on Admission: No
== END 2021-05-08 17:55 | disposition home or self-care (01) ==
LOC: ED 10:58 → INTOOBSV 22:40 → MEDSUR 22:40
PROVIDERS: ADMIT Internal Medicine; ATTEND Internal Medicine

== ENCOUNTER 2023-09-08 11:07 | Inpatient (IN) ==
[2023-09-08] MEDS ORDERED: IOPAMIDOL 100 ML BOTTLE IV ONE (11:08)
[2023-09-08] MEDS ORDERED: PANTOPRAZOLE 40 MG VIAL IV ONE ×2 (11:45→23:18)
[2023-09-08] MEDS ORDERED: MAG HYDROX/AL HYDROX/SIMETH 30 ML ORAL.SUSP PO ONE (11:45)
[2023-09-08] MEDS ORDERED: PROMETHAZINE 25 MG/ML VIAL IV ONE ×2 (11:46→17:29)
[2023-09-08] MEDS ORDERED: metroNIDAZOLE 500 MG TABLET PO ONE (12:05)
[2023-09-08 12:07] LABS: Basophils # (Auto) 0.01 K/mcL (0.00-0.30); Basophils % (Auto) 0.1 % (0.0-2.0); Eosinophils # (Auto) 0 K/mcL (0.00-0.70); Eosinophils % (Auto) 0 % (0.0-7.0); Hematocrit 42.3 % (34.1-44.9); Lymphocytes # (Auto) 0.95 K/mcL (1.50-4.80); Lymphocytes % (Auto) 7.9 % (15.5-49.0); Mean Cell Volume 86.2 fL (80.0-100.0); Mean Corpuscular HGB Conc 33.1 g/dL (31.0-36.0); Mean Platelet Volume 8.7 fL (8.8-12.5); Monocytes # (Auto) 0.28 K/mcL (0.10-0.90); Monocytes % (Auto) 2.3 % (1.0-12.0); Neutrophils % (Auto) 89.3 % (38.0-78.0); Platelet Count 311 K/mcL (140-440); RBC 4.91 M/mcL (3.59-5.38); Red Cell Distribution Width 15.6 % (11.5-14.5)
[2023-09-08] MEDS ORDERED: 0.9 % SODIUM CHLORIDE 1,000 ML IV ONE (12:07)
[2023-09-08] MEDS ORDERED: 0.9 % SODIUM CHLORIDE 500 ML IV ONE ×2 (12:07→17:21)
[2023-09-08] MEDS: CEFEPIME 2 GM VIAL IV SCH ×2 (12:18→23:23)
[2023-09-08 12:32] LABS: ALT/SGPT 12 U/L (<40); AST/SGOT 27 U/L (<32); Albumin 4.7 gm/dL (3.2-5.2); Albumin/Globulin Ratio 1.2 (1.0-2.3); Alkaline Phosphatase 71 U/L (39-117); Bilirubin,Total 0.6 mg/dL (0.1-1.0); Blood Urea Nitrogen 14 mg/dL (8-23); Calcium 10.6 mg/dL (8.6-10.4); Carbon Dioxide 18 mmol/L (22-30); Chloride 100 mmol/L (96-108); Globulin 3.9 gm/dL (2.2-3.7); Glomerular Filtration Rate 49; Glucose 250 mg/dL (70-105)
[2023-09-08] MEDS ORDERED: METOCLOPRAMIDE 10 MG/2 ML VIAL IV ONE (13:21)
[2023-09-08 15:28] LABS: Blood Urea Nitrogen 14 mg/dL (8-23); Calcium 8.9 mg/dL (8.6-10.4); Carbon Dioxide 20 mmol/L (22-30); Chloride 108 mmol/L (96-108); Glomerular Filtration Rate 62; Glucose 146 mg/dL (70-105)
[2023-09-08 17:14] LABS: Appearance,Urine Clear (Clear); Bilirubin,Urine Negative (Negative); Color,Urine Yellow; Culture Indicated,Urine Yes; Glucose,Urine (UA) Negative (Negative); Ketones,Urine Negative (Negative); Leukocyte Esterase,Urine Negative /uL (Negative); Nitrate,Urine Negative (Negative); Protein,Urine Negative (Negative); Specific Gravity,Urine 1.015 (1.000-1.035); Urine Blood Trace-intact ery/mcL (Negative); Urine Budding Yeast Few /hpf; Urine RBC 1 /hpf (0-3); Urine Squamous Epithelial Cell 1 /hpf (0-4); Urine WBC 1 /hpf (0-4); Urobilinogen,Urine Normal
[2023-09-08 17:55] LABS: Lymphocytes % 8 % (15-49); Monocytes % (Manual) 5 % (1-12); Platelet Estimate NORMAL (Normal); RBC Morphology NORMAL (Normal); Segmented Neutrophils % 87 % (38-78)
[2023-09-08] MEDS ORDERED: HYDROcodone/APAP 10/325MG TABLET PO ONE (18:21)
[2023-09-08] MEDS ORDERED: METHOCARBAMOL 500 MG TABLET PO ONE (18:21)
[2023-09-08] MEDS ORDERED: hydrOXYzine 25 MG TABLET PO PRN (22:59)
[2023-09-08] MEDS ORDERED: PROMETHAZINE 25 MG/ML VIAL IV PRN (22:59)
[2023-09-08] MEDS ORDERED: BISMUTH SUBSALICYLATE 15 ML ORAL.SUSP PO ONE (22:59)
[2023-09-08] MEDS ORDERED: morphine 4 MG/ML VIAL IV PRN (22:59)
[2023-09-08] MEDS ORDERED: ACETAMINOPHEN 325 MG TABLET PO PRN (22:59)
[2023-09-08] MEDS ORDERED: BISMUTH SUBSALICYLATE 15 ML ORAL.SUSP PO PRN (22:59)
[2023-09-08] MEDS ORDERED: HYDROcodone/APAP 5/325MG TABLET PO PRN (22:59)
[2023-09-08] MEDS ORDERED: DEXTROSE 31 GM ORAL.SUSP PO PRN (22:59)
[2023-09-08] MEDS ORDERED: POTASSIUM CHLORIDE 40 MEQ in DEXTROSE 5% IN WATER 500 ML IV PRN (22:59)
[2023-09-08] MEDS ORDERED: hydrALAZINE 20 MG/ML VIAL IV PRN (22:59)
[2023-09-08] MEDS ORDERED: POTASSIUM CHLORIDE 20 MEQ TABLET PO PRN ×2 (22:59)
[2023-09-08] MEDS ORDERED: METOCLOPRAMIDE 10 MG/2 ML VIAL IV PRN (22:59)
[2023-09-08] MEDS ORDERED: DEXTROSE 50% 50 ML VIAL IV PRN (22:59)
[2023-09-08] MEDS ORDERED: MAGNESIUM SULFATE 2 GM/50 ML BAG IV PRN (22:59)
[2023-09-08] MEDS ORDERED: IPRATROPIUM/ALBUTEROL 3 ML AMPUL.NEB NEB PRN (22:59)
[2023-09-08] MEDS: PANTOPRAZOLE 40 MG VIAL IV SCH (23:21)
[2023-09-08] MEDS: 0.9 % SODIUM CHLORIDE 1,000 ML IV SCH (23:22)
[2023-09-08 23:48] LABS: Estimated Average Glucose(eAG) 120 mg/dL; Hemoglobin A1C 5.8 % Hgb (4.0-6.0)
[2023-09-09] MEDS ORDERED: INSULIN LISPRO 1 UNIT/0.01 ML UNIT SQ ONE (00:11)
[2023-09-09] MEDS: INSULIN LISPRO 1 UNIT/0.01 ML UNIT SQ SCH ×5 (00:12→21:16)
[2023-09-09 06:16] LABS: Basophils # (Auto) 0.02 K/mcL (0.00-0.30); Basophils % (Auto) 0.2 % (0.0-2.0); Eosinophils # (Auto) 0 K/mcL (0.00-0.70); Eosinophils % (Auto) 0 % (0.0-7.0); Hematocrit 41.1 % (34.1-44.9); Lymphocytes # (Auto) 1.91 K/mcL (1.50-4.80); Lymphocytes % (Auto) 14.7 % (15.5-49.0); Mean Cell Volume 90.7 fL (80.0-100.0); Mean Corpuscular HGB Conc 31.6 g/dL (31.0-36.0); Mean Platelet Volume 9.2 fL (8.8-12.5); Monocytes # (Auto) 0.82 K/mcL (0.10-0.90); Monocytes % (Auto) 6.3 % (1.0-12.0); Neutrophils % (Auto) 78.4 % (38.0-78.0); Platelet Count 298 K/mcL (140-440); RBC 4.53 M/mcL (3.59-5.38); Red Cell Distribution Width 16.3 % (11.5-14.5)
[2023-09-09 06:45] LABS: ALT/SGPT 6 U/L (<40); AST/SGOT 30 U/L (<32); Albumin 4.3 gm/dL (3.2-5.2); Albumin/Globulin Ratio 1.4 (1.0-2.3); Alkaline Phosphatase 59 U/L (39-117); Bilirubin,Direct < 0.2 mg/dL (0-0.3); Bilirubin,Total 0.5 mg/dL (0.1-1.0); Blood Urea Nitrogen 11 mg/dL (8-23); Calcium 9.2 mg/dL (8.6-10.4); Carbon Dioxide 19 mmol/L (22-30); Chloride 108 mmol/L (96-108); Globulin 3.1 gm/dL (2.2-3.7); Glomerular Filtration Rate 62; Glucose 124 mg/dL (70-105); Lactate Dehydrogenase 274 U/L (135-225); Phosphorous 2.8 mg/dL (2.5-4.5); Triglycerides 110 mg/dL (<150); Uric Acid 5.3 mg/dL (2.5-8.0)
[2023-09-09] MEDS: CEFEPIME 2 GM VIAL IV SCH ×3 (07:15→22:05)
[2023-09-09] MEDS ORDERED: HYDROcodone/APAP 10/325MG TABLET PO PRN (07:42)
[2023-09-09] MEDS ORDERED: METOCLOPRAMIDE 10 MG TABLET PO PRN (07:42)
[2023-09-09] MEDS ORDERED: METHOCARBAMOL 500 MG TABLET PO PRN (07:42)
[2023-09-09] MEDS: amLODIPine 10 MG TABLET PO SCH (09:02)
[2023-09-09] MEDS: ENOXAPARIN 30 MG/0.3 ML SYRINGE SQ SCH (09:02)
[2023-09-09] MEDS: PANTOPRAZOLE 40 MG VIAL IV SCH ×2 (09:02→21:27)
[2023-09-09] MEDS: busPIRone 15 MG TABLET PO SCH ×2 (09:02→21:27)
[2023-09-09] MEDS: hydrALAZINE 10 MG TABLET PO SCH ×3 (09:03→21:27)
[2023-09-09] MEDS: CARVEDILOL 12.5 MG TABLET PO SCH ×2 (09:03→17:13)
[2023-09-09] MEDS ORDERED: hydrOXYzine 25 MG TABLET PO ONE (09:03)
[2023-09-09] MEDS: SODIUM BICARBONATE 650 MG TABLET PO SCH ×3 (09:03→21:27)
[2023-09-09] MEDS ORDERED: LABETALOL HCL 20 MG/4 ML VIAL IV PRN (09:05)
[2023-09-09] MEDS: ESCITALOPRAM 20 MG TABLET PO SCH (09:07)
[2023-09-09] MEDS ORDERED: LORazepam 2 MG/ML VIAL IV ONE (09:07)
[2023-09-09] MEDS: SIMETHICONE 80 MG TAB.CHEW CHEWED SCH ×4 (09:18→21:26)
[2023-09-09] MEDS ORDERED: LORazepam 2 MG/ML VIAL IV PRN (10:29)
[2023-09-09] MEDS: ONDANSETRON 4 MG/2 ML VIAL IV PRN ×2 (11:27→21:25)
[2023-09-09] MEDS: LABETALOL 5 MG/ML ML IV PRN (16:05)
[2023-09-09] MEDS: 0.9 % SODIUM CHLORIDE 1,000 ML IV SCH (16:53)
[2023-09-09] MEDS: ATORVASTATIN 40 MG TABLET PO SCH (21:27)
[2023-09-09] MEDS: ASPIRIN 81 MG TAB.CHEW PO SCH (21:27)
[2023-09-09] MEDS: METOCLOPRAMIDE 10 MG/2 ML VIAL IV SCH (23:36)
[2023-09-10] MEDS: METOCLOPRAMIDE 10 MG/2 ML VIAL IV SCH ×4 (05:59→23:08)
[2023-09-10] MEDS: CEFEPIME 2 GM VIAL IV SCH (06:00)
[2023-09-10] MEDS: LABETALOL 5 MG/ML ML IV PRN (06:11)
[2023-09-10 07:07] LABS: Basophils # (Auto) 0.04 K/mcL (0.00-0.30); Basophils % (Auto) 0.4 % (0.0-2.0); Eosinophils # (Auto) 0 K/mcL (0.00-0.70); Eosinophils % (Auto) 0 % (0.0-7.0); Hemoglobin 12.9 g/dL (11.2-15.7); Lymphocytes # (Auto) 1.59 K/mcL (1.50-4.80); Lymphocytes % (Auto) 14.9 % (15.5-49.0); Mean Cell Volume 89.1 fL (80.0-100.0); Mean Corpuscular HGB Conc 32.3 g/dL (31.0-36.0); Monocytes # (Auto) 0.75 K/mcL (0.10-0.90); Neutrophils % (Auto) 77.3 % (38.0-78.0); Platelet Count 294 K/mcL (140-440); RBC 4.49 M/mcL (3.59-5.38); WBC 10.7 K/mcL (4.5-11.0)
[2023-09-10] MEDS: INSULIN LISPRO 1 UNIT/0.01 ML UNIT SQ SCH ×4 (07:56→20:44)
[2023-09-10] MEDS: CARVEDILOL 12.5 MG TABLET PO SCH ×2 (07:57→17:52)
[2023-09-10] MEDS: SIMETHICONE 80 MG TAB.CHEW CHEWED SCH ×4 (07:57→20:43)
[2023-09-10 08:16] LABS: ALT/SGPT 10 U/L (<40); AST/SGOT 34 U/L (<32); Albumin 4.2 gm/dL (3.2-5.2); Albumin/Globulin Ratio 1.4 (1.0-2.3); Alkaline Phosphatase 56 U/L (39-117); Bilirubin,Direct < 0.2 mg/dL (0-0.3); Bilirubin,Total 0.7 mg/dL (0.1-1.0); Blood Urea Nitrogen 18 mg/dL (8-23); Calcium 8.6 mg/dL (8.6-10.4); Carbon Dioxide 19 mmol/L (22-30); Chloride 107 mmol/L (96-108); Globulin 3.1 gm/dL (2.2-3.7); Glomerular Filtration Rate 55; Glucose 145 mg/dL (70-105); Lactate Dehydrogenase 298 U/L (135-225); Phosphorous 1.7 mg/dL (2.5-4.5); Triglycerides 196 mg/dL (<150); Uric Acid 5.3 mg/dL (2.5-8.0)
[2023-09-10] MEDS: PANTOPRAZOLE 40 MG VIAL IV SCH ×2 (08:34→20:53)
[2023-09-10] MEDS: busPIRone 15 MG TABLET PO SCH ×2 (08:34→20:42)
[2023-09-10] MEDS: ESCITALOPRAM 20 MG TABLET PO SCH (08:34)
[2023-09-10] MEDS: hydrALAZINE 10 MG TABLET PO SCH ×3 (08:35→20:44)
[2023-09-10] MEDS: ENOXAPARIN 30 MG/0.3 ML SYRINGE SQ SCH (08:35)
[2023-09-10] MEDS: amLODIPine 10 MG TABLET PO SCH (08:35)
[2023-09-10 08:38] LABS: Prothrombin Time 13.7 sec (11.9-14.5)
[2023-09-10] MEDS: LORazepam 2 MG/ML VIAL IV PRN ×2 (10:54→20:53)
[2023-09-10] MEDS ORDERED: POTASSIUM PHOSPHATE 40 MEQ in DEXTROSE 5% IN WATER 500 ML IV ONE (11:00)
[2023-09-10] MEDS ORDERED: KETAMINE 50 MG/ML Syringe IV ONE (11:16)
[2023-09-10] MEDS ORDERED: PROPOFOL 200 MG/20 ML VIAL IV ONE (12:09)
[2023-09-10] MEDS ORDERED: ONDANSETRON 4 MG/2 ML VIAL IV ONE (12:09)
[2023-09-10] MEDS: ONDANSETRON 4 MG/2 ML VIAL IV PRN (17:06)
[2023-09-10] MEDS: ASPIRIN 81 MG TAB.CHEW PO SCH (20:43)
[2023-09-10] MEDS: ATORVASTATIN 40 MG TABLET PO SCH (20:43)
[2023-09-10] MEDS ORDERED: GABAPENTIN 300 MG CAPSULE PO SCH (21:00)
[2023-09-10] MEDS ORDERED: AMITRIPTYLINE 25 MG TABLET PO SCH (21:00)
[2023-09-11] MEDS: METOCLOPRAMIDE 10 MG/2 ML VIAL IV SCH (05:17)
[2023-09-11 07:09] LABS: ALT/SGPT 9 U/L (<40); AST/SGOT 28 U/L (<32); Albumin 3.9 gm/dL (3.2-5.2); Albumin/Globulin Ratio 1.5 (1.0-2.3); Alkaline Phosphatase 58 U/L (39-117); Bilirubin,Direct < 0.2 mg/dL (0-0.3); Bilirubin,Total 0.6 mg/dL (0.1-1.0); Blood Urea Nitrogen 20 mg/dL (8-23); Calcium 8.2 mg/dL (8.6-10.4); Carbon Dioxide 20 mmol/L (22-30); Chloride 105 mmol/L (96-108); Globulin 2.6 gm/dL (2.2-3.7); Glomerular Filtration Rate 55; Glucose 99 mg/dL (70-105); Lactate Dehydrogenase 298 U/L (135-225); Phosphorous 2.9 mg/dL (2.5-4.5); Triglycerides 198 mg/dL (<150); Uric Acid 5.5 mg/dL (2.5-8.0)
[2023-09-11] MEDS: INSULIN LISPRO 1 UNIT/0.01 ML UNIT SQ SCH (08:10)
[2023-09-11] MEDS: SIMETHICONE 80 MG TAB.CHEW CHEWED SCH (08:10)
[2023-09-11] MEDS: PANTOPRAZOLE 40 MG VIAL IV SCH (08:10)
[2023-09-11] MEDS: ENOXAPARIN 30 MG/0.3 ML SYRINGE SQ SCH (08:10)
[2023-09-11] MEDS: CARVEDILOL 12.5 MG TABLET PO SCH (08:11)
[2023-09-11] MEDS: busPIRone 15 MG TABLET PO SCH (08:11)
[2023-09-11] MEDS: hydrALAZINE 10 MG TABLET PO SCH (08:11)
[2023-09-11] MEDS: amLODIPine 10 MG TABLET PO SCH (08:11)
[2023-09-11] MEDS: ESCITALOPRAM 20 MG TABLET PO SCH (08:11)
== END 2023-09-11 12:05 | disposition home or self-care (01) ==
LOC: ED 11:07 → ICU 22:54 → MEDSUR 09-10 15:29
PROVIDERS: ADMIT Internal Medicine; ATTEND Internal Medicine